=== PATIENT | male | born 1960 ===

== ENCOUNTER 2017-08-25 19:58 | Emergency (ER) | payer BC ==
[~2017-08-25] VITALS: Ht 170.2 cm; Wt 90.7 kg
[~2017-08-25 19:58] MED LIST: AMOX500C2 PO; AZIT-21 PO; CLN150C PO; HYDR118S10 PO; HYDR1TAB86 PO; LACT1CAP39 PO; LISI1TAB10 PO; LISI1TAB6 PO; LORA1TAB PO; METH4TAB PO; OMG1KC PO; ONDA-42 SL; PRD50T PO; SULF-222 PO; SULF1TAB38 PO
--- OUTSIDE RECORDS SUMMARY | 2017-08-25 20:03 | XMS REPORT | Continuity of Care Document ---
Author Author [facility] Organization [facility] Address Unknown Phone Unavailable Allergies Active Description Code Type Severity Reaction Onset Reported/Identified Relationship to Patient Clinical Status Yes No Known Drug Allergies [id number] Drug Allergy Mild N/A 06/28/2009 Medications There is no data. Problems Date Dx Coded Attending Type Code Diagnosis Diagnosed By 05/01/2011 Ot 401.9 HYPERTENSION NOS 05/01/2011 Ot 473.9 CHRONIC SINUSITIS NOS 05/01/2011 Ot 490 BRONCHITIS NOS 05/01/2011 Ot 786.2 COUGH 07/10/2013 BRUCE WIGGINS, LISBETH Jon Ot 038.9 SEPTICEMIA NOS 07/10/2013 BRUCE WIGGINS, LISBETH Jon Ot 401.9 HYPERTENSION NOS 07/10/2013 LISBETH BARRERA MD Ot 682.3 CELLULITIS OF ARM 07/10/2013 LISBETH BARRERA MD Ot 790.6 ABN BLOOD CHEMISTRY NEC 07/10/2013 LISBETH BARRERA MD Ot 881.10 OPEN WOUND FOREARM-COMPL 07/10/2013 LISBETH BARRERA MD Ot 995.91 SEPSIS 07/10/2013 LISBETH BARRERA MD Ot E000.8 OTHER EXTERNAL CAUSE STATUS 07/10/2013 LISBETH BARRERA MD Ot E920.8 ACC-CUTTING INSTRUM NEC 07/10/2013 LISBETH BARRERA MD Ot V06.1 [id number], COMBINED [ 07/10/2013 BRUCE WIGGINS, LISBETH Jon Ot V15.82 HISTORY OF TOBACCO USE 07/18/2013 MATEUS WIGGINS, YOHANA Pearson Ot 682.3 CELLULITIS OF ARM 07/24/2013 LISBETH BARRERA MD Ot 682.3 CELLULITIS OF ARM 07/24/2013 LISBETH BARRERA MD Ot 881.10 OPEN WOUND FOREARM-COMPL 07/24/2013 LISBETH BARRERA MD Ot E000.8 OTHER EXTERNAL CAUSE STATUS 07/24/2013 LISBETH BARRERA MD Ot E920.8 ACC-CUTTING INSTRUM NEC 06/14/2014 [facility] Ot 787.91 DIARRHEA Procedures Code Description Performed By Performed On 86.04 OTHER SKIN SUBQ I D 07/08/2013 Results There is no data. Encounters ACCT No. Visit Date/Time Discharge Status Pt. Type Provider Facility Loc./Unit Complaint [id number] 06/14/2014 11:10:00 06/14/2014 14:00:00 DIS Emergency [facility] ER ABD PAIN/DIARRHEA [id number] 07/17/2013 15:57:00 07/24/2013 08:57:00 DIS Outpatient BRUCE WIGGINS, LISBETH Jon [facility] WOUNDCARE SORE ARM [id number] 07/18/2013 09:06:00 07/18/2013 10:50:00 DIS Emergency MATEUS WIGGINS, YOHANA Pearson [facility] ER RIGHT ARM CELLULITIS [id number] 07/04/2013 11:30:00 07/10/2013 17:06:00 DIS Inpatient LISBETH BARRERA MD [facility] SURGICAL CELLULITIS [id number] 01/31/2013 12:57:00 01/31/2013 23:59:59 CLS Outpatient [id number] 05/01/2011 21:25:00 Document Registration [email or web address] 06/15/2014 01:27:29 ACT Document Registration
[2017-08-25] MEDS ORDERED: KETOROLAC 30 MG/ML VIAL IJ ONE (21:00)
--- NOTE | 2017-08-25 21:00 | ED GU-Male ---
General Chief Complaint: -Male Stated Complaint: PAINFUL URINATING Nursing Triage Note: PT REPORTS PAINFUL URINATION STARTING TODAY. HE ALSO C/O HEMATURIA AND FREQUENCY. Source: patient Exam Limitations: no limitations History of Present Illness Date Seen by Provider: Aug 25, 2017 Time Seen by Provider: 20:52 Initial Comments Patient presents to ER by private conveyance with a chief complaint of today started experiencing some bloody urine, dysuria and pain in his right flank and teste. He says he might of felt a little warm but no chills, sweats, nausea. He is having quite a bit of pain and has not taken anything for it yet. He says he does not have any significant medical history, history of kidney stones, history of urinary tract infections or STI's. He has no abdominal surgeries, history of recent trauma. He is not on blood thinners. Allergies and Home Medications Allergies Coded Allergies: No Known Drug Allergies (Unverified , 10/27/09) Home Medications Hctz/Lisinopril 1 Tab Tablet, 1 TAB PO DAILY Prescribed by: ANTHONY BURCIAGA on 07/04/13 1436 Hydrocodone Bit/Acetaminophen 1 Each Tablet, 1-2 EACH PO Q4H PRN for PAIN Prescribed by: RAFAEL DOBBS on 07/10/13 0855 Hydrocodone/Acetaminophen 1 Each Tablet, 1-2 EACH PO Q6H PRN for PAIN Prescribed by: YOHANA IGNACIO on 07/18/13 1046 Lactobacillus Rhamnosus 1 Cap Capsule, 1 CAP PO BID Prescribed by: RAFAEL DOBBS on 07/10/13 0855 [place] 3 Polyunsat Fatty Acids 1,000 Mg Cap, 2,000 MG PO BID Prescribed by: ANTHONY BURCIAGA on 07/04/13 1436 Ondansetron Hcl 4 Mg Tab, 4 MG SL Q4H PRN for NAUSEA/VOMITING FOR NAUSEA AND VOMITING Prescribed by: SYLVESTER SAHNI on 06/14/14 1259 Trimethoprim/Sulfamethoxazole 1 Ea Tablet, 1 EA PO BID Prescribed by: YOHANA IGNACIO on 07/18/13 1046 Trimethoprim/Sulfamethoxazole 1 Ea Tablet, 1 EA PO BID Prescribed by: SYLVESTER SAHNI on 06/14/14 1307 Patient Home Medication List Home Medication List Reviewed: Yes Constitutional: chills, No dizziness, No fever, malaise EENTM: No ear pain, No nose congestion Respiratory: No cough, No short of breath Cardiovascular: No chest pain, No palpitations Gastrointestinal: see HPI, abdominal pain, constipation, No diarrhea, No nausea , No vomiting Genitourinary: burning, denies discharge, dysuria, denies frequency Musculoskeletal: No back pain, No joint pain Skin: No pruritus, No rash Psychiatric/Neurological: Denies Headache, Denies Numbness Past Mtfduba-Rbcmwo-Pcgpyr Hx Patient Social History Alcohol Use: Denies Use Recreational Drug Use: No (QUIT SMOKING 2 YEARS AGO) Smoking Status: Former Smoker 2nd Hand Smoke Exposure: No Recent Foreign Travel: No Contact w/Someone Who Travel: No Recent Infectious Disease Expo: No Recent Hopitalizations: No Immunizations Up To Date Tetanus Booster (TDap): Less than 5yrs Date of Influenza Vaccine: Feb 24, 2013 Seasonal Allergies Seasonal Allergies: No Surgeries History of Surgeries: Yes (ARM) Respiratory History of Respiratory Disorde: No Cardiovascular History of Cardiac Disorders: No Cardiac Disorders: Hypertension Neurological History of Neurological Disord: No Gastrointestinal History of Gastrointestinal Di: No Musculoskeletal History of Musculoskeletal Dis: No Endocrine History of Endocrine Disorders: No Cancer History of Cancer: No Psychosocial History of Psychiatric Problem: No Integumentary History of Skin or Integumenta: No Blood Transfusions History of Blood Disorders: No Family Medical History Family Medial History: Family history: Hypertension 09 BROTHER 09 SISTER Physical Exam Vital Signs Vital Signs - First Documented 08/25/17 20:34 Temp 99.0 Pulse 70 Resp 16 B/P (MAP) 145/91 (109) Pulse Ox 100 O2 Delivery Room Air Capillary Refill : Less Than 3 Seconds General Appearance: WD/WN, no apparent distress HEENT: PERRL/EOMI, pharynx normal Neck: non-tender, normal inspection Cardiovascular: normal peripheral pulses, regular rate, rhythm Respiratory: no respiratory distress, no accessory muscle use Gastrointestinal: normal bowel sounds, non tender, soft Back: normal inspection, no vertebral tenderness, CVA tenderness (R) Extremities: normal range of motion, non-tender Neurologic/Psychiatric: no motor/sensory deficits, alert, oriented x 3 Skin: normal color, warm/dry Progress/Results/Core Measures Suspected Sepsis Recent Fever Within 48 Hours: No Infection Criteria Present: None New/Unexplained Altered Menta: No Sepsis Screen: No Definite Risk Sepsis Diagnosis: SIRS Temperature:99.0 Pulse: 70 Respiratory Rate: 16 Blood Pressure 145 /91 Mean: 109 Results/Orders Lab Results Laboratory Tests Test 08/25/17 20:45 Range/Units Urine Color RED H Urine Clarity VERY CLOUDY H Urine pH 6.5 5-9 Urine Specific [place] 1.010 L 1.016-1.022 Urine Protein 3+ H NEGATIVE Urine Glucose (UA) NEGATIVE NEGATIVE Urine Ketones NEGATIVE NEGATIVE Urine Nitrite POSITIVE H NEGATIVE Urine Bilirubin NEGATIVE NEGATIVE Urine Urobilinogen NORMAL NORMAL MG/DL Urine Leukocyte Esterase 3+ H NEGATIVE Urine RBC (Auto) 5+ H NEGATIVE Urine RBC TNTC H /HPF Urine WBC 10-25 H /HPF Urine Crystals NONE /LPF Urine Bacteria FEW H /HPF Urine Casts NONE /LPF Urine Mucus NEGATIVE /LPF Urine Culture Indicated YES My Orders Orders - BEN BENNETT Ua Culture If Indicated (08/25/17 20:22) Ct Abd/Pelvis Wo(Kidney Stone) (08/25/17 20:55) Ketorolac Injection (Toradol Injection) (08/25/17 21:00) Urine Culture (08/25/17 20:45) Medications Given in ED Current Medications Medications Dose Ordered Sig/Sue Route Start Time Stop Time Status Last Admin Dose Admin Ketorolac Tromethamine 30 mg ONCE ONCE IJ 08/25/17 21:00 08/25/17 21:01 DC 08/25/17 21:00 30 MG Vital Signs/I&O Vital Sign - Last 12Hours 08/25/17 20:34 Temp 99.0 Pulse 70 Resp 16 B/P (MAP) 145/91 (109) Pulse Ox 100 O2 Delivery Room Air Capillary Refill : Less Than 3 Seconds Blood Pressure Mean: 109 Progress Note : Time: 21:00 Progress Note Urine. Right flank pain extending down in the right testis. Concern for kidney stone versus malignancy etc. We don't find a stone we'll refer him to urology for follow-up and treat any infection appropriately. Ketorolac IM for pain. Diagnostic Imaging Diagonstic Imaging: CT (without contrast) Plain Films/CT/US/NM/MRI: abdomen, pelvis Comments NAME: THEO IRAHETA MED REC#: [id number] PT STATUS: REG ER : 1960 PHYSICIAN: BEN BENNETT MD ADMIT DATE: 04/01/18/ER Draft Date of Exam:08/25/17 CT ABD/PELVIS WO(KIDNEY STONE) PROCEDURE: CT urinary tract, rule out kidney stone. TECHNIQUE: Multiple contiguous axial images were obtained through the abdomen and pelvis without the use of intravenous contrast. INDICATION: Hematuria. Difficulty urinating. COMPARISON: CT abdomen and pelvis with IV contrast 06/14/2014. FINDINGS: Lung bases are clear. Diffuse fatty infiltration of the liver. The gallbladder, pancreas, spleen, adrenals, left kidney and collecting systems are negative on this noncontrast exam. Hypoattenuating exophytic mass measuring up 1.0 cm along the inferior pole of the right kidney likely represents a small hemorrhagic cyst. Enlarged prostate. Moderate bladder wall thickening. Large bilateral fat-containing inguinal hernias. Mild scattered diverticulosis without evidence of active diverticulitis. Negative appendix. No free intraperitoneal air or fluid. No lymphadenopathy. No evidence of bowel obstruction. Moderate spondylotic changes in the lumbar spine. No acute osseous findings. IMPRESSION: 1. Markedly enlarged prostate and bladder wall thickening suspicious for outlet obstruction. No hydronephrosis. No renal stones. 2. Large bilateral fat-containing inguinal hernias. 3. A 1.0 cm hypoattenuating exophytic mass along the inferior margin of the right kidney like represents a hemorrhagic cyst. This could be better evaluated with multiphasic dedicated contrast enhanced CT if clinically warranted. Dictated on workstation # [id number] Dict: 08/25/17 2147 Trans: 08/25/17 2157 [id number] [id number] Interpreted by: MAUREEN ZENG MD Electronically signed by: Reviewed: Reviewed by Me Departure Impression Impression: Primary Impression: Hemorrhage of cyst of [place] kidney Additional Impression: Urinary tract infection Qualified Codes: N30.01 - Acute cystitis with hematuria Disposition: HOME, SELF-CARE Condition: Stable Departure-Patient Inst. Decision time for Depature: 22:03 Referrals: [facility] (PCP/Family) Primary Care Physician Patient Instructions: Blood in the Urine (Hematuria), Adult (DC) Add. Discharge Instructions: Please call Dr. Pearce at [phone] to obtain an appointment this week. If you start to have chest pain, shortness of breath fevers or chills then you should return to care. Otherwise you need to follow-up with Dr. Pearce, urology for your kidney mass. Drink plenty of fluids and if you have a hard time urinating, initiating a stream or emptying your bladder then you should return to the ER. 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 All discharge instructions reviewed with patient and/or family. Voiced understanding. Scripts Sulfamethoxazole/Trimethoprim (Bactrim Ds Tablet) 1 Each Tablet 1 EACH PO BID, #20 TAB 0 Refills Prov: BEN BENNETT 08/25/17 Copy Copies To 1: CATRACHO BLUE DO; ANALI PEARCE MD, TITUS J Aug 25, 2017 21:00
[2017-08-25 21:04] LABS: BILIRUBIN,URINE NEGATIVE (NEGATIVE); CLARITY,URINE VERY CLOUDY; COLOR,URINE RED; GLUCOSE, URINE (UA) NEGATIVE (NEGATIVE); KETONES,URINE NEGATIVE (NEGATIVE); LEUKOCYTE ESTERASE ,URINE 3+ (NEGATIVE); NITRITE,URINE POSITIVE (NEGATIVE); PH,URINE 6.5 (5-9); PROTEIN,URINE 3+ (NEGATIVE); UROBILINOGEN,URINE NORMAL (NORMAL)
[2017-08-25 21:11] LABS: BACTERIA,URINE FEW /HPF; RBC,URINE TNTC /HPF
--- NOTE | 2017-08-25 21:57 | Diagnostic Imaging Report ---
PROCEDURE: CT urinary tract, rule out kidney stone. TECHNIQUE: Multiple contiguous axial images were obtained through the abdomen and pelvis without the use of intravenous contrast. INDICATION: Hematuria. Difficulty urinating. COMPARISON: CT abdomen and pelvis with IV contrast 06/14/2014. FINDINGS: Lung bases are clear. Diffuse fatty infiltration of the liver. The gallbladder, pancreas, spleen, adrenals, left kidney and collecting systems are negative on this noncontrast exam. Hyperattenuating exophytic mass measuring up 1.0 cm along the inferior pole of the right kidney likely represents a small hemorrhagic cyst. Enlarged prostate. Moderate bladder wall thickening. Large bilateral fat-containing inguinal hernias. Mild scattered diverticulosis without evidence of active diverticulitis. Negative appendix. No free intraperitoneal air or fluid. No lymphadenopathy. No evidence of bowel obstruction. Moderate spondylotic changes in the lumbar spine. No acute osseous findings. IMPRESSION: 1. Markedly enlarged prostate and bladder wall thickening suspicious for outlet obstruction. No hydronephrosis. No renal stones. 2. Large bilateral fat-containing inguinal hernias. 3. A 1.0 cm hyperattenuating exophytic mass along the inferior margin of the right kidney like represents a hemorrhagic cyst. This could be better evaluated with multiphasic dedicated contrast enhanced CT if clinically warranted. Dictated by: Dictated on workstation # [id number]
[2017-08-25] MEDS ORDERED: SULF1TAB35 PO (22:07)
[2017-08-25] MEDS ORDERED: cefTRIAXone 1 GM (ROCEPHIN) VIAL IM ONE (22:15)
[2017-08-25] MEDS ORDERED: LIDOCAINE 1% INJ 20 ML 20 ML VIAL INJ ONE (22:15)
[2017-08-25] MEDS ORDERED: LIDOCAINE PF 1% 5 ML (XYLOCAINE) AMP ONE (22:16)
[2017-08-25 22:21] VITALS: BP 145/91
== END 2017-08-25 22:21 | disposition home or self-care (01) ==
LOC: EDUNIT# 19:58 → ER 20:00
DX: N28.89 Other specified disorders of kidney and ureter (principal); N39.0 Urinary tract infection, site not specified; I10 Essential (primary) hypertension; Z87.442 Personal history of urinary calculi; Z87.891 Personal history of nicotine dependence
CPT/HCPCS: 74176; 81000; 87088; 87186; 96372

== ENCOUNTER → 2017-09-06 | Outpatient (CLI) | payer BC, OTHER ==
[~2017-09-06] MED LIST changes: +CATHETER FLUSH 10 ML SYR IV PRN; +IOHEXOL 350 MG/ML 100 ML (OMNIPAQUE 350) VIAL IV ONE; +NS 250 ML (IVPB) BAG IV ONE; +SULF1TAB35 PO
--- NOTE | 2017-09-06 09:14 | Diagnostic Imaging Report ---
PROCEDURE: CT abdomen with contrast only. TECHNIQUE: Multiple contiguous axial images were obtained through the abdomen after the administration of intravenous contrast. INDICATION: Abdominal pain and dysuria. Comparison is made with prior CT abdomen and pelvis without contrast from 08/25/2017. The lung bases are clear apart from elevation of right hemidiaphragm with associated subsegmental atelectasis in the right middle lobe and right lower lobe. The liver is diffusely low density consistent with hepatic steatosis. No discrete liver mass is identified. The gallbladder is unremarkable. The pancreas and spleen are unremarkable. No adrenal mass is identified. Left kidney is unremarkable. The previously noted exophytic lesion are arising from the lower pole of the right kidney is difficult to characterize due to small size as well as lack of precontrast images on today's study. Therefore, accurate assessment for enhancement cannot be performed. This lesion measures approximately 10 mm. This lesion appeared to measure approximately 7-[address] from 06/14/2014. The aorta is non-aneurysmal. No central retroperitoneal lymphadenopathy seen. Small and large bowel loops are normal caliber. There is no ascites. The appendix is unremarkable. Bony structures are nonacute. IMPRESSION: 1. 10 mm right lower pole renal lesion, as described. Assessment for enhancement cannot be performed due to absence of precontrast images. The lesion does have higher density measurements and could potentially represent a hemorrhagic cyst versus solid lesion. Continued close interval followup is recommended to confirm stability. When followup is obtained, pre-and postcontrast CT is recommended. 2. Hepatic steatosis. Dictated by: Dictated on workstation # [id number]
== END ==
LOC: RAD 08:30
PROVIDERS: ATTEND Urology
DX: N28.1 Cyst of kidney, acquired (principal)
CPT/HCPCS: 74160

== ENCOUNTER → 2017-12-20 | Outpatient (CLI) | payer BC ==
[~2017-12-20] MED LIST changes: +RECEIVED CONTRAST (Hold Metformin) IV SCH
[2017-12-20 09:01] LABS: BUN/CREATININE RATIO 15; CREATININE SERUM 0.72 MG/DL (0.60-1.30); GFR ESTIMATED > 60
--- NOTE | 2017-12-20 11:49 | Diagnostic Imaging Report ---
PROCEDURE: CT abdomen with and without contrast. TECHNIQUE: Multiple contiguous axial CT images of the abdomen were obtained prior to and after intravenous administration of iodinated contrast. INDICATION: Right renal cyst, abdominal pain. FINDINGS: Previous CT abdomen of 09/06/2017 did note a 10 MM right lower pole renal lesion. That finding is again evident on this study and does not appear to have changed significantly. This finding does not have the typical appearance of a simple cyst but this may well represent a benign process. The fact that this lesion has not changed significantly in size since the 2015 exam would also weigh against this finding being related to an aggressive neoplastic process. If further evaluation is desired, then ultrasound would be recommended. If the ultrasound exam is not performed, then a short-term (6 month) followup CT exam should be obtained. The overall appearance of the abdomen is otherwise no different. The low density appearance of liver does suggest fatty metamorphosis. The spleen, pancreas, adrenals, gallbladder, aorta and inferior vena cava are unremarkable for an acute abnormality. The stomach is is not well-distended and consequently difficult to assess. The lung bases are clear. The bone windows show no evidence for fracture or for destructive lesion. IMPRESSION: 1. The small 10 MM nodular density along the inferior pole of the right kidney is of uncertain etiology although most likely benign. Recommendations as above. 2. There is no acute abnormality of the abdomen. Dictated by: Dictated on workstation # [id number]
== END ==
LOC: RAD 08:28
PROVIDERS: ATTEND Urology
DX: N28.1 Cyst of kidney, acquired (principal)
CPT/HCPCS: 36415; 74170; 82565; 84520

== ENCOUNTER → 2018-03-28 | Outpatient (CLI) | payer BC ==
[~2018-03-28] MED LIST changes: -CATHETER FLUSH 10 ML SYR IV PRN
--- NOTE | 2018-03-28 09:07 | Diagnostic Imaging Report ---
PROCEDURE: CT abdomen with and without contrast. TECHNIQUE: Multiple contiguous axial CT images of the abdomen were obtained prior to and after intravenous administration of iodinated contrast. INDICATION: Renal cyst, followup. Comparison is made with prior CT from 12/20/2017. The lung bases remain clear apart from minimal scarring or atelectasis in the lingula. Diffuse low-density throughout the liver is again noted consistent with hepatic steatosis. The gallbladder is unremarkable. No biliary ductal dilatation is seen. The pancreas and spleen are unremarkable. No adrenal mass is identified. The left kidney is unremarkable. The small lesion involving the lower pole of the right kidney remains stable at approximately 10 mm. This is hyperdense but there does not appear to be significant contrast enhancement. This may represent a hemorrhagic cyst. The aorta is nonaneurysmal. No central, retroperitoneal or mesenteric lymphadenopathy is detected. Small and large bowel loops are normal caliber. The appendix is unremarkable. There is no ascites. IMPRESSION: 1. Stable 10 mm right lower pole renal lesion when compared with exam from 12/20/2017. This lesion has not shown much change since CT dating back to 06/14/2014 which is reassuring for benign etiology. 2. Hepatic steatosis. Dictated by: Dictated on workstation # [id number]
== END ==
LOC: RAD 08:05
PROVIDERS: ATTEND Urology
DX: N28.1 Cyst of kidney, acquired (principal); K76.0 Fatty (change of) liver, not elsewhere classified
CPT/HCPCS: 74170

== ENCOUNTER → 2018-09-26 | Outpatient (CLI) | payer BC ==
[~2018-09-26] MED LIST changes: -IOHEXOL 350 MG/ML 100 ML (OMNIPAQUE 350) VIAL IV ONE; -NS 250 ML (IVPB) BAG IV ONE; -RECEIVED CONTRAST (Hold Metformin) IV SCH
--- NOTE | 2018-09-26 12:45 | Diagnostic Imaging Report ---
PROCEDURE: CT abdomen without contrast. TECHNIQUE: Multiple contiguous axial images were obtained through the abdomen without the use of intravenous contrast. Auto Exposure Controls were utilized during the CT exam to meet ALARA standards for radiation dose reduction. INDICATION: Cyst, right kidney. FINDINGS: The previous CT abdomen/pelvis exam of 03/28/2018 noted a stable 10 mm right lower pole renal lesion. That finding is again evident on this study and does not appear to have changed significantly. This finding is slightly larger than noted on the prior exam of 06/14/2014 and does not appear to have changed significantly. Consequently, I do suspect that this is a benign process. The right kidney itself seems stable as well. The left kidney is unremarkable. The liver is of lower density than usually seen, and this appearance does suggest fatty metamorphosis. The spleen, pancreas, adrenals, gallbladder, aorta, and inferior vena cava are unremarkable for an acute abnormality. The stomach is not well distended and consequently difficult to assess. The lung bases are clear. There is mild compressive atelectasis in the right mid lung near the elevated right hemidiaphragm. The bone windows show no sign of a fracture or of a destructive lesion. There is trefoil stenosis at L3-4. IMPRESSION: 1. The small nodule along the inferior pole of the right kidney seen previously does not appear to have changed adversely. Most likely, this is a benign process. 2. There is no acute abnormality of the abdomen. 3. There is degenerative disc and bony disease involving the lumbar spine, and there is trefoil stenosis at L3-4. Dictated on workstation # [id number]
== END ==
LOC: RAD 08:32
PROVIDERS: ATTEND Urology
DX: N28.1 Cyst of kidney, acquired (principal); M47.816 Spondylosis without myelopathy or radiculopathy, lumbar region; M89.9 Disorder of bone, unspecified; M48.061 Spinal stenosis, lumbar region without neurogenic claudication
CPT/HCPCS: 74150

== ENCOUNTER 2019-10-30 12:56 | Emergency (ER) | payer BC ==
[~2019-10-30] VITALS: Ht 170 cm; Wt 93.0 kg
--- NOTE | 2019-10-30 14:05 | Diagnostic Imaging Report ---
INDICATION: Pain FINDINGS: There is extensive chondrocalcinosis in the right knee with marked meniscal calcifications laterally bilaterally. There is tricompartmental osteoarthritis. The disease is somewhat greater right than left. No fracture or dislocation. No acute bony abnormality. IMPRESSION: Bilateral osteoarthritis as well as chondrocalcinosis greater right than left. No fracture or acute bony abnormalities. Dictated by: Dictated on workstation # [id number]
--- NOTE | 2019-10-30 14:25 | ED Lower Extremity ---
General Chief Complaint: Lower Extremity Stated Complaint: KNEE PAIN Nursing Triage Note: PT CO OF BILATERAL KNEE PAIN, DENIES INJURY Nursing Sepsis Screen: No Definite Risk Source: patient Exam Limitations: no limitations History of Present Illness Date Seen by Provider: Oct 30, 2019 Time Seen by Provider: 13:10 Initial Comments Bilateral knee pain no injury for a long time but worse for the past week Onset: other Severity: moderate Pain/Injury Location: bilateral knee Method of Injury: unknown Modifying Factors: Worse With Movement Allergies and Home Medications Allergies Coded Allergies: No Known Drug Allergies (Unverified , 10/27/09) Home Medications Hctz/Lisinopril 1 Tab Tablet, 1 TAB PO DAILY Prescribed by: ANTHONY BURCIAGA on 07/04/13 1436 Hydrocodone Bit/Acetaminophen 1 Each Tablet, 1-2 EACH PO Q4H PRN for PAIN Prescribed by: RAFAEL DOBBS on 07/10/13 0855 Hydrocodone/Acetaminophen 1 Each Tablet, 1-2 EACH PO Q6H PRN for PAIN Prescribed by: YOHANA IGNACIO on 07/18/13 1046 Lactobacillus Rhamnosus 1 Cap Capsule, 1 CAP PO BID Prescribed by: RAFAEL DOBBS on 07/10/13 0855 Meloxicam 7.5 Mg Tablet, 7.5 MG PO DAILY Prescribed by: SYLVESTER SAHNI on 10/30/19 1426 [place] 3 Polyunsat Fatty Acids 1,000 Mg Cap, 2,000 MG PO BID Prescribed by: ANTHONY BURCIAGA on 07/04/13 1436 Ondansetron Hcl 4 Mg Tab, 4 MG SL Q4H PRN for NAUSEA/VOMITING FOR NAUSEA AND VOMITING Prescribed by: SYLVESTER SAHNI on 06/14/14 1259 Sulfamethoxazole/Trimethoprim 1 Each Tablet, 1 EACH PO BID Prescribed by: BEN BENNETT on 08/25/17 2207 Trimethoprim/Sulfamethoxazole 1 Ea Tablet, 1 EA PO BID Prescribed by: YOHANA IGNACIO on 07/18/13 1046 Trimethoprim/Sulfamethoxazole 1 Ea Tablet, 1 EA PO BID Prescribed by: SYLVESTER SAHNI on 06/14/14 1307 Patient Home Medication List Home Medication List Reviewed: Yes Review of Systems Constitutional: see HPI; No chills, No fever, No malaise, No weakness EENTM: see HPI Respiratory: no symptoms reported Cardiovascular: no symptoms reported Genitourinary: no symptoms reported Musculoskeletal: see HPI, joint pain; No muscle pain Skin: no symptoms reported Psychiatric/Neurological: No Symptoms Reported Past Ixurzfm-Kfocjo-Hcqxeq Hx Patient Social History Alcohol Use: Denies Use Recreational Drug Use: No Smoking Status: Never a Smoker 2nd Hand Smoke Exposure: No Recent Foreign Travel: No Contact w/Someone Who Travel: No Recent Infectious Disease Expo: No Recent Hopitalizations: No Physical Abuse: No Sexual Abuse: No Immunizations Up To Date Tetanus Booster (TDap): Less than 5yrs Date of Influenza Vaccine: Feb 24, 2013 Seasonal Allergies Seasonal Allergies: No Past Medical History Surgeries: Yes (ARM) Respiratory: No Cardiac: No Hypertension Neurological: No Gastrointestinal: No Musculoskeletal: No Endocrine: No Cancer: No Psychosocial: No Integumentary: No Blood Disorders: No Family Medical History Family history: Hypertension 09 BROTHER 09 SISTER Physical Exam Vital Signs Vital Signs - First Documented 10/30/19 13:13 Temp 36.4 Pulse 87 Resp 18 B/P (MAP) 144/88 (106) Pulse Ox 97 Capillary Refill : Less Than 3 Seconds Height, Weight, BMI Height: 5'7.00" Weight: 200lbs. oz. 90.128821eq; 32.00 BMI Method:Stated General Appearance: WD/WN, no apparent distress HEENT: PERRL/EOMI, normal ENT inspection Respiratory: no respiratory distress, no accessory muscle use Hips: bilateral hip non-tender, bilateral hip normal inspection, bilateral hip normal range of motion Legs: bilateral leg non-tender, bilateral leg normal inspection, bilateral leg normal range of motion Knees: bilateral knee non-tender, bilateral knee normal inspection, bilateral knee normal range of motion Ankles: bilateral ankle non-tender, bilateral ankle normal inspection, bilateral ankle normal range of motion Neurologic/Psychiatric: alert, normal mood/affect, oriented x 3 Skin: normal color, warm/dry Progress/Results/Core Measures Results/Orders My Orders Orders - SYLVESTER SAHNI APRN Knee, 3 Views, Bilateral (10/30/19 13:18) Vital Signs/I&O 10/30/19 13:13 Temp 36.4 Pulse 87 Resp 18 B/P (MAP) 144/88 (106) Pulse Ox 97 Blood Pressure Mean: 106 Departure Impression Primary Impression: Osteoarthritis Qualified Codes: M17.0 - Bilateral primary osteoarthritis of knee Disposition: HOME, SELF-CARE Condition: Stable Departure-Patient Inst. Decision time for Depature: 14:25 Referrals: NO,LOCAL PHYSICIAN (PCP/Family) Primary Care Physician Patient Instructions: Osteoarthritis Add. Discharge Instructions: 1. Return to ER for any concerns 2. Follow-up with your doctor next week 3. All discharge instructions reviewed with patient and/or family. Voiced understanding. 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
[2019-10-30] MEDS ORDERED: MELO7.5T46 PO (14:26)
[2019-10-30 14:31] VITALS: BP 144/88
--- OUTSIDE RECORDS SUMMARY | 2019-10-30 15:17 | XMS REPORT | Continuity of Care Document ---
Author Organization Unknown Address Unknown Phone Unavailable Allergies Active Description Code Type Severity Reaction Onset Reported/Identified Relationship to Patient Clinical Status Yes No Known Drug Allergies [id number] Drug Allergy Mild N/A 06/28/2009 Medications There is no data. Problems Date Dx Coded Attending Type Code Diagnosis Diagnosed By 05/01/2011 Ot 401.9 HYPE RTENSION NOS 05/01/2011 Ot 473.9 COLOR STRAINER MADDIE SINUSITIS NOS 05/01/2011 Ot 490 BRONCH ITIS NOS 05/01/2011 Ot 786.2 COUGH 07/10/2013 LISBETH BARRERA MD Ot 038.9 SEPTICEMIA NOS 07/10/2013 LISBETH BARRERA MD Ot 401.9 HYPERTENSION NOS 07/10/2013 LISBETH BARRERA [...] NEC 07/10/2013 LISBETH BARRERA MD Ot V06.1 [id number], COMBINED [ 07/10/2013 LISBETH BARRERA MD Ot V15.82 HISTORY OF TOBACCO USE 07/18/2013 MATEUS WIGGINS, YOHANA Pearson Ot 682.3 CELLULITIS OF ARM 07/24/2013 LISBETH BARRERA MD Ot 682.3 CELLULITIS OF ARM 07/24/2013 LISBETH BARRERA MD Ot 881.10 OPEN WOUND FOREARM-COMPL 07/24/2013 LISBETH BARRERA MD Ot E000.8 OTHER EXTERNAL CAUSE STATUS 07/24/2013 LISBETH BARRERA MD Ot E920.8 ACC-CUTTING INSTRUM NEC 06/14/2014 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 89 OTHER SPECIFIED DISORDERS OF KIDNEY AND 08/25/2017 BEN BENNETT MD Ot N39. 0 URINARY TRACT INFECTION, SITE NOT SPECIF 08/25/2017 BEN BENNETT MD Ot R30. 0 DYSURIA 08/25/2017 BEN BENNETT MD J Ot Z87.442 PERSONAL HISTORY OF URINARY CALCULI 08/25/2017 BEN BENNETT MD Ot Z87.891 PERSONAL HISTORY OF NICOTINE DEPENDENCE 08/27/2017 BEN BENNETT MD Ot I10 ESSENTIAL (PRIMARY) HYPERTENSION 08/27/2017 BEN BENNETT MD Ot N28. 89 OTHER SPECIFIED DISORDERS OF KIDNEY AND 08/27/2017 BEN BENNETT MD Ot N39. 0 URINARY TRACT INFECTION, SITE NOT SPECIF 08/27/2017 BEN BENNETT MD Ot R30. 0 DYSURIA 08/27/2017 BEN BENNETT MD Ot Z87.442 PERSONAL HISTORY OF URINARY CALCULI 08/27/2017 BEN BENNETT MD Ot Z87.891 PERSONAL HISTORY OF NICOTINE DEPENDENCE 09/09/2017 RAMSES WIGGINS, ANALI A Ot N28.1 CYST OF KIDNEY, ACQUIRED 09/16/2017 RAMSES WIGGINS, ANALI A Ot N28.1 CYST OF KIDNEY, ACQUIRED 09/25/2017 RAMSES WIGGINS, ANALI A Ot N28.1 CYST OF KIDNEY, ACQUIRED 10/18/2017 RAMSES WIGGINS, ANALI A Ot N28.1 CYST OF KIDNEY, ACQUIRED 12/16/2017 RAMSES WIGGINS, ANALI A Ot N28.1 CYST OF KIDNEY, ACQUIRED 12/16/2017 RAMSES WIGGINS, ANALI A Ot N28.1 CYST OF KIDNEY, ACQUIRED 01/13/2018 RAMSES WIGGINS, ANALI A Ot N28.1 CYST OF KIDNEY, ACQUIRED 01/17/2018 RAMSES WIGGINS, ANALI A Ot N28.1 CYST OF KIDNEY, ACQUIRED 01/17/2018 RAMSES WIGGINS, ANALI A Ot N28.1 CYST OF KIDNEY, ACQUIRED 03/18/2018 ANALI PEARCE MD Ot N28.1 CYST OF KIDNEY, ACQUIRED 03/31/2018 ANALI PEARCE MD, Ot K76.0 FATTY (CHANGE OF) LIVER, NOT ELSEWHERE C 03/31/2018 ANALI PEARCE MD, Ot N28.1 CYST OF KIDNEY, ACQUIRED 04/03/2018 ANALI PEARCE MD Ot K76.0 FATTY (CHANGE OF) LIVER, NOT ELSEWHERE C 04/03/2018 ANALI PEARCE MD, Ot N28.1 CYST OF KIDNEY, ACQUIRED 05/23/2018 ANALI PEARCE MD Ot K76.0 FATTY (CHANGE OF) LIVER, NOT ELSEWHERE C 05/23/2018 ANALI PEARCE MD, Ot N28.1 CYST OF KIDNEY, ACQUIRED 06/24/2018 ANALI PEARCE MD, Ot N28.1 CYST OF KIDNEY, ACQUIRED 06/24/2018 ANALI PEARCE MD, Ot N28.1 CYST OF KIDNEY, ACQUIRED 06/24/2018 ANALI PEARCE MD Ot K76.0 FATTY (CHANGE OF) LIVER, NOT ELSEWHERE C 06/24/2018 ANALI PEARCE MD, Ot N28.1 CYST OF KIDNEY, ACQUIRED 06/24/2018 ANALI PEARCE MD Ot K76.0 FATTY (CHANGE OF) LIVER, NOT ELSEWHERE C 06/24/2018 ANALI PEARCE MD, Ot N28.1 CYST OF KIDNEY, ACQUIRED 07/08/2018 ANALI PEARCE MD Ot K76.0 FATTY (CHANGE OF) LIVER, NOT ELSEWHERE C 07/08/2018 ANALI PEARCE MD, Ot N28.1 CYST OF KIDNEY, ACQUIRED 09/28/2018 ANALI PEARCE MD, Ot 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 09/28/2018 ANALI PEARCE MD, Ot M48.0 61 SPINAL STENOSIS, LUMBAR REGION WITHOUT N 09/28/2018 ANALI PEARCE MD, Ot M89.9 DISORDER OF BONE, UNSPECIFIED 09/28/2018 ANALI PEARCE MD Ot N28.1 CYST OF KIDNEY, ACQUIRED 2018 ANALI PEARCE MD, Ot N28.1 CYST OF KIDNEY, ACQUIRED 2018 ANALI PEARCE MD, Ot N28.1 CYST OF KIDNEY, ACQUIRED 2018 ANALI PEARCE MD, Ot K76.0 FATTY (CHANGE OF) LIVER, NOT ELSEWHERE C 2018 ANALI PEARCE MD, Ot N28.1 CYST OF KIDNEY, ACQUIRED 2018 ANALI PEARCE MD, Ot 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 2018 ANALI PEARCE MD Ot M48.0 61 SPINAL STENOSIS, LUMBAR REGION WITHOUT N 2018 ANALI PEARCE MD, Ot M89.9 DISORDER OF BONE, UNSPECIFIED 2018 ANALI PEARCE MD, Ot N28.1 CYST OF KIDNEY, ACQUIRED 11/12/2018 ANALI PEARCE MD, Ot 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 11/12/2018 ANALI PEARCE MD Ot M48.0 61 SPINAL STENOSIS, LUMBAR REGION WITHOUT N 11/12/2018 ANALI EPARCE MD, Ot M89.9 DISORDER OF BONE, UNSPECIFIED 11/12/2018 ANALI PEARCE MD, Ot N28.1 CYST OF KIDNEY, ACQUIRED 11/14/2018 ANALI PEARCE MD, Ot 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 11/14/2018 ANALI PEARCE MD, Ot M48.0 59 SPINAL STENOSIS, LUMBAR REGION WITHOUT N 11/14/2018 ANALI PEARCE MD, Ot M89.9 DISORDER OF BONE, UNSPECIFIED 11/14/2018 ANALI PEARCE MD, Ot N28.1 CYST OF KIDNEY, ACQUIRED 06/06/2019 SUREKHAGERARDO GUILLEN F M53.3 Sacrococcygeal disorders, not elsewhere classified 06/06/2019 SUREKHAGERARDO GUILLEN A F M54.2 Cervicalgia 06/06/2019 GERARDO IRBY F M62.8 38 Other muscle spasm Procedures Code Description Performed By Per formed On 86.04 OTHE R SKIN SUBQ I D 07/08/2013 Results Test Result Range Complete urinalysis with reflex to cultu re - 08/25/17 20:45 Urine color determination RED NRG Urine clarity determination VERY CLOUDY NRG Urine pH measurement by test strip 6.5 5-9 Specific gravity of urine by test strip 1.010 1.016-1.022 Urine protein assay by test strip, semi-quantitative 3+ NEGATIVE Urine glucose detection by automated test strip NE GATIVE NEGATIVE Erythrocytes detection in urine sediment by light micr oscopy 5+ NEGATIVE Urine ketones detection by automated test strip NE GATIVE NEGATIVE Urine nitrite detection by test strip POSITIVE NEGATIVE Urine total bilirubin detection by test strip NEGA TIVE NEGATIVE Urine urobilinogen measurement by automated test strip (mass/volume) NORMAL NORMAL Urine leukocyte esterase detection by dipstick 3+ NEGATIVE Automated urine sediment erythrocyte cou nt by microscopy (number/high power field) TNTC NRG Automated urine sediment leukocyte count by microscopy (number/high power field) [HPF] NRG Bacteria detection in urine sediment by light microsco py FEW NRG Crystals detection in urine sediment by light microsco py NONE NRG Casts detection in urine sediment by light microscopy NONE NRG Mucus detection in urine sediment by light microscopy NEGATIVE NRG Complete urinalysis with reflex to culture YES NRG Bacterial urine culture - 08/25/17 20:45 Bacterial urine culture [id number] [facility] Bacterial susceptibility panel - 8 20:45 Gentamicin susceptibility test by minimum inhibitory c oncentration <= NRG Trimethoprim/sulfamethoxazole susceptibi lity test by minimum inhibitoryconcentration S NRG Ampicillin susceptibility test by minimum inhibitory c oncentration <= NRG Tobramycin susceptibility test by minimum inhibitory c oncentration <= NRG Cefazolin susceptibility test by minimum inhibitory co ncentration <= NRG Ceftriaxone susceptibility test by minimum inhibitory concentration <= NRG Ampicillin/sulbactam susceptibility test by minimum inhibitory concentration <= NRG Piperacillin/tazobactam susceptibility t est by minimum inhibitory concentration S NRG Ciprofloxacin susceptibility test by minimum inhibitor y concentration <= NRG Meropenem susceptibility test by minimum inhibitory co ncentration <= NRG Nitrofurantoin susceptibility test by mi nimum inhibitory concentration <= NRG Aztreonam susceptibility test by minimum inhibitory co ncentration <= NRG Extended spectrum beta lactamase (ESBL) producing bacteria susceptibility test by minimum inhibitory concentration - [facility] [id number] - 12/20/17 08:41 Serum or plasma urea nitrogen measurement (mass/volume ) 11 mg/dL 7-18 Serum or plasma creatinine measurement (mass/volume) 0.72 mg/dL 0.60-1.30 Serum or plasma urea nitrogen/creatinine mass ratio 15 NRG Serum or plasma creatinine measurement w ith calculation of estimated glomerular filtration rate > NRG Encounters ACCT No. Visit Date/Time Discharge Status Pt. Type Provider Facility Loc./Unit Complaint [id number] 06/06/2019 15:04:00 06/06/2019 16: 20:00 DIS Emergency SUREKHA GERARDO A [facility] ED [id number] 09/26/2018 08:32:00 019 23:59:59 CLS Outpatient ANALI PEARCE MD [facility] RAD RT COMPLEX RENAL CYST [id number] 03/28/2018 08:05:00 018 23:59:59 CLS Outpatient ANALI PEARCE MD [facility] RAD RT COMPLEX RENAL CYST [id number] 12/20/2017 08:28:00 018 23:59:59 CLS Outpatient ANALI PEARCE MD [facility] RAD RV COMPLEX URAL CYST [id number] 09/06/2017 08:30:00 018 23:59:59 CLS Outpatient ANALI PEARCE MD [facility] RAD RT RENAL CYST [id number] 08/25/2017 20:00:00 018 22:21:00 DIS Emergency BEN BENNETT MD [facility] ER PAINFUL URINATING [id number] 06/14/2014 11:10:00 015 14:00:00 DIS Emergency SYLVESTER SAHNI APRN [facility] ER ABD PAIN/DIARRHEA [id number] 07/17/2013 15:57:00 014 08:57:00 DIS Outpatient BRUCE WIGGINS, LISBETH Jon [facility] WOUNDCARE SORE ARM [id number] 07/18/2013 09:06:00 014 10:50:00 DIS Emergency YOHANA IGNACIO MD [facility] ER RIGHT ARM CELLU LITIS [id number] 07/04/2013 11:30:00 014 17:06:00 DIS Inpatient BRUCE WIGGINS, LISBETH Jon [facility] SURGICAL CELLULITIS [id number] 01/31/2013 12:57:00 013 23:59:59 CLS Outpatient [id number] 10/30/2019 12:57:[address] Emergency SYLVESTER SAHNI APRN [facility] ER KNEE PAIN [id number] 05/01/2011 21:25:00 Document Registration
== END 2019-10-30 14:31 | disposition home or self-care (01) ==
LOC: EDUNIT# 12:56 → ER 12:57
DX: M17.0 Bilateral primary osteoarthritis of knee (principal); I10 Essential (primary) hypertension; Z82.49 Family history of ischemic heart disease and other diseases of the circulatory system

== ENCOUNTER 2019-12-22 19:13 | Emergency (ER) | payer BC ==
[~2019-12-22] VITALS: Ht 167 cm; Wt 90.7 kg
[~2019-12-22 19:13] MED LIST changes: +MELO7.5T46 PO
[2019-12-22] MEDS ORDERED: NS IV 1000 ML 1,000 ML IV SCH ×2 (19:45→20:30)
[2019-12-22 19:46] LABS: BILIRUBIN,URINE NEGATIVE (NEGATIVE); CLARITY,URINE SL CLOUDY; COLOR,URINE YELLOW; GLUCOSE, URINE (UA) NEGATIVE (NEGATIVE); KETONES,URINE NEGATIVE (NEGATIVE); LEUKOCYTE ESTERASE ,URINE 3+ (NEGATIVE); NITRITE,URINE NEGATIVE (NEGATIVE); PROTEIN,URINE NEGATIVE (NEGATIVE)
--- NOTE | 2019-12-22 19:54 | ED Abdominal Pain ---
General Stated Complaint: PAINFUL UNRINATION Source of Information: Patient Exam Limitations: No Limitations History of Present Illness Date Seen by Provider: Dec 22, 2019 Time Seen by Provider: 19:43 Initial Comments 59-year-old male who presents to the emergency room with complaints of burning and pain with urination. He reports that he's had this in the past and received for antibiotics. Denies any nausea, vomiting, diarrhea. He denies any fevers. Timing/Duration: 1-2 Days Location: [facility] Associated Symptoms: Denies Symptoms Allergies and Home Medications Allergies Coded Allergies: No Known Drug Allergies (Unverified , 10/27/09) Home Medications Ciprofloxacin HCl 500 Mg Tablet, 500 MG PO BID Prescribed by: FABIAN LANDAVERDE on 12/22/19 2145 Hctz/Lisinopril 1 Tab Tablet, 1 TAB PO DAILY Prescribed by: ANTHONY BURCIAGA on 07/04/13 1436 Hydrocodone Bit/Acetaminophen 1 Each Tablet, 1-2 EACH PO Q4H PRN for PAIN Prescribed by: RAFAEL DOBBS on 07/10/13 0855 Hydrocodone/Acetaminophen 1 Each Tablet, 1-2 EACH PO Q6H PRN for PAIN Prescribed by: YOHANA IGNACIO on 07/18/13 1046 Lactobacillus Rhamnosus 1 Cap Capsule, 1 CAP PO BID Prescribed by: RAFAEL DOBBS on 07/10/13 0855 Meloxicam 7.5 Mg Tablet, 7.5 MG PO DAILY Prescribed by: SYLVESTER SAHNI on 10/30/19 1426 [place] 3 Polyunsat Fatty Acids 1,000 Mg Cap, 2,000 MG PO BID Prescribed by: ANTHONY BURCIAGA on 07/04/13 1436 Ondansetron Hcl 4 Mg Tab, 4 MG SL Q4H PRN for NAUSEA/VOMITING FOR NAUSEA AND VOMITING Prescribed by: SYLVESTER SAHNI on 06/14/14 1259 Sulfamethoxazole/Trimethoprim 1 Each Tablet, 1 EACH PO BID Prescribed by: BEN BENNETT on 08/25/17 2207 Trimethoprim/Sulfamethoxazole 1 Ea Tablet, 1 EA PO BID Prescribed by: YOHANA IGNACIO on 07/18/13 1046 Trimethoprim/Sulfamethoxazole 1 Ea Tablet, 1 EA PO BID Prescribed by: SYLVESTER SAHNI on 06/14/14 1307 Patient Home Medication List Home Medication List Reviewed: Yes Review of Systems Review of Systems Constitutional: see HPI; No chills, No fever Genitourinary: See HPI, Burning, Urgency All Other Systems Reviewed Negative Unless Noted: Yes Past Qhjdzkr-Dlnjzq-Ehsrnm Hx Past Med/Social Hx: Reviewed Nursing Past Med/Soc Hx Patient Social History 2nd Hand Smoke Exposure: No Recent Foreign Travel: No Contact w/Someone Who Travel: No Recent Hopitalizations: No Immunizations Up To Date Tetanus Booster (TDap): Less than 5yrs Date of Influenza Vaccine: Feb 24, 2013 Seasonal Allergies Seasonal Allergies: No Past Medical History Surgeries: Yes (ARM) Respiratory: No Cardiac: No Hypertension Neurological: No Gastrointestinal: No Musculoskeletal: No Endocrine: No Cancer: No Psychosocial: No Integumentary: No Blood Disorders: No Family Medical History Reviewed Nursing Family Hx Family history: Hypertension 09 BROTHER 09 SISTER Physical Exam Vital Signs Vital Signs - First Documented 12/22/19 12/22/19 19:35 21:52 Temp 36.9 Pulse 144 Resp 20 B/P (MAP) 165/107 (126) Pulse Ox 96 O2 Delivery Room Air Capillary Refill : Height/Weight/BMI Height: 5'7.00" Weight: 200lbs. oz. 90.014543vq; 32.00 BMI Method:Stated General Appearance: WD/WN, no apparent distress Respiratory: chest non-tender, lungs clear, normal breath sounds, no respiratory distress, no accessory muscle use Cardiovascular: normal peripheral pulses, no edema, no gallop, no JVD, no murmur, tachycardia Gastrointestinal: normal bowel sounds, non tender, soft, no organomegaly, no pulsatile mass Extremities: normal capillary refill Back: no CVA tenderness Neurologic/Psychiatric: alert, normal mood/affect, oriented x 3 Skin: normal color, warm/dry Progress/Results/Core Measures Results/Orders Lab Results Laboratory Tests Test 12/22/19 19:30 12/22/19 20:05 Range/Units Urine Color YELLOW Urine Clarity SL CLOUDY Urine pH 6.0 5-9 Urine Specific [place] 1.020 1.016-1.022 Urine Protein NEGATIVE NEGATIVE Urine Glucose (UA) NEGATIVE NEGATIVE Urine Ketones NEGATIVE NEGATIVE Urine Nitrite NEGATIVE NEGATIVE Urine Bilirubin NEGATIVE NEGATIVE Urine Urobilinogen 0.2 < = 1.0 MG/DL Urine Leukocyte Esterase 3+ H NEGATIVE Urine RBC (Auto) 2+ H NEGATIVE Urine RBC 10-25 H /HPF Urine WBC >100 H /HPF Urine Crystals PRESENT H /LPF Urine Amorphous Sediment FEW DARRIUS URATES H /LPF Urine Bacteria FEW H /HPF Urine Casts NONE /LPF Urine Mucus NEGATIVE /LPF Urine Culture Indicated YES White Blood Count 18.4 H 4.3-11.0 10^3/uL Red Blood Count 5.29 4.35-5.85 10^6/uL Hemoglobin 15.8 13.3-17.7 G/DL Hematocrit 45 40-54 % Mean Corpuscular Volume 85 80-99 FL Mean Corpuscular Hemoglobin 30 25-34 PG Mean Corpuscular Hemoglobin Concent 35 32-36 G/DL Red Cell Distribution Width 13.4 10.0-14.5 % Platelet Count 217 130-400 10^3/uL Mean Platelet Volume 11.7 H 7.4-10.4 FL Neutrophils (%) (Auto) 88 H 42-75 % Lymphocytes (%) (Auto) 5 L 12-44 % Monocytes (%) (Auto) 6 0-12 % Eosinophils (%) (Auto) 0 0-10 % Basophils (%) (Auto) 0 0-10 % Neutrophils # (Auto) 16.3 H 1.8-7.8 X 10^3 Lymphocytes # (Auto) 1.0 1.0-4.0 X 10^3 Monocytes # (Auto) 1.1 H 0.0-1.0 X 10^3 Eosinophils # (Auto) 0.0 0.0-0.3 10^3/uL Basophils # (Auto) 0.0 0.0-0.1 10^3/uL Neutrophils % (Manual) 89 % Lymphocytes % (Manual) 5 % Monocytes % (Manual) 6 % Blood Morphology Comment NORMAL Sodium Level 138 135-145 MMOL/L Potassium Level 3.6 3.6-5.0 MMOL/L Chloride Level 102 98-107 MMOL/L Carbon Dioxide Level 23 21-32 MMOL/L Anion Gap 13 5-14 MMOL/L Blood Urea Nitrogen 15 7-18 MG/DL Creatinine 0.89 0.60-1.30 MG/DL Estimat Glomerular Filtration Rate > 60 BUN/Creatinine Ratio 17 Glucose Level 149 H 70-105 MG/DL Calcium Level 9.5 8.5-10.1 MG/DL Corrected Calcium 9.1 8.5-10.1 MG/DL Total Bilirubin 0.6 0.1-1.0 MG/DL Aspartate Amino Transf (AST/SGOT) 78 H 5-34 U/L Alanine Aminotransferase (ALT/SGPT) 107 H 0-55 U/L Alkaline Phosphatase 92 40-136 U/L Total Protein 7.5 6.4-8.2 GM/DL Albumin 4.5 3.2-4.5 GM/DL Amylase Level 72 25-125 U/L Lipase 36 8-78 U/L My Orders Orders - FABIAN LANDAVERDE Ua Culture If Indicated (12/22/19 19:26) Comprehensive Metabolic Panel (12/22/19 19:42) Lipase (12/22/19 19:42) Amylase (12/22/19 19:42) Ed Iv/Invasive Line Start (12/22/19 19:42) Cbc With Automated Diff (12/22/19 19:42) Ns Iv 1000 Ml (Sodium Chloride 0.9%) (12/22/19 19:45) Fentanyl Injection (Sublimaze Injection (12/22/19 20:00) Urine Culture (12/22/19 19:30) Manual Differential (12/22/19 20:05) Ns Iv 1000 Ml (Sodium Chloride 0.9%) (12/22/19 20:30) Ceftriaxone For Iv Use (Rocephin For I (12/22/19 20:30) Medications Given in ED Current Medications Medications Dose Ordered Sig/Sue Route Start Time Stop Time Status Last Admin Dose Admin Ceftriaxone Sodium 1000 mg/ Sterile Water 10 ml @ 200 mls/hr ONCE ONCE IV 12/22/19 20:30 12/22/19 20:32 DC 12/22/19 20:42 200 MLS/HR Fentanyl Citrate 50 mcg ONCE ONCE IVP 12/22/19 20:00 12/22/19 20:01 DC 12/22/19 20:04 50 MCG Vital Signs/I&O 12/22/19 12/22/19 19:35 21:52 Temp 36.9 36.9 Pulse 144 88 Resp 20 19 B/P (MAP) 165/107 (126) 135/93 (126) Pulse Ox 96 99 O2 Delivery Room Air Progress Progress Note : Time: 21:39 Progress Note I informed the patient of his laboratory studies. I informed him that he needs very close follow-up to ensure that he is improving within the next couple of days. He was discussed with him the option of being admitted and he declines and wants to try outpatient oral antibiotics. He states that if he cannot get an appointment at [facility] he will go to the walk-in clinic in the next couple of days. He agrees with plan of care plans for discharge. Departure Impression Primary Impression: Urinary tract infection Disposition: HOME, SELF-CARE Condition: Stable/Unchanged Departure-Patient Inst. Decision time for Depature: 21:41 Referrals: NO,LOCAL PHYSICIAN (PCP/Family) Primary Care Physician Patient Instructions: Urinary Tract Infection, Adult (DC) Add. Discharge Instructions: Be sure you're drinking plenty of fluids to stay hydrated and help flush out your urinary tract. Take your antibiotics as directed. Return back to the emergency room for worsening symptoms or concerns as needed. Scripts Ciprofloxacin HCl (Cipro) 500 Mg Tablet 500 MG PO BID for 7 Days, #14 TAB Prov: FABIAN LANDAVERDE 12/22/19 FABIAN LANDAVERDE Dec 22, 2019 19:54
[2019-12-22 20:00] LABS: WBC,URINE >100 /HPF
[2019-12-22] MEDS ORDERED: fentaNYL INJECTION 100 MCG/2 ML AMP IVP ONE (20:00)
[2019-12-22 20:01] LABS: AMORPHOUS SEDIMENT,UR FEW AMOR URATES /LPF; BACTERIA,URINE FEW /HPF
[2019-12-22 20:16] LABS: BASOPHILS % (AUTO) 0 % (0-10); EOSINOPHILS % (AUTO) 0 % (0-10); HEMATOCRIT 45 % (40-54); HEMOGLOBIN 15.8 G/DL (13.3-17.7); LYMPHOCYTES % (AUTO) 5 % (12-44); MEAN CORPUSCULAR HEMOGLOBIN 30 PG (25-34); MEAN CORPUSCULAR HGB CONC 35 G/DL (32-36); MEAN CORPUSCULAR VOLUME 85 FL (80-99); MEAN PLATELET VOLUME 11.7 FL (7.4-10.4); MONOCYTES # (AUTO) 1.1 X 10^3 (0.0-1.0); MONOCYTES % (AUTO) 6 % (0-12); NEUTROPHILS # (AUTO) 16.3 X 10^3 (1.8-7.8); NEUTROPHILS % (AUTO) 88 % (42-75); PLATELET COUNT 217 10^3/uL (130-400); RED CELL DISTRIBUTION WIDTH 13.4 % (10.0-14.5); WHITE BLOOD COUNT 18.4 10^3/uL (4.3-11.0)
[2019-12-22] MEDS ORDERED: cefTRIAXone FOR IV USE 1,000 MG in WATER (STERILE) FOR INJECTION 10 ML IV ONE (20:30)
[2019-12-22 20:31] LABS: ALANINE AMINOTRANSFERASE 107 U/L (0-55); ALBUMIN 4.5 GM/DL (3.2-4.5); ALKALINE PHOSPHATASE 92 U/L (40-136); AMYLASE 72 U/L (25-125); BILIRUBIN,TOTAL 0.6 MG/DL (0.1-1.0); BUN/CREATININE RATIO 17; CALCIUM 9.5 MG/DL (8.5-10.1); CARBON DIOXIDE 23 MMOL/L (21-32); CHLORIDE 102 MMOL/L (98-107); CREATININE SERUM 0.89 MG/DL (0.60-1.30); GFR ESTIMATED > 60; GLUCOSE 149 MG/DL (70-105); LIPASE 36 U/L (8-78); POTASSIUM 3.6 MMOL/L (3.6-5.0); SODIUM 138 MMOL/L (135-145); TOTAL PROTEIN 7.5 GM/DL (6.4-8.2)
[2019-12-22 21:04] LABS: LYMPHOCYTES % (MANUAL) 5 %; MONOCYTES % (MANUAL) 6 %; NEUTROPHILS % (MANUAL) 89 %; RBC MORPH NORMAL
[2019-12-22] MEDS ORDERED: CIPR-225 PO (21:45)
[2019-12-22 21:52] VITALS: BP 135/93
--- OUTSIDE RECORDS SUMMARY | 2019-12-22 22:24 | XMS REPORT | Continuity of Care Document ---
Author Organization Unknown Address Unknown Phone Unavailable Allergies Active Description Code Type Severity Reaction Onset Reported/Identified Relationship to Patient Clinical Status Yes No Known Drug Allergies [id number] Drug Allergy Mild N/A 06/28/2009 Medications There is no data. 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 NOS 05/01/2011 Ot 490 BRONCH [...] NEC 07/10/2013 LISBETH BARRERA MD Ot V06.1 [id number], COMBINED [ 07/10/2013 LISBETH BARRERA MD Ot V15.82 HISTORY OF TOBACCO USE 07/18/2013 MATEUS WIGGINS, YOHANA Pearson Ot 682.3 CELLULITIS OF ARM 07/24/2013 LISBETH BARRERA MD Ot 682.3 CELLULITIS OF ARM 07/24/2013 LISBETH BARRERA MD Ot 881.10 OPEN WOUND FOREARM-COMPL 07/24/2013 LISBETH BARRERA MD Ot E000.8 OTHER EXTERNAL CAUSE STATUS 07/24/2013 LISBETH BARRERA MD Ot E920.8 ACC-CUTTING INSTRUM NEC 06/14/2014 SYLVESTER SAHNI 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 Ot 787.91 DIARRHEA 08/25/2017 BEN BENNETT MD [...] CYST OF KIDNEY, ACQUIRED 2018 ANALI PEARCE MD Ot N28.1 CYST OF KIDNEY, ACQUIRED 2018 ANALI PEARCE MD Ot K76.0 FATTY (CHANGE OF) LIVER, NOT ELSEWHERE C 2018 ANALI PEARCE MD, Ot N28.1 CYST OF KIDNEY, ACQUIRED 2018 ANALI PEARCE MD Ot 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 2018 ANALI PEARCE MD Ot M48.0 61 SPINAL STENOSIS, LUMBAR REGION WITHOUT N 2018 ANALI PEARCE MD Ot M89.9 DISORDER OF BONE, UNSPECIFIED 2018 ANALI PEARCE MD, Ot N28.1 CYST OF KIDNEY, ACQUIRED 11/12/2018 ANALI PEARCE MD Ot 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 11/12/2018 ANALI PEARCE MD Ot M48.0 61 SPINAL STENOSIS, LUMBAR REGION WITHOUT N 11/12/2018 ANALI PEARCE MD Ot M89.9 DISORDER OF BONE, UNSPECIFIED 11/12/2018 ANALI PEARCE MD Ot N28.1 CYST OF KIDNEY, ACQUIRED 11/14/2018 ANALI PEARCE MD Ot 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 11/14/2018 ANALI PEARCE MD Ot M48.0 61 SPINAL STENOSIS, LUMBAR REGION WITHOUT N 11/14/2018 ANALI PEARCE MD Ot M89.9 DISORDER OF BONE, UNSPECIFIED 11/14/2018 ANALI PEARCE MD Ot N28.1 CYST OF KIDNEY, ACQUIRED 06/06/2019 SUREKHA, GERARDO A F M53.3 Sacrococcygeal disorders, not elsewhere classified 06/06/2019 SUREKHA, GERARDO A F M54.2 Cervicalgia 06/06/2019 SUREKHA, GERARDO A F M62.8 38 Other muscle spasm 10/30/2019 SYLVESTER SAHNI APRN Ot I10 ESSENTIAL (PRIMARY) HYPERTENSION 10/30/2019 SYLVESTER SAHNI APRN Ot M17 .0 BILATERAL PRIMARY OSTEOARTHRITIS OF KNEE 10/30/2019 SAHNI, PETER J 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 Ot M25.561 PAIN IN RIGHT KNEE 10/30/2019 SYLVESTER SAHNI 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 Ot Z82.49 FAMILY HX OF ISCHEM HEART DIS AND OTH DI 10/30/2019 RAMSES WIGGINS, ANALI Callejas Ot N28.1 CYST OF KIDNEY, ACQUIRED 10/30/2019 RAMSES WIGGINS, ANALI Callejas Ot N28.1 CYST OF KIDNEY, ACQUIRED 10/30/2019 RAMSES WIGGINS, ANALI Callejas Ot K76.0 FATTY (CHANGE OF) LIVER, NOT ELSEWHERE C 10/30/2019 RAMSES WIGGINS, ANALI Callejas Ot N28.1 CYST OF KIDNEY, ACQUIRED 10/30/2019 RAMSES WIGGINS, ANALI Callejas Ot 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 10/30/2019 RAMSES WIGGINS, ANALI Callejas Ot M48.0 61 SPINAL STENOSIS, LUMBAR REGION WITHOUT N 10/30/2019 RAMSES WIGGINS, ANALI Callejas Ot M89.9 DISORDER OF BONE, UNSPECIFIED 10/30/2019 ANALI PEARCE MD Ot N28.1 CYST OF KIDNEY, ACQUIRED 11/02/2019 SYLVESTER SAHNI 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 Ot I10 ESSENTIAL (PRIMARY) HYPERTENSION 11/02/2019 SYLVESTER SAHNI 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 Ot M17 .0 BILATERAL PRIMARY OSTEOARTHRITIS OF KNEE 11/02/2019 SYLVESTER SAHNI APRN Ot M25.561 PAIN IN RIGHT KNEE 11/02/2019 SYLVESTER SAHNI APRN Ot Z82.49 FAMILY HX OF ISCHEM HEART DIS AND OTH DI 11/05/2019 SYLVESTER SAHNI APRN Ot I10 ESSENTIAL (PRIMARY) HYPERTENSION 11/05/2019 SYLVESTER SAHNI 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 Ot M17 .0 BILATERAL PRIMARY OSTEOARTHRITIS OF KNEE 11/05/2019 SYLVESTER SAHNI APRN Ot M25.561 PAIN IN RIGHT KNEE 11/05/2019 SYLVESTER SAHNI 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 Ot Z82.49 FAMILY HX OF ISCHEM HEART DIS AND OTH DI Procedures Code Description Performed By Per formed On 04 OTHE R SKIN SUBQ I D 07/08/2013 [...] culture - 08/25/17 20:45 Bacterial urine culture [id number] [facility] Bacterial susceptibility panel - 8 20:45 Gentamicin [...] susceptibility test by minimum inhibitory concentration - [facility] [id number] - 12/20/17 08:41 Serum or plasma urea nitrogen measurement (mass/volume ) 11 mg/dL 7-18 Serum or plasma creatinine measurement (mass/volume) 0.72 mg/dL 0.60-1.30 Serum or plasma urea nitrogen/creatinine mass ratio 15 NRG Serum or plasma creatinine measurement w ith calculation of estimated glomerular filtration rate > NRG Encounters ACCT No. Visit Date/Time Discharge Status Pt. Type Provider Facility Loc./Unit Complaint [id number] 06/06/2019 15:04:00 06/06/2019 16: 20:00 DIS Emergency GERARDO IRBY Júnior [facility] ED [id number] 10/30/2019 12:57:00 020 14:31:00 DIS Emergency SYLVESTER SAHNI 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 [facility] ER KNEE PAIN [id number] 09/26/2018 08:32:00 019 23:59:59 CLS Outpatient ANALI PEARCE MD [facility] RAD RT COMPLEX RENAL CYST [id number] 03/28/2018 08:05:00 018 23:59:59 CLS Outpatient ANALI PEARCE MD [facility] RAD RT COMPLEX RENAL CYST [id number] 12/20/2017 08:28:00 018 23:59:59 CLS Outpatient ANALI PEARCE MD [facility] RAD RV COMPLEX URAL CYST [id number] 09/06/2017 08:30:00 018 23:59:59 CLS Outpatient ANALI PEARCE MD [facility] RAD RT RENAL CYST [id number] 08/25/2017 20:00:00 018 22:21:00 DIS Emergency BEN BENNETT MD [facility] ER PAINFUL URINATING [id number] 06/14/2014 11:10:00 015 14:00:00 DIS Emergency SYLVESTER SAHNI APRN [facility] ER ABD PAIN/DIARRHEA [id number] 07/17/2013 15:57:00 014 08:57:00 DIS Outpatient BRUCE WIGGINS, LISBETH Jon [facility] WOUNDCARE SORE ARM [id number] 07/18/2013 09:06:00 014 10:50:00 DIS Emergency YOHANA IGNACIO MD [facility] ER RIGHT ARM CELLU LITIS [id number] 07/04/2013 11:30:00 014 17:06:00 DIS Inpatient BRUCE WIGGINS, LISBETH Jon [facility] SURGICAL CELLULITIS [id number] 01/31/2013 12:57:00 013 23:59:59 CLS Outpatient [id number] 05/01/2011 21:25:00 Document Registration
== END 2019-12-22 21:52 | disposition home or self-care (01) ==
LOC: EDUNIT# 19:13 → ER 19:15
DX: N39.0 Urinary tract infection, site not specified (principal); I10 Essential (primary) hypertension; Z82.49 Family history of ischemic heart disease and other diseases of the circulatory system
CPT/HCPCS: 36415; 80053; 81000; 82150; 83690; 85007; 85027; 87077; 87088; 87186

== ENCOUNTER 2021-02-18 18:44 | Emergency (ER) | payer SELFPAY ==
[~2021-02-18 18:44] MED LIST changes: +CIPR-225 PO; -SULF1TAB35 PO
[2021-02-18] MEDS ORDERED: FAMOTIDINE 20 MG (PEPCID) TABLET PO STA (18:53)
[2021-02-18 18:59] LABS: BASOPHILS % (AUTO) 0 % (0-10); EOSINOPHILS # (AUTO) 0.2 10^3/uL (0.0-0.3); EOSINOPHILS % (AUTO) 1 % (0-10); HEMATOCRIT 48 % (40-54); HEMOGLOBIN 16.3 g/dL (13.3-17.7); LYMPHOCYTES # (AUTO) 2.4 10^3/uL (1.0-4.0); LYMPHOCYTES % (AUTO) 16 % (12-44); MEAN CORPUSCULAR HEMOGLOBIN 30 pg (25-34); MEAN CORPUSCULAR HGB CONC 34 g/dL (32-36); MEAN CORPUSCULAR VOLUME 87 fL (80-99); MEAN PLATELET VOLUME 10.8 fL (9.0-12.2); MONOCYTES # (AUTO) 1.5 10^3/uL (0.0-1.0); MONOCYTES % (AUTO) 10 % (0-12); NEUTROPHILS # (AUTO) 10.6 10^3/uL (1.8-7.8); NEUTROPHILS % (AUTO) 71 % (42-75); PLATELET COUNT 315 10^3/uL (130-400); WHITE BLOOD COUNT 14.8 10^3/uL (4.3-11.0)
--- NOTE | 2021-02-18 18:59 | ED Abdominal Pain ---
General Chief Complaint: Abdominal/GI Problems Stated Complaint: ABD PAIN Source of Information: Patient Exam Limitations: No Limitations History of Present Illness Date Seen by Provider: Feb 18, 2021 Time Seen by Provider: 18:49 Initial Comments Patient presents ER by private conveyance from home with chief complaint about a week of waxing and waning epigastric abdominal pain. It is sometimes improved with eating. Not worsened by lying flat. He had a bowel movement about an hour prior to arrival which was normal, formed. No blood in the stool. No nausea or vomiting. Does not change his pain. Last time he ate was at noon. He has not tried any antacids Pepto-Bismol etc. No fevers or chills. No history of heart disease. He does take medications for blood pressure and cholesterol which do not seem to change his symptoms. He is seen at [facility] by Melita Pardo. No history of abdominal surgeries. He does not drink alcohol nor does have a history of pancreatitis. Never had a colonoscopy or EGD. Rates his pain as a 7 out of 10. Allergies and Home Medications Allergies Coded Allergies: No Known Drug Allergies (Unverified , 10/27/09) Patient Home Medication List Home Medication List Reviewed: Yes Ciprofloxacin HCl (Cipro) 500 Mg Tablet, 500 MG PO BID Prescribed by: FABIAN LANDAVERDE on 12/22/19 2145 Hctz/Lisinopril (Lisinopril-Hctz 20-25MG Tab) 1 Tab Tablet, 1 TAB PO DAILY Prescribed by: ANTHONY BURCIAGA on 07/04/13 1436 Hydrocodone Bit/Acetaminophen (Hydrocodone-Apap 10-500 Tablet) 1 Each Tablet, 1- 2 EACH PO Q4H PRN for PAIN Prescribed by: RAFAEL DOBBS on 07/10/13 0855 Hydrocodone/Acetaminophen (Hydrocodon-Acetamin 7.5-325/15) 1 Each Tablet, 1-2 EACH PO Q6H PRN for PAIN Prescribed by: YOHANA IGNACIO on 07/18/13 1046 Lactobacillus Rhamnosus (Culturelle) 1 Cap Capsule, 1 CAP PO BID Prescribed by: RAFAEL DOBBS on 07/10/13 0855 Meloxicam (Meloxicam) 7.5 Mg Tablet, 7.5 MG PO DAILY Prescribed by: SYLVESTER SAHNI on 10/30/19 1426 [place] 3 Polyunsat Fatty Acids (Fish Oil) 1,000 Mg Cap, 2,000 MG PO BID Prescribed by: ANTHONY BURCIAGA on 07/04/13 1436 Ondansetron Hcl (Zofran Oral Dissolve) 4 Mg Tab, 4 MG SL Q4H PRN for NAUSEA/VOMITING Prescribed by: SYLVESTER SAHNI on 06/14/14 1259 Sulfamethoxazole/Trimethoprim (Bactrim Ds Tablet) 1 Each Tablet, 1 EACH PO BID Prescribed by: BEN BENNETT on 08/25/17 2207 Trimethoprim/Sulfamethoxazole (Bactrim Ds) 1 Ea Tablet, 1 EA PO BID Prescribed by: YOHANA IGNACIO on 07/18/13 1046 Trimethoprim/Sulfamethoxazole (Bactrim DS) 1 Ea Tablet, 1 EA PO BID Prescribed by: SYLVESTER SAHNI on 06/14/14 1307 Review of Systems Review of Systems Constitutional: No chills, No fever EENTM: No Blurred Vision, No Double Vision Respiratory: Denies Cough, Denies Shortness of Air Cardiovascular: Denies Chest Pain, Denies Lightheadedness Gastrointestinal: Denies Constipated, Denies Diarrhea, Denies Nausea, Denies Other Genitourinary: Denies Burning, Denies Discharge Musculoskeletal: No back pain, No gout All Other Systems Reviewed Negative Unless Noted: Yes Past Xoyybsc-Ruasvf-Oqfurv Hx Patient Social History Tobacco Use?: No Use of E-Cig and/or Vaping dev: No Substance use?: No Alcohol Use?: No Immunizations Up To Date Tetanus Booster (TDap): Unknown Seasonal Allergies Seasonal Allergies: No Past Medical History Surgeries: Yes (cyst removal right arm) Respiratory: No Cardiac: Yes High Cholesterol, Hypertension Neurological: No Genitourinary: No Gastrointestinal: No Musculoskeletal: No Endocrine: No HEENT: No Cancer: No Psychosocial: No Integumentary: No Blood Disorders: No Family Medical History Family history: Hypertension 09 BROTHER 09 SISTER Physical Exam Vital Signs Vital Signs - First Documented 02/18/21 18:47 Temp 36.4 Pulse 99 Resp 18 B/P (MAP) 155/105 (122) Pulse Ox 96 O2 Delivery Room Air Capillary Refill : Height/Weight/BMI Height: 5'7.00" Weight: 200lbs. oz. 90.592085sh; 32.00 BMI Method:Stated General Appearance: WD/WN, mild distress HEENT: PERRL/EOMI, pharynx normal Neck: full range of motion, normal inspection Respiratory: chest non-tender, no respiratory distress, no accessory muscle use Cardiovascular: normal peripheral pulses, regular rate, rhythm Peripheral Pulses: 2+ Radial Pulses (R), 2+ Radial Pulses (L) Gastrointestinal: normal bowel sounds, soft, tenderness (Mild epigastric tenderness without right upper quadrant tenderness or Cuenca sign, McBurney's point tenderness, rebound tenderness, Rovsing sign or psoas sign.) Extremities: normal range of motion, normal capillary refill Neurologic/Psychiatric: alert, normal mood/affect, oriented x 3 Skin: normal color, warm/dry Progress/Results/Core Measures Results/Orders Lab Results Laboratory Tests Test 02/18/21 18:53 Range/Units White Blood Count 14.8 H 4.3-11.0 10^3/uL Red Blood Count 5.51 4.30-5.52 10^6/uL Hemoglobin 16.3 13.3-17.7 g/dL Hematocrit 48 40-54 % Mean Corpuscular Volume 87 80-99 fL Mean Corpuscular Hemoglobin 30 25-34 pg Mean Corpuscular Hemoglobin Concent 34 32-36 g/dL Red Cell Distribution Width 13.2 10.0-14.5 % Platelet Count 315 130-400 10^3/uL Mean Platelet Volume 10.8 9.0-12.2 fL Immature Granulocyte % (Auto) 1 % Neutrophils (%) (Auto) 71 42-75 % Lymphocytes (%) (Auto) 16 12-44 % Monocytes (%) (Auto) 10 0-12 % Eosinophils (%) (Auto) 1 0-10 % Basophils (%) (Auto) 0 0-10 % Neutrophils # (Auto) 10.6 H 1.8-7.8 10^3/uL Lymphocytes # (Auto) 2.4 1.0-4.0 10^3/uL Monocytes # (Auto) 1.5 H 0.0-1.0 10^3/uL Eosinophils # (Auto) 0.2 0.0-0.3 10^3/uL Basophils # (Auto) 0.0 0.0-0.1 10^3/uL Immature Granulocyte # (Auto) 0.1 0.0-0.1 10^3/uL Neutrophils % (Manual) 65 % Lymphocytes % (Manual) 19 % Monocytes % (Manual) 15 % Eosinophils % (Manual) 1 % Basophils % (Manual) 0 % Band Neutrophils 0 % Blood Morphology Comment NORMAL Sodium Level 140 135-145 MMOL/L Potassium Level 3.7 3.6-5.0 MMOL/L Chloride Level 103 98-107 MMOL/L Carbon Dioxide Level 24 21-32 MMOL/L Anion Gap 13 5-14 MMOL/L Blood Urea Nitrogen 22 H 7-18 MG/DL Creatinine 0.81 0.60-1.30 MG/DL Estimat Glomerular Filtration Rate 97 BUN/Creatinine Ratio 27 Glucose Level 108 H 70-105 MG/DL Calcium Level 9.3 8.5-10.1 MG/DL Corrected Calcium 9.3 8.5-10.1 MG/DL Total Bilirubin 0.5 0.1-1.0 MG/DL Aspartate Amino Transf (AST/SGOT) 106 H 5-34 U/L Alanine Aminotransferase (ALT/SGPT) 72 H 0-55 U/L Alkaline Phosphatase 92 40-136 U/L C-Reactive Protein High Sensitivity 0.60 H 0.00-0.50 MG/DL Total Protein 6.8 6.4-8.2 GM/DL Albumin 4.0 3.2-4.5 GM/DL Lipase 37 8-78 U/L My Orders Orders - BEN BENNETT Cbc With Automated Diff (02/18/21 18:53) Comprehensive Metabolic Panel (02/18/21 18:53) Hs C Reactive Protein (02/18/21 18:53) Lipase (02/18/21 18:53) Lidocaine 2% Viscous 15 Ml (Xylocaine Vi (02/18/21 19:00) Famotidine Tablet (Pepcid Tablet) (02/18/21 18:53) Antacid Suspension (Mylanta Suspension (02/18/21 19:00) Manual Differential (02/18/21 18:53) Medications Given in ED Current Medications Medications Dose Ordered Sig/Sue Route Start Time Stop Time Status Last Admin Dose Admin Al Hydrox/Mg Hydrox/Simethicone 30 ml ONCE ONCE PO 02/18/21 19:00 02/18/21 19:01 DC 02/18/21 18:59 30 ML Lidocaine HCl 15 ml ONCE ONCE PO 02/18/21 19:00 02/18/21 19:01 DC 02/18/21 18:59 15 ML Vital Signs/I&O 02/18/21 02/18/21 18:47 19:24 Temp 36.4 Pulse 99 92 Resp 18 18 B/P (MAP) 155/105 (122) 140/97 Pulse Ox 96 96 O2 Delivery Room Air Room Air Progress Progress Note #1: Time: 18:57 Progress Note Suspect GERD. Given a GI cocktail and some Pepcid. We will check a lipase and basic labs to rule out other diagnoses. Progress Note #2: Time: 19:32 Progress Note His pain significantly improved down to a 3 out of 10. He is not on steroids NSAIDs or alcohol. We will put him on Carafate and omeprazole with follow-up with Dr. Garcia in 2 to 4 weeks. Departure Impression Primary Impression: GERD without esophagitis Disposition: HOME, SELF-CARE Condition: Stable Departure-Patient Inst. Decision time for Depature: 19:30 Referrals: [facility] [place] Primary Care Physician ÁLVARO GARCIA MD Patient Instructions: Acid Reflux and GERD in Adults (DC), Gastritis (DC) Add. Discharge Instructions: If the pain comes back then use an antacid such as Pepto-Bismol, Tums, Rolaids, Maalox, Mylanta etc. Omeprazole 20 mg twice a day for the next 30 days. Carafate half an hour before meals and at bedtime for the next 2 weeks. If your symptoms do not improve in the next [address] Garcia and request follow-up appointment and discuss whether EGD, a scope to look at the inside of your stomach will be indicated. Return to the ER for intractable vomiting or severe pain not improved with the medicines listed above. All discharge instructions reviewed with patient and/or family. Voiced understanding. Scripts Sucralfate (Carafate) 1 Gm Tablet 1 GM PO QIDACHS for 14 Days, #56 TAB 0 Refills Prov: BEN BENNETT 02/18/21 Omeprazole (Omeprazole) 20 Mg Capsule. 20 MG PO BID for 30 Days, #60 CAP 0 Refills Prov: BEN BENNETT 02/18/21 Copy Copies To 1: ÁLVARO GARCIA MD, TITUS J Feb 18, 2021 18:59
[2021-02-18] MEDS ORDERED: LIDOCAINE 2% VISCOUS 15 ML UDC PO ONE (19:00)
[2021-02-18] MEDS ORDERED: ANTACID SUSP 30 ML UDC (MYLANTA) PO ONE (19:00)
[2021-02-18 19:12] LABS: BAND NEUTROPHILS 0 %; BASOPHILS % (MANUAL) 0 %; EOSINOPHILS % (MANUAL) 1 %; LYMPHOCYTES % (MANUAL) 19 %; MONOCYTES % (MANUAL) 15 %; NEUTROPHILS % (MANUAL) 65 %; POTASSIUM 3.7 MMOL/L (3.6-5.0); RBC MORPH NORMAL
[2021-02-18 19:13] LABS: CALCIUM 9.3 MG/DL (8.5-10.1)
[2021-02-18 19:15] LABS: TOTAL PROTEIN 6.8 GM/DL (6.4-8.2)
[2021-02-18 19:16] LABS: BILIRUBIN,TOTAL 0.5 MG/DL (0.1-1.0)
[2021-02-18 19:18] LABS: CREATININE SERUM 0.81 MG/DL (0.60-1.30)
[2021-02-18] MEDS ORDERED: OMEP20CA18 PO (19:34)
[2021-02-18] MEDS ORDERED: SUCR1TAB36 PO (19:34)
[2021-02-18 19:36] VITALS: BP 152/90
== END 2021-02-18 19:40 | disposition home or self-care (01) ==
LOC: EDUNIT# 18:44 → ER 18:46
DX: K21.9 Gastro-esophageal reflux disease without esophagitis (principal); I10 Essential (primary) hypertension; Z79.899 Other long term (current) drug therapy
CPT/HCPCS: 36415; 80053; 83690; 85007; 85027; 86141

== ENCOUNTER 2021-05-12 09:11 | Emergency (ER) | payer SELFPAY ==
[~2021-05-12] VITALS: Ht 165 cm; Wt 90.9 kg
[~2021-05-12 09:11] MED LIST changes: +OMEP20CA18 PO; +SUCR1TAB36 PO
[2021-05-12 10:31] LABS: BASOPHILS % (AUTO) 0 % (0-10); EOSINOPHILS # (AUTO) 0.1 10^3/uL (0.0-0.3); EOSINOPHILS % (AUTO) 1 % (0-10); HEMATOCRIT 43 % (40-54); HEMOGLOBIN 14.7 g/dL (13.3-17.7); LYMPHOCYTES % (AUTO) 21 % (12-44); MEAN CORPUSCULAR HEMOGLOBIN 30 pg (25-34); MEAN CORPUSCULAR HGB CONC 34 g/dL (32-36); MEAN CORPUSCULAR VOLUME 88 fL (80-99); MONOCYTES # (AUTO) 1.1 10^3/uL (0.0-1.0); MONOCYTES % (AUTO) 11 % (0-12); NEUTROPHILS # (AUTO) 6.2 10^3/uL (1.8-7.8); NEUTROPHILS % (AUTO) 66 % (42-75); PLATELET COUNT 238 10^3/uL (130-400); WHITE BLOOD COUNT 9.5 10^3/uL (4.3-11.0)
--- NOTE | 2021-05-12 10:32 | ED Abdominal Pain ---
General Chief Complaint: Abdominal/GI Problems Stated Complaint: ABD/BACK PAIN SEEN [id number] Nursing Triage Note: AMB TO ROOM REPORTS WAS SEEN IN FOR R UPPER QUAD PAIN WAS TOLD TO COME BACK FOR FOLLOW UP IF NOT ANY BETER REPORTS HE IS NOT BETTER. HAS INTERMITTEN R UPPER QUAD PAIN WITHRADIATON TO BACK. Source of Information: Patient, Old Records Exam Limitations: No Limitations (PAOLA WARREN) History of Present Illness Date Seen by Provider: May 12, 2021 Time Seen by Provider: 09:30 Initial Comments 60 yo male with hx HTN and hypercholesterolemia presents with epigastric pain near the gastroesophageal junction that sometimes radiates to his back. He reports this as a continuation of sx from a January visit to [facility], where he was prescribed Carafate and omeprazole for sx relief. Discharge instructions included f/u with Dr. Garcia for an EGD if symptoms did not resolve in two weeks. Pt confirms that carafate and omeprazole helped a little, but did not resolve the issue. Pt did not f/u with Dr. Garcia, and reported to the ER today when the pain did not brown. Pain is currently 6/10, and continues to wax and wane. Pt states the pain began in December. Pt reports no nausea, vomiting, burping, or diarrhea. His bowels move at least once/day. He reports limited alcohol use (maybe every 2-3 months). Pt reports that eating/drinking may sometimes worsen sx, but no specific food or drink that irritates the condition. Pt had a bit of fruit and coffee this morning. Timing/Duration: Intermittent (since December) Severity/Quality: Moderate Location: Epigastric Radiation: Back Modifying Factors: Improves With Antacids; Worsens With Eating, Worsens With Palpation Associated Symptoms: No Chest Pain, No Headache, No Nausea/Vomiting, No Shortness of Air (PAOLA WARREN) Allergies and Home Medications Allergies Coded Allergies: No Known Drug Allergies (Unverified , 10/27/09) Patient Home Medication List Ciprofloxacin HCl (Cipro) 500 Mg Tablet, 500 MG PO BID Prescribed by: FABIAN LANDAVERDE on 12/22/19 8952 Hctz/Lisinopril (Lisinopril-Hctz 20-25MG Tab) 1 Tab Tablet, 1 TAB PO DAILY Prescribed by: ANTHONY BURCIAGA on 07/04/13 1436 Hydrocodone Bit/Acetaminophen (Hydrocodone-Apap 10-500 Tablet) 1 Each Tablet, 1- 2 EACH PO Q4H PRN for PAIN Prescribed by: RAFAEL DOBBS on 07/10/13 0855 Hydrocodone/Acetaminophen (Hydrocodon-Acetamin 7.5-325/15) 1 Each Tablet, 1-2 EACH PO Q6H PRN for PAIN Prescribed by: YOHANA IGNACIO on 07/18/13 1046 Lactobacillus Rhamnosus (Culturelle) 1 Cap Capsule, 1 CAP PO BID Prescribed by: RAFAEL DOBBS on 07/10/13 0855 Meloxicam (Meloxicam) 7.5 Mg Tablet, 7.5 MG PO DAILY Prescribed by: SYLVESTER SAHNI on 10/30/19 1426 [place] 3 Polyunsat Fatty Acids (Fish Oil) 1,000 Mg Cap, 2,000 MG PO BID Prescribed by: ANTHONY BURCIAGA on 07/04/13 1436 Omeprazole (Omeprazole) 20 Mg Capsule.dr, 20 MG PO BID Prescribed by: BEN BENNETT on 02/18/21 193 Omeprazole (Omeprazole) 20 Mg Tablet.dr, 20 MG PO BID Prescribed by: MAYO MONTANA on 05/12/21 1201 Ondansetron Hcl (Zofran Oral Dissolve) 4 Mg Tab, 4 MG SL Q4H PRN for NAUSEA/VOMITING Prescribed by: SYLVESTER SAHNI on 06/14/14 1259 Sucralfate (Carafate) 1 Gm Tablet, 1 GM PO QIDACHS Prescribed by: BEN BENNETT on 02/18/21 193 Sucralfate (Carafate) 1 Gm Tablet, 1 GM PO QID Prescribed by: MAYO MONTANA on 05/12/21 1201 Sulfamethoxazole/Trimethoprim (Bactrim Ds Tablet) 1 Each Tablet, 1 EACH PO BID Prescribed by: BEN BENNETT on 08/25/17 2207 Trimethoprim/Sulfamethoxazole (Bactrim Ds) 1 Ea Tablet, 1 EA PO BID Prescribed by: YOHANA IGNACIO on 07/18/13 1046 Trimethoprim/Sulfamethoxazole (Bactrim DS) 1 Ea Tablet, 1 EA PO BID Prescribed by: SYLVESTER SAHNI on 06/14/14 1307 Review of Systems Review of Systems Constitutional: no symptoms reported Respiratory: Denies Shortness of Air Cardiovascular: Denies Chest Pain Gastrointestinal: Abdominal Pain; Denies Diarrhea, Denies Nausea, Denies Vomiting Musculoskeletal: back pain (referred pain to back) (PAOLA WARREN) Past Ylxwmmi-Hqshjt-Igblto Hx Patient Social History Tobacco Use?: No (quit 18-19 years ago) Substance use?: No Alcohol Use?: Yes Alcohol Frequency: Rarely (every 2-3 months) (PAOLA WARREN) Immunizations Up To Date Tetanus Booster (TDap): Unknown (PAOLA WARREN) Seasonal Allergies Seasonal Allergies: No (PAOLA WARREN) Past Medical History Surgeries: Yes (cyst removal right arm) Respiratory: No Cardiac: Yes High Cholesterol, Hypertension Neurological: No Genitourinary: No Gastrointestinal: No Musculoskeletal: No Endocrine: No HEENT: No Cancer: No Psychosocial: No Integumentary: No Blood Disorders: No (PAOAL WARREN) Family Medical History Family history: Hypertension 09 BROTHER 09 SISTER No Pertinent Family Hx (reports no chronic conditions run in family) (PAOLA WARREN) Physical Exam Vital Signs Vital Signs - First Documented 05/12/21 09:17 Temp 36.1 Pulse 88 Resp 18 B/P (MAP) 172/116 (134) Pulse Ox 97 O2 Delivery Room Air (MAYO BURKETT MD) Vital Signs Capillary Refill : Less Than 3 Seconds (PAOLA WARREN) Height/Weight/BMI Height: 5'7.00" Weight: 200lbs. oz. [id number]; 33.00 BMI Method:Stated General Appearance: WD/WN, moderate distress Respiratory: lungs clear, normal breath sounds, no respiratory distress, no acc essory muscle use Cardiovascular: regular rate, rhythm, no gallop Gastrointestinal: normal bowel sounds, soft, no pulsatile mass, tenderness (epigastric; at GEJ only; neg [place] and neg [place]) Neurologic/Psychiatric: alert, normal mood/affect Skin: normal color (PAOLA WARREN) Procedures/Interventions Ultrasound: normal (upper probable fatty liver reported; improved since last imaging) (PAOLA WARREN) Progress/Results/Core Measures Results/Orders Lab Results Laboratory Tests Test 05/12/21 10:21 Range/Units White Blood Count 9.5 4.3-11.0 10^3/uL Red Blood Count 4.90 4.30-5.52 10^6/uL Hemoglobin 14.7 13.3-17.7 g/dL Hematocrit 43 40-54 % Mean Corpuscular Volume 88 80-99 fL Mean Corpuscular Hemoglobin 30 25-34 pg Mean Corpuscular Hemoglobin Concent 34 32-36 g/dL Red Cell Distribution Width 12.9 10.0-14.5 % Platelet Count 238 130-400 10^3/uL Mean Platelet Volume 12.0 9.0-12.2 fL Immature Granulocyte % (Auto) 1 % Neutrophils (%) (Auto) 66 42-75 % Lymphocytes (%) (Auto) 21 12-44 % Monocytes (%) (Auto) 11 0-12 % Eosinophils (%) (Auto) 1 0-10 % Basophils (%) (Auto) 0 0-10 % Neutrophils # (Auto) 6.2 1.8-7.8 10^3/uL Lymphocytes # (Auto) 2.0 1.0-4.0 10^3/uL Monocytes # (Auto) 1.1 H 0.0-1.0 10^3/uL Eosinophils # (Auto) 0.1 0.0-0.3 10^3/uL Basophils # (Auto) 0.0 0.0-0.1 10^3/uL Immature Granulocyte # (Auto) 0.1 0.0-0.1 10^3/uL Sodium Level 141 135-145 MMOL/L Potassium Level 3.3 L 3.6-5.0 MMOL/L Chloride Level 104 98-107 MMOL/L Carbon Dioxide Level 27 21-32 MMOL/L Anion Gap 10 5-14 MMOL/L Blood Urea Nitrogen 14 7-18 MG/DL Creatinine 0.70 0.60-1.30 MG/DL Estimat Glomerular Filtration Rate 114 BUN/Creatinine Ratio 20 Glucose Level 91 70-105 MG/DL Calcium Level 8.7 8.5-10.1 MG/DL Corrected Calcium 8.9 8.5-10.1 MG/DL Total Bilirubin 0.7 0.1-1.0 MG/DL Aspartate Amino Transf (AST/SGOT) 35 H 5-34 U/L Alanine Aminotransferase (ALT/SGPT) 33 0-55 U/L Alkaline Phosphatase 71 40-136 U/L Total Protein 6.2 L 6.4-8.2 GM/DL Albumin 3.7 3.2-4.5 GM/DL Lipase 25 8-78 U/L (MAYO BURKETT MD) My Orders Orders - MAYO BURKETT MD Cbc With Automated Diff (05/12/21 10:08) Comprehensive Metabolic Panel (05/12/21 10:08) Lipase (05/12/21 10:08) Ed Iv/Invasive Line Start (05/12/21 10:08) Us Gallbladder 48[address] (05/12/21 10:08) Lidocaine 2% Viscous 15 Ml (Xylocaine Vi (05/12/21 11:00) Antacid Suspension (Mylanta Suspension (05/12/21 11:00) Famotidine Injection (Pepcid Injection) (05/12/21 10:53) Ondansetron Injection (Zofran Injectio (05/12/21 11:00) (MAYO BURKETT MD) Medications Given in ED Current Medications Medications Dose Ordered Sig/Sue Route Start Time Stop Time Status Last Admin Dose Admin Al Hydrox/Mg Hydrox/Simethicone 30 ml ONCE ONCE PO 05/12/21 11:00 05/12/21 11:01 DC 05/12/21 11:07 30 ML Lidocaine HCl 15 ml ONCE ONCE PO 05/12/21 11:00 05/12/21 11:01 DC 05/12/21 11:08 15 ML Ondansetron HCl 4 mg ONCE ONCE IVP 05/12/21 11:00 05/12/21 11:01 DC 05/12/21 11:05 4 MG (MAYO BURKETT MD) Vital Signs/I&O 05/12/21 09:17 Temp 36.1 Pulse 88 Resp 18 B/P (MAP) 172/116 (134) Pulse Ox 97 O2 Delivery Room Air (MAYO BURKETT MD) Blood Pressure Mean: 134 Departure Impression Primary Impression: Epigastric pain Disposition: 01 HOME, SELF-CARE Condition: Improved Departure-Patient Inst. Decision time for Depature: 11:52 (MAYO BURKETT MD) Referrals: ALBERTO CEDEÑO BRETT D DO GELLENDER, RICHARD A DO (PCP/Family) Primary Care Physician ÁLVARO GARCIA MD Patient Instructions: Acid Reflux and Gastroesophageal Reflux Disease in Adults, Gastritis, Severe Abdominal Pain, Adult (DC) Add. Discharge Instructions: Restart the medications as prescribed. Continue these medications until you are seen by a surgeon. Contact a surgeon as soon as possible to arrange endoscopy (scoping of the stomach and esophagus with a camera). This could also be arranged by Dr. Buck's office. Dr. Cedeño and Dr. Masterson are both surgeons with [facility] and your financial assistance may be helpful if you choose to see one of them. See contact information below. Complete the financial market dealer paperwork to soon as possible. Avoid the following: Eating large meals, eating close to bedtime, caffeine, carbonation, chocolate, citrus fruits and juices, tomato products, mints, fatty or greasy foods, spicy foods, NSAID medications such as ibuprofen or naproxen, tobacco, alcohol, or anything else you know irritates your stomach. Elevating the head of your bed when you sleep may also be helpful. This can be accomplished by using several pillows or placing blocks under the feet at the head of your bed. Call with questions or concerns. Return to the ER if you have worsening symptoms despite these treatments. All discharge instructions reviewed with patient and/or family. Voiced understanding. Scripts Sucralfate (Carafate) 1 Gm Tablet 1 GM PO QID, #120 TAB 2 Refills Works best if crushed and mixed or dissolved into 5-10 mL water to make slurry. Take 30 minutes before meals and bedtime. Prov: MAYO BURKETT MD 05/12/21 Omeprazole (Omeprazole) 20 Mg Tablet. 20 MG PO BID, #60 TAB 2 Refills Prov: MAYO BURKETT MD 05/12/21 Copy Copies To 1: CORRINA BUCK ANNE May 12, 2021 10:32 MAYO BURKETT MD May 12, 2021 11:56
[2021-05-12 10:39] LABS: ALBUMIN 3.7 GM/DL (3.2-4.5); POTASSIUM 3.3 MMOL/L (3.6-5.0)
[2021-05-12 10:41] LABS: CALCIUM 8.7 MG/DL (8.5-10.1)
[2021-05-12 10:42] LABS: TOTAL PROTEIN 6.2 GM/DL (6.4-8.2)
[2021-05-12 10:44] LABS: BILIRUBIN,TOTAL 0.7 MG/DL (0.1-1.0)
[2021-05-12 10:45] LABS: CREATININE SERUM 0.7 MG/DL (0.60-1.30)
[2021-05-12] MEDS ORDERED: FAMOTIDINE 20MG/2ML IV (PEPCID) IV STA (10:53)
[2021-05-12] MEDS ORDERED: ANTACID SUSP 30 ML UDC (MYLANTA) PO ONE (11:00)
[2021-05-12] MEDS ORDERED: LIDOCAINE 2% VISCOUS 15 ML UDC PO ONE (11:00)
[2021-05-12] MEDS ORDERED: ONDANSETRON 4 MG/2 ML (SDV) Z0FRAN IVP ONE (11:00)
--- NOTE | 2021-05-12 11:10 | Diagnostic Imaging Report ---
PROCEDURE: US Gallbladder. TECHNIQUE: Multiple real-time grayscale images were obtained over the right upper quadrant in various projections. INDICATION: Epigastric pain Study correlated with the CT abdomen and pelvis 09/26/2018. FINDINGS: Liver is echodense consistent with its fatty infiltration however when correlated with previous CT the degree of fatty infiltration is likely improved. The gallbladder appeared normal. No stone or sludge. The portal vein patent and showed a normal hepatopetal directional flow. The pancreas could not be visualized much of the aorta and IVC obscured where visualized. Nonaneurysmal. The unobstructed right kidney measured 11.5 cm. No hydronephrosis or renal mass. IMPRESSION: Upper probable fatty liver but improved from prior CT. No biliary abnormality or ascites, unobstructed right kidney. Dictated by: Dictated on workstation # [id number]
[2021-05-12] MEDS ORDERED: SUCR1TAB36 PO (12:01)
[2021-05-12] MEDS ORDERED: OMEP20TA7 PO (12:01)
[2021-05-12 12:16] VITALS: BP 157/104
== END 2021-05-12 12:16 | disposition home or self-care (01) ==
LOC: EDUNIT# 09:11 → ER 09:13
DX: R10.13 Epigastric pain (principal); I10 Essential (primary) hypertension
CPT/HCPCS: 36415; 76705; 80053; 83690; 85025

== ENCOUNTER 2021-06-16 15:06 | Emergency (ER) | payer SELFPAY ==
[~2021-06-16] VITALS: Ht 167.7 cm; Wt 88.5 kg
[~2021-06-16 15:06] MED LIST changes: +OMEP20TA7 PO
[2021-06-16] MEDS ORDERED: KETOROLAC 30 MG/ML VIAL IVP ONE (16:15)
[2021-06-16] MEDS ORDERED: NS IV 1000 ML 1,000 ML IV SCH (16:15)
--- NOTE | 2021-06-16 16:19 | ED Cough/URI ---
General Chief Complaint: COVID19 Suspect/Confirmed Stated Complaint: COVID POSITIVE Nursing Triage Note: PT AMB TO RM 9 WITH DAUGHTER WITH COMPLAINT OF NOT EATING, DRINKING, COUGH, AND CONGESTION. TESTED POSITIVE ON SATURDAY FOR COVID. WITH SYMPTOMS STARTING APPROX 2 WEEKS AGO. Source: patient, family Exam Limitations: language barrier (Ghanaian second language) (BEN BENNETT) History of Present Illness Date Seen by Provider: Jun 16, 2021 Time Seen by Provider: 15:42 Initial Comments Patient to the ER by private conveyance chief complaint that he is having about 2 weeks of COVID-like symptoms cough nausea body aches poor appetite. On Saturday he was diagnosed with COVID at [facility]. He gave him some Zofran which he did not feel helped much. He is not been using any Tylenol, ibuprofen or other medications. No diarrhea or constipation. Patient does not have any lung disease he is not having any chest pain or shortness of air. No hemoptysis. Does get occasional little small episodes of epistaxis. Usually self-limited to a minute or less. Not on blood thinners. He noted some red- tinged urine over the past couple days. He quit smoking many years ago. (BEN BENNETT) Allergies and Home Medications Allergies Coded Allergies: No Known Drug Allergies (Unverified , 10/27/09) Patient Home Medication List Home Medication List Reviewed: Yes (BEN BENNETT) Ciprofloxacin HCl (Cipro) 500 Mg Tablet, 500 MG PO BID Prescribed by: FABIAN LANDAVERDE on 12/22/19 2145 Hctz/Lisinopril (Lisinopril-Hctz 20-25MG Tab) 1 Tab Tablet, 1 TAB PO DAILY Prescribed by: ANTHONY BURCIAGA on 07/04/13 1436 Hydrocodone Bit/Acetaminophen (Hydrocodone-Apap 10-500 Tablet) 1 Each Tablet, 1- 2 EACH PO Q4H PRN for PAIN Prescribed by: RAFAEL DOBBS on 07/10/13 0855 Hydrocodone/Acetaminophen (Hydrocodon-Acetamin 7.5-325/15) 1 Each Tablet, 1-2 EACH PO Q6H PRN for PAIN Prescribed by: YOHANA IGNACIO on 07/18/13 1046 Lactobacillus Rhamnosus (Culturelle) 1 Cap Capsule, 1 CAP PO BID Prescribed by: RAFAEL DOBBS on 07/10/13 0855 Meloxicam (Meloxicam) 7.5 Mg Tablet, 7.5 MG PO DAILY Prescribed by: SYLVESTER SAHNI on 10/30/19 1426 [place] 3 Polyunsat Fatty Acids (Fish Oil) 1,000 Mg Cap, 2,000 MG PO BID Prescribed by: ANTHONY BURCIAGA on 07/04/13 1436 Omeprazole (Omeprazole) 20 Mg Capsule.dr, 20 MG PO BID Prescribed by: BEN BENNETT on 02/18/21 1934 Omeprazole (Omeprazole) 20 Mg Tablet.dr, 20 MG PO BID Prescribed by: MAYO MONTANA on 05/12/21 1201 Ondansetron Hcl (Zofran Oral Dissolve) 4 Mg Tab, 4 MG SL Q4H PRN for NAUSEA/VOMITING Prescribed by: SYLVESTER SAHNI on 06/14/14 1259 Sucralfate (Carafate) 1 Gm Tablet, 1 GM PO QIDACHS Prescribed by: BEN BENNETT on 02/18/21 193 Sucralfate (Carafate) 1 Gm Tablet, 1 GM PO QID Prescribed by: MAYO MONTANA on 05/12/21 1201 Sulfamethoxazole/Trimethoprim (Bactrim Ds Tablet) 1 Each Tablet, 1 EACH PO BID Prescribed by: BEN BENNETT on 08/25/17 2207 Trimethoprim/Sulfamethoxazole (Bactrim Ds) 1 Ea Tablet, 1 EA PO BID Prescribed by: YOHANA IGNACIO on 07/18/13 1046 Trimethoprim/Sulfamethoxazole (Bactrim DS) 1 Ea Tablet, 1 EA PO BID Prescribed by: SYLVESTER SAHNI on 06/14/14 1307 Review of Systems Review of Systems Constitutional: chills, fever, malaise EENTM: ear discharge, hearing loss Respiratory: cough; No phlegm; short of breath; No wheezing Cardiovascular: No chest pain, No edema, No Hx of Intervention, No palpitations Gastrointestinal: No abdominal pain, No constipation, No diarrhea; loss of appetite, nausea, vomiting Genitourinary: No discharge, No dysuria Musculoskeletal: No back pain, No joint pain (BEN BENNETT) All Other Systems Reviewed Negative Unless Noted: Yes (BEN BENNETT) Past Cmthmin-Ipvqtq-Lgttfg Hx Patient Social History Tobacco Use?: No Use of E-Cig and/or Vaping dev: No Substance use?: No Alcohol Use?: No Pt feels they are or have been: No (BEN BENNETT) Immunizations Up To Date Tetanus Booster (TDap): Unknown Influenza Vaccine Up-to-Date: No; Not Current First/Initial COVID19 Vaccinat: NO Second COVID19 Vaccination Rob: NO (BEN BENNETT) Seasonal Allergies Seasonal Allergies: No (BEN BENNETT) Past Medical History Surgeries: Yes (cyst removal right arm) Respiratory: No Cardiac: Yes High Cholesterol, Hypertension Neurological: No Genitourinary: No Gastrointestinal: No Musculoskeletal: No Endocrine: No HEENT: No Cancer: No Psychosocial: No Integumentary: No Blood Disorders: No (BEN BENNETT) Family Medical History Family history: Hypertension 09 BROTHER 09 SISTER No Pertinent Family Hx (BEN BENNETT) Physical Exam Vital Signs - First Documented 06/16/21 15:28 Temp 35.9 Pulse 111 Resp 26 B/P (MAP) 136/91 (106) Pulse Ox 94 O2 Delivery Room Air (SEVERIANO,SARAY K DO) Capillary Refill : Less Than 3 Seconds (BEN BENNETT) Height: 5'7.00" Weight: 200lbs. oz. 90.112173ko; 31.00 BMI Method:Stated General Appearance: WD/WN, mild distress Eyes: Bilateral Eye Normal Inspection, Bilateral Eye PERRL, Bilateral Eye EOMI HEENT: PERRL/EOMI, normal ENT inspection, pharynx normal Neck: full range of motion, supple, normal inspection Respiratory: chest non-tender, no respiratory distress, no accessory muscle use, crackles (Right base); No rhonchi, No wheezing Cardiovascular: normal peripheral pulses, regular rate, rhythm Gastrointestinal: non tender, soft, no organomegaly Neurologic/Psychiatric: alert, normal mood/affect, oriented x 3 Skin: normal color, warm/dry (BEN BENNETT) Progress/Results/Core Measures Suspected Sepsis SIRS Temperature: Pulse: 111 Respiratory Rate: 26 Laboratory Tests 06/16/21 15:39: Blood Pressure 136 /91 Mean: 106 Laboratory Tests 06/16/21 15:39: (BEN BENNETT) Results/Orders Lab Results Laboratory Tests Test 06/16/21 15:39 06/16/21 18:28 Range/Units White Blood Count 5.5 4.3-11.0 10^3/uL Red Blood Count 5.51 4.30-5.52 10^6/uL Hemoglobin 15.9 13.3-17.7 g/dL Hematocrit 46 40-54 % Mean Corpuscular Volume 84 80-99 fL Mean Corpuscular Hemoglobin 29 25-34 pg Mean Corpuscular Hemoglobin Concent 34 32-36 g/dL Red Cell Distribution Width 12.9 10.0-14.5 % Platelet Count 293 130-400 10^3/uL Mean Platelet Volume 10.9 9.0-12.2 fL Immature Granulocyte % (Auto) 1 % Neutrophils (%) (Auto) 58 42-75 % Lymphocytes (%) (Auto) 25 12-44 % Monocytes (%) (Auto) 16 H 0-12 % Eosinophils (%) (Auto) 0 0-10 % Basophils (%) (Auto) 0 0-10 % Neutrophils # (Auto) 3.2 1.8-7.8 X 10^3 Lymphocytes # (Auto) 1.4 1.0-4.0 X 10^3 Monocytes # (Auto) 0.9 0.0-1.0 X 10^3 Eosinophils # (Auto) 0.0 0.0-0.3 10^3/uL Basophils # (Auto) 0.0 0.0-0.1 10^3/uL Immature Granulocyte # (Auto) 0.1 0.0-0.1 10^3/uL Prothrombin Time 14.1 12.2-14.7 SEC INR Comment 1.1 0.8-1.4 Activated Partial Thromboplast Time 33 24-35 SEC D-Dimer 1.89 H 0.00-0.49 UG/ML Sodium Level 131 L 135-145 MMOL/L Potassium Level 3.6 3.6-5.0 MMOL/L Chloride Level 94 L 98-107 MMOL/L Carbon Dioxide Level 26 21-32 MMOL/L Anion Gap 11 5-14 MMOL/L Blood Urea Nitrogen 12 7-18 MG/DL Creatinine 0.76 0.60-1.30 MG/DL Estimat Glomerular Filtration Rate 102 BUN/Creatinine Ratio 16 Glucose Level 107 H 70-105 MG/DL Calcium Level 9.3 8.5-10.1 MG/DL Corrected Calcium 9.5 8.5-10.1 MG/DL Total Bilirubin 0.8 0.1-1.0 MG/DL Aspartate Amino Transf (AST/SGOT) 119 H 5-34 U/L Alanine Aminotransferase (ALT/SGPT) 139 H 0-55 U/L Alkaline Phosphatase 103 40-136 U/L C-Reactive Protein High Sensitivity 1.82 H 0.00-0.50 MG/DL Total Protein 7.1 6.4-8.2 GM/DL Albumin 3.8 3.2-4.5 GM/DL Procalcitonin 0.05 <0.10 NG/ML Urine Color YELLOW Urine Clarity CLEAR Urine pH 7.0 5-9 Urine Specific [place] 1.020 1.016-1.022 Urine Protein TRACE H NEGATIVE Urine Glucose (UA) NEGATIVE NEGATIVE Urine Ketones 1+ H NEGATIVE Urine Nitrite NEGATIVE NEGATIVE Urine Bilirubin 1+ H NEGATIVE Urine Urobilinogen 1.0 < = 1.0 MG/DL Urine Leukocyte Esterase NEGATIVE NEGATIVE Urine RBC (Auto) NEGATIVE NEGATIVE Urine RBC NONE /HPF Urine WBC 0-2 /HPF Urine Squamous Epithelial Cells 0-2 /HPF Urine Crystals NONE /LPF Urine Bacteria TRACE /HPF Urine Casts NONE /LPF Urine Mucus NEGATIVE /LPF Urine Culture Indicated NO (SEVERIANO,SARAY K DO) Medications Given in ED Current Medications Medications Dose Ordered Sig/Sue Route Start Time Stop Time Status Last Admin Dose Admin Ketorolac Tromethamine 30 mg ONCE ONCE IVP 06/16/21 16:15 06/16/21 16:16 DC 06/16/21 16:33 30 MG Ondansetron HCl 8 mg ONCE ONCE IVP 06/16/21 16:30 06/16/21 16:31 DC 06/16/21 16:33 8 MG (SEVERIANO,SARAY K DO) Vital Signs/I&O 06/16/21 15:28 Temp 35.9 Pulse 111 Resp 26 B/P (MAP) 136/91 (106) Pulse Ox 94 O2 Delivery Room Air (SEVERIANO,SARAY K DO) Vital Signs/I&O Capillary Refill : Less Than 3 Seconds (BEN BENNETT) Blood Pressure Mean: 106 Progress Note : Time: 16:21 Progress Note A liter of fluids Toradol Zofran check some labs including a urinalysis. Because of the red tinge urine and epistaxis we will check a PT/INR PTT. Chest x-ray for his right lower lobe crackles. CRP, procalcitonin and D-dimer for radiation of COVID disease. He has little tachycardia but clinically appears to be doing okay with COVID-19. (BEN BENNETT) Progress Note : Progress Note ASSUMED CARE OF PT AT SHIFT CHANGE, UA PENDING VITALS STABLE AND PT HAS NO COMPLAINTS AT THIS TIME (SARAY العلي DO) Departure Impression Primary Impression: COVID-19 Additional Impressions: Dehydration Elevated liver enzymes Disposition: HOME, SELF-CARE Condition: Stable Departure-Patient Inst. Decision time for Depature: 19:00 (SARAY العلي DO) Referrals: CORRINA BUCK DO (PCP/Family) Primary Care Physician Patient Instructions: COVID-19 (DC), Liver Function Test Add. Discharge Instructions: LOTS OF CLEAR LIQUIDS--WATER, BROTH, JELLO, GATORADE AVOID TYLENOL/ACETAMINOPHEN NO ALCOHOL MAY TAKE IBUPROFEN NEEDED FOR PAIN MUCINEX DM FOR COUGH FOLLOW UP WITH YOUR DR NEXT WEEK FOR FURTHER CARE All discharge instructions reviewed with patient and/or family. Voiced understanding. BEN BENNETT Jun 16, 2021 16:19 SARAY العلي DO Jun 16, 2021 19:00
[2021-06-16 16:21] LABS: BASOPHILS % (AUTO) 0 % (0-10); EOSINOPHILS % (AUTO) 0 % (0-10); HEMATOCRIT 46 % (40-54); HEMOGLOBIN 15.9 g/dL (13.3-17.7); LYMPHOCYTES # (AUTO) 1.4 X 10^3 (1.0-4.0); LYMPHOCYTES % (AUTO) 25 % (12-44); MEAN CORPUSCULAR HEMOGLOBIN 29 pg (25-34); MEAN CORPUSCULAR HGB CONC 34 g/dL (32-36); MEAN CORPUSCULAR VOLUME 84 fL (80-99); MEAN PLATELET VOLUME 10.9 fL (9.0-12.2); MONOCYTES # (AUTO) 0.9 X 10^3 (0.0-1.0); MONOCYTES % (AUTO) 16 % (0-12); NEUTROPHILS # (AUTO) 3.2 X 10^3 (1.8-7.8); NEUTROPHILS % (AUTO) 58 % (42-75); PLATELET COUNT 293 10^3/uL (130-400); WHITE BLOOD COUNT 5.5 10^3/uL (4.3-11.0)
[2021-06-16 16:24] LABS: ALBUMIN 3.8 GM/DL (3.2-4.5); POTASSIUM 3.6 MMOL/L (3.6-5.0)
[2021-06-16 16:25] LABS: CALCIUM 9.3 MG/DL (8.5-10.1)
[2021-06-16 16:26] LABS: TOTAL PROTEIN 7.1 GM/DL (6.4-8.2)
[2021-06-16 16:28] LABS: BILIRUBIN,TOTAL 0.8 MG/DL (0.1-1.0)
[2021-06-16 16:30] LABS: CREATININE SERUM 0.76 MG/DL (0.60-1.30)
[2021-06-16] MEDS ORDERED: ONDANSETRON 4 MG/2 ML (SDV) Z0FRAN IVP ONE (16:30)
--- NOTE | 2021-06-16 16:41 | Diagnostic Imaging Report ---
INDICATION: Covid positive since Saturday. Cough and shortness of breath. EXAMINATION: Chest 06/16/2021. FINDINGS: There is linear atelectasis at the right lung base with elevation of the right hemidiaphragm. There are no focal infiltrates or effusions. There is no pneumothorax. The heart is unremarkable. Pulmonary vasculature is normal. No acute osseous abnormality. IMPRESSION: Elevation of the right hemidiaphragm with adjacent atelectasis. Otherwise negative chest. Dictated by: Dictated on workstation # [id number]
[2021-06-16 16:42] LABS: PROTHROMBIN TIME PATIENT 14.1 SEC (12.2-14.7)
[2021-06-16 16:43] LABS: INR 1.1 (0.8-1.4)
[2021-06-16 18:34] LABS: CLARITY,URINE CLEAR; COLOR,URINE YELLOW; GLUCOSE, URINE (UA) NEGATIVE (NEGATIVE); KETONES,URINE 1+ (NEGATIVE); LEUKOCYTE ESTERASE ,URINE NEGATIVE (NEGATIVE); NITRITE,URINE NEGATIVE (NEGATIVE); PROTEIN,URINE TRACE (NEGATIVE)
[2021-06-16 18:54] LABS: BILIRUBIN,URINE 1+ (NEGATIVE)
[2021-06-16 18:55] LABS: BACTERIA,URINE TRACE /HPF; SQUAMOUS EPITHELIAL CELL,UR 0-2 /HPF; WBC,URINE 0-2 /HPF
[2021-06-16 19:03] VITALS: BP 124/82
== END 2021-06-16 19:14 | disposition home or self-care (01) ==
LOC: EDUNIT# 15:06 → ER 15:10
DX: U07.1 COVID-19 (principal); E86.0 Dehydration; R94.5 Abnormal results of liver function studies; I10 Essential (primary) hypertension; Z79.899 Other long term (current) drug therapy
CPT/HCPCS: 36415; 71045; 80053; 81000; 84145; 85025; 85379; 85610; 85730; 86141

== ENCOUNTER → 2021-07-19 | Outpatient (CLI) | payer OTHER ==
[2021-07-19 11:01] LABS: BASOPHILS % (AUTO) 0 % (0-10); EOSINOPHILS # (AUTO) 0.1 10^3/uL (0.0-0.3); EOSINOPHILS % (AUTO) 2 % (0-10); HEMATOCRIT 49 % (40-54); HEMOGLOBIN 16.3 g/dL (13.3-17.7); LYMPHOCYTES # (AUTO) 1.3 10^3/uL (1.0-4.0); LYMPHOCYTES % (AUTO) 20 % (12-44); MEAN CORPUSCULAR HEMOGLOBIN 29 pg (25-34); MEAN CORPUSCULAR HGB CONC 33 g/dL (32-36); MEAN CORPUSCULAR VOLUME 88 fL (80-99); MEAN PLATELET VOLUME 11.9 fL (9.0-12.2); MONOCYTES # (AUTO) 0.8 10^3/uL (0.0-1.0); MONOCYTES % (AUTO) 13 % (0-12); NEUTROPHILS % (AUTO) 64 % (42-75); PLATELET COUNT 241 10^3/uL (130-400); WHITE BLOOD COUNT 6.2 10^3/uL (4.3-11.0)
[2021-07-19 11:19] LABS: ERYTHROCYTE SEDIMENTATION RATE 5 MM/HR (0-30)
[2021-07-19 11:27] LABS: ALBUMIN 4.4 GM/DL (3.2-4.5); BILIRUBIN,TOTAL 0.8 MG/DL (0.1-1.0); CREATININE SERUM 0.74 MG/DL (0.60-1.30); POTASSIUM 4.2 MMOL/L (3.6-5.0); TOTAL PROTEIN 7.5 GM/DL (6.4-8.2)
== END ==
LOC: LAB 10:32
PROVIDERS: ATTEND Family Medicine
DX: L02.611 Cutaneous abscess of right foot (principal); L97.515 Non-pressure chronic ulcer of other part of right foot with muscle involvement without evidence of necrosis; R94.5 Abnormal results of liver function studies; L03.115 Cellulitis of right lower limb; S91.311A Laceration without foreign body, right foot, initial encounter
CPT/HCPCS: 36415; 80053; 85025; 85652; 86141

== ENCOUNTER → 2021-07-19 | Outpatient (CLI) | payer OTHER | LOC: WOUNDCARE 08:48 | PROVIDERS: ATTEND Family Medicine | DX: I96 Gangrene, not elsewhere classified (principal); L02.611 Cutaneous abscess of right foot; S91.311A Laceration without foreign body, right foot, initial encounter; L97.515 Non-pressure chronic ulcer of other part of right foot with muscle involvement without evidence of necrosis; R94.5 Abnormal results of liver function studies; L03.115 Cellulitis of right lower limb | CPT/HCPCS: 11042; 87070; 87205; A6260; G0463 ==

== ENCOUNTER → 2021-07-26 | Outpatient (CLI) | payer OTHER ==
[~2021-07-26] MED LIST changes: +GADOTERATE 0.5 MMOL/ML (CLARISCAN) 20 ML VIAL IV ONE
--- NOTE | 2021-07-26 17:33 | Diagnostic Imaging Report ---
PROCEDURE: MR imaging right lower extremity with and without contrast. TECHNIQUE: Multiplanar, multisequence pre and post contrast-enhanced MR imaging of the right lower extremity was accomplished. INDICATION: Right foot abscess COMPARISON: None FINDINGS: There is marked edema in the right great toe proximal and distal phalanges with T1-weighted hypointensity. There appears to be a mildly superiorly and medially displaced fracture of the proximal phalangeal shaft. There is associated enhancement. There is bone marrow edema and T1-weighted marrow replacement in the distal shaft and head of the 2nd toe proximal phalanx. There is a superiorly displaced fracture of the phalangeal neck. No joint effusions are seen. No other fractures are identified. Alignment otherwise appears normal. There is a soft tissue ulceration at the dorsal aspect of the forefoot, with underlying necrotic tissue which measures about 2.0 x 0.8 x 1.7 cm in size. This appears open to the wound. There is surrounding enhancing edema. No deep walled off rim-enhancing fluid collections are seen. There is mild generalized muscular atrophy which is likely neurogenic. IMPRESSION: 1. Findings consistent with osteomyelitis of the great toe proximal and distal phalanges and the 2nd toe proximal phalanx, with mildly displaced fractures of the 1st and 2nd proximal phalanges. 2. Soft tissue ulceration at the dorsal right forefoot with underlying necrotic tissue and surrounding cellulitis. No deep drainable fluid collection is seen. Dictated by: Dictated on workstation # [id number]
== END ==
LOC: RAD 14:45
PROVIDERS: ATTEND Family Medicine
DX: L02.611 Cutaneous abscess of right foot (principal)
CPT/HCPCS: 73720

== ENCOUNTER → 2021-07-27 | Outpatient (CLI) | payer OTHER ==
[~2021-07-27] MED LIST changes: -GADOTERATE 0.5 MMOL/ML (CLARISCAN) 20 ML VIAL IV ONE
== END ==
LOC: WOUNDCARE 15:28
PROVIDERS: ATTEND Family Medicine
DX: S91.311A Laceration without foreign body, right foot, initial encounter (principal); L97.515 Non-pressure chronic ulcer of other part of right foot with muscle involvement without evidence of necrosis; R94.5 Abnormal results of liver function studies; L03.115 Cellulitis of right lower limb; M86.171 Other acute osteomyelitis, right ankle and foot; B95.2 Enterococcus as the cause of diseases classified elsewhere; I96 Gangrene, not elsewhere classified
CPT/HCPCS: 11042; G0463

== ENCOUNTER 2021-07-28 16:12 | Outpatient (RCR) | payer OTHER ==
[~2021-07-28] VITALS: Ht 167.6 cm; Wt 80.1 kg
[2021-07-28 16:50] VITALS: BP 134/96
[2021-07-28] MEDS ORDERED: VANCOMYCIN 1500 MG/NS 500 ML IVPB IV SCH ×2 (17:15)
[2021-08-04] MEDS ORDERED: GEMF600T88 PO (08:56)
[2021-08-04] MEDS ORDERED: LEVO750T39 PO (08:56)
[2021-08-04] MEDS ORDERED: HYDR-700 PO (08:56)
[2021-08-04] MEDS ORDERED: LISI10TA25 PO (08:56)
[2021-08-04] MEDS ORDERED: VANC1PIG IV (08:57)
[2021-08-07] MEDS ORDERED: ACHD5005 PO (11:25)
== END 2021-08-24 | disposition home or self-care (01) ==
LOC: SDC 16:12
PROVIDERS: ATTEND Family Medicine
DX: L02.611 Cutaneous abscess of right foot (principal); S91.311A Laceration without foreign body, right foot, initial encounter; L97.515 Non-pressure chronic ulcer of other part of right foot with muscle involvement without evidence of necrosis; L03.115 Cellulitis of right lower limb; M86.171 Other acute osteomyelitis, right ankle and foot; B95.2 Enterococcus as the cause of diseases classified elsewhere; R94.5 Abnormal results of liver function studies
CPT/HCPCS: 36569; 76937; C1751

== ENCOUNTER → 2021-07-31 | Outpatient (CLI) | payer OTHER ==
[2021-07-31 08:48] LABS: BASOPHILS % (AUTO) 0 % (0-10); EOSINOPHILS # (AUTO) 0.1 10^3/uL (0.0-0.3); EOSINOPHILS % (AUTO) 1 % (0-10); HEMATOCRIT 41 % (40-54); HEMOGLOBIN 14.1 g/dL (13.3-17.7); LYMPHOCYTES % (AUTO) 24 % (12-44); MEAN CORPUSCULAR HEMOGLOBIN 29 pg (25-34); MEAN CORPUSCULAR HGB CONC 34 g/dL (32-36); MEAN CORPUSCULAR VOLUME 85 fL (80-99); MEAN PLATELET VOLUME 12.1 fL (9.0-12.2); MONOCYTES # (AUTO) 0.8 10^3/uL (0.0-1.0); MONOCYTES % (AUTO) 9 % (0-12); NEUTROPHILS # (AUTO) 5.5 10^3/uL (1.8-7.8); NEUTROPHILS % (AUTO) 65 % (42-75); PLATELET COUNT 251 10^3/uL (130-400); WHITE BLOOD COUNT 8.5 10^3/uL (4.3-11.0)
[2021-07-31 09:05] LABS: VANCOMYCIN,TROUGH 10.6 UG/ML (10.0-20.0)
[2021-07-31 09:07] LABS: ERYTHROCYTE SEDIMENTATION RATE 9 MM/HR (0-30)
[2021-07-31 09:26] LABS: CALCIUM 8.4 MG/DL (8.5-10.1); CREATININE SERUM 0.62 MG/DL (0.60-1.30); POTASSIUM 3.6 MMOL/L (3.6-5.0)
== END ==
LOC: LABNPT 08:31
PROVIDERS: ATTEND Family Medicine
DX: L03.115 Cellulitis of right lower limb (principal); M86.171 Other acute osteomyelitis, right ankle and foot; B95.2 Enterococcus as the cause of diseases classified elsewhere; R94.5 Abnormal results of liver function studies; Z79.2 Long term (current) use of antibiotics
CPT/HCPCS: 80048; 80202; 85025; 85652; 86141

== ENCOUNTER → 2021-08-03 | Outpatient (CLI) | payer OTHER ==
[~2021-08-03] MED LIST changes: +ACHD5005 PO; +GEMF600T88 PO; +HYDR-700 PO; +LEVO750T39 PO; +LISI10TA25 PO; +VANC1PIG IV
== END ==
LOC: WOUNDCARE 15:31
PROVIDERS: ATTEND Family Medicine
DX: L02.611 Cutaneous abscess of right foot (principal); S91.311A Laceration without foreign body, right foot, initial encounter; L97.515 Non-pressure chronic ulcer of other part of right foot with muscle involvement without evidence of necrosis; L03.115 Cellulitis of right lower limb; M86.171 Other acute osteomyelitis, right ankle and foot; B95.2 Enterococcus as the cause of diseases classified elsewhere; I96 Gangrene, not elsewhere classified
CPT/HCPCS: 99212

== ENCOUNTER → 2021-08-03 | Outpatient (CLI) | payer OTHER ==
[2021-08-03 16:03] LABS: ALBUMIN 3.6 GM/DL (3.2-4.5); POTASSIUM 3.9 MMOL/L (3.6-5.0)
[2021-08-03 16:06] LABS: TOTAL PROTEIN 5.7 GM/DL (6.4-8.2)
[2021-08-03 16:08] LABS: BILIRUBIN,TOTAL 0.4 MG/DL (0.1-1.0)
[2021-08-03 16:09] LABS: CREATININE SERUM 0.65 MG/DL (0.60-1.30)
[2021-08-03 16:19] LABS: VANCOMYCIN,TROUGH 15.6 UG/ML (10.0-20.0)
== END ==
LOC: HH 07:00
PROVIDERS: ATTEND Family Medicine
DX: L03.115 Cellulitis of right lower limb (principal); M86.171 Other acute osteomyelitis, right ankle and foot; B95.2 Enterococcus as the cause of diseases classified elsewhere; R94.5 Abnormal results of liver function studies; Z79.2 Long term (current) use of antibiotics
CPT/HCPCS: 80053; 80202

== ENCOUNTER 2021-08-04 05:28 | Outpatient (CLI) | payer BC, OTHER ==
[~2021-08-04] VITALS: Ht 167.7 cm; Wt 88.2 kg
[~2021-08-04 05:28] MED LIST changes: -ACHD5005 PO; -GEMF600T88 PO; -HYDR-700 PO; -LEVO750T39 PO; -LISI10TA25 PO; -VANC1PIG IV
[2021-08-04] MEDS ORDERED: LISI10TA25 PO (08:56)
[2021-08-04] MEDS ORDERED: GEMF600T88 PO (08:56)
[2021-08-04] MEDS ORDERED: HYDR-700 PO (08:56)
[2021-08-04] MEDS ORDERED: LEVO750T39 PO (08:56)
[2021-08-04] MEDS ORDERED: VANC1PIG IV (08:57)
[2021-08-07] MEDS ORDERED: ACHD5005 PO (11:25)
== END 2021-08-08 08:40 ==
LOC: PREOP 05:28
PROVIDERS: ATTEND Podiatrist Foot & Ankle Surgery
DX: Z01.812 Encounter for preprocedural laboratory examination (principal); Z20.822 Contact with and (suspected) exposure to COVID-19
CPT/HCPCS: 87635

== ENCOUNTER 2021-08-07 07:26 | Day surgery (SDC) | payer BC, OTHER ==
[~2021-08-07] VITALS: Ht 167.7 cm; Wt 88.2 kg
[2021-08-07] VITALS (10 sets, daily range): BP systolic 108–161; BP diastolic 70–103
[~2021-08-07 07:26] MED LIST changes: +GEMF600T88 PO; +HYDR-700 PO; +LEVO750T39 PO; +LISI10TA25 PO; +VANC1PIG IV
[2021-08-07] MEDS ORDERED: LIDOCAINE 1% INJ 50 ML (XYLOCAINE) VIAL ONE (07:35)
[2021-08-07] MEDS ORDERED: BUPIVACAINE 0.5% 30 ML (SENSORCAINE) VIAL ONE (07:35)
[2021-08-07] MEDS ORDERED: LACTATED RINGERS 1,000 ML IV PRN (07:45)
[2021-08-07] MEDS ORDERED: fentaNYL INJ 100 MCG/2 ML AMP ONE (10:21)
[2021-08-07] MEDS ORDERED: LIDOCAINE PF 2% 5 ML (XYLOCAINE) VIAL ONE (10:21)
[2021-08-07] MEDS ORDERED: MIDAZOLAM 2 MG/2 ML (VERSED) VIAL ONE (10:21)
[2021-08-07] MEDS ORDERED: proPOfol 200 MG/20 ML (DIPRIVAN) VIAL IV ONE (10:21)
[2021-08-07] MEDS ORDERED: ONDANSETRON 4 MG/2 ML (SDV) Z0FRAN ONE (10:21)
[2021-08-07] MEDS ORDERED: ONDANSETRON 4 MG/2 ML (SDV) Z0FRAN IVP PRN (10:30)
[2021-08-07] MEDS ORDERED: morphine INJ 10 MG/ML 1ML (SYR OR VIAL) IVP ONE (10:30)
--- NOTE | 2021-08-07 10:35 | Progress Note-Pre Operative ---
Pre-Operative Progress Note H&P Reviewed The H&P was reviewed, patient examined and no changes noted. Date Seen by Provider: Aug 07, 2021 Time Seen by Provider: 10:35 Date H&P Reviewed: Aug 07, 2021 Time H&P Reviewed: 10:35 Pre-Operative Diagnosis: Osteomyelitis, right 1st and 2nd toes ANTOINETTE FORREST DPM Aug 07, 2021 10:35
[2021-08-07] MEDS ORDERED: SILVER SULFADIAZINE 50 GM CREAM ONE (11:10)
--- NOTE | 2021-08-07 11:22 | Progress Note-Post Operative ---
Post-Operative Progess Note Surgeon (s)/[employer] Tractor Operator (s) Surgeon ANTOINETTE FORREST DPM [employer] Tractor Operator: None Pre-Operative Diagnosis Osteomyelitis, right 1st and 2nd toes Post-Operative Diagnosis Same Procedure & Operative Findings Date of Procedure 08/07/21 Procedure Performed/Findings Bone Biopsy / Cultures, right 1st and 2nd toes Anesthesia Type general Estimated Blood Loss Estimated blood loss (mL): minimal Specimens/Packing Specimens Removed Bone from proximal phalanx of right 1st and 2nd toes ANTOINETTE FORREST DPM Aug 07, 2021 11:22
[2021-08-07] MEDS ORDERED: ACHD5005 PO ×2 (11:25)
[2021-08-07] MEDS ORDERED: SEVOFLURANE (ULTANE) 15 ML INHAL SOLN ONE ×2 (11:27→11:28)
[2021-08-07] MEDS ORDERED: LACTATED RINGERS 1,000 ML IV SCH (11:30)
[2021-08-07] MEDS ORDERED: HYDROcodone/APAP 5 MG/325 MG (LORTAB) TAB PO PRN (11:30)
--- NOTE | 2021-08-07 12:31 | Anesthesia-General Post-Op ---
General Patient Condition Mental Status/LOC: Same as Preop Cardiovascular: Satisfactory Nausea/Vomiting: Absent Respiratory: Satisfactory Pain: Controlled Complications: Absent Post Op Complications Complications None Follow Up Care/Instructions Patient Instructions None needed. Anesthesia/Patient Condition Patient Condition Patient is doing well, no complaints, stable vital signs, no apparent adverse anesthesia problems. ANJELICA THORNTON DO Aug 07, 2021 12:30
--- NOTE | 2021-08-07 13:28 | Physical Therapy Ortho Eval ---
PT Orthopedic Evaluation Type of Surgery osteomyelitis right hallux Prior Level of Function Current Living Status: Spouse Locomotion (Upon Admit): Independent Subjective Subjective Patient in bed pre tx, agrees to PT, states he only has a little pain in his right foot. Entry Into Home: Stairs With Railing Steps Into Home: 3 Motor Control Motor Control: Motor Control WNL ROM ROM: WFL Transfer SCALE: Activities may be completed with or without assistive devices. 3-Gbgavdomkk-coscbaa completes the activity by him/herself with no assistance from a helper. 5-Set-up or Clean-up Assistance-helper sets up or cleans up; patient completes activity. [place] assists only prior to or following the activity. 4-Supervision or Touching Assistance-helper provides verbal cues and/or touching/steadying and/or contact guard assistance as patient completes activity. Assistance may be provided throughout the activity or intermittently. 3-Partial/Moderate Assistance-helper does LESS THAN HALF the effort. [place] lifts, holds or supports trunk or limbs, but provides less than half the effort. 2-Substantial/Maximal Assistance-helper does MORE THAN HALF the effort. [place] lifts or holds trunk or limbs and provides more than half the effort. 1-Dvjkxgqml-ueucsm does ALL the effort. Patient does none of the effort to complete the activity. Or, the assistance of 2 or more helpers is required for the patient to complete the activity. If activity was not attempted, code reason: 7-Patient Refused. 9-Not Applicable-not attempted and the patient did not perform the activity before the current illness, exacerbation or injury. 10-Not Attempted due to Environmental Limitations-(lack of equipment, weather restraints, etc.). 88-Not Attempted due to Medical Conditions or Safety Concerns. Transfers (B, C, W/C) (QC): 4 Gait Gait Assistive Device: Crutches Right Lower Extremity: Right Weight Bearing Status RLE: Partial Weight Bearing Left Lower Extremity: Left Weight Bearing Status LLE: Full Weight Bearing Gait (QC): 4 Distance: 50'x2 Summary/Comments Patient ambulated 50'x2 with axillary crutches with CGA, cues for step placement, patient also went up and down 1 step using crutches with CGA and cues for foot placement. Patient is a little awkward using the crutches but didn't have a LOB. Treatment Rendered Treatment: Therapeutic Exercises, Gait Train, Step Train Exercise Instruction: Heel Slides, Ankle Pumps Assessment/Goals Goal Time Frame: 1 Visit Understands HEP: Yes Safe Ambulation: Yes Plan Treatment Plan: Discharge PT/Family Agrees to Plan: Yes Time Time In: 1300 Time Out: 1316 Total Billed Treatment Time: 16 Billed Treatment Time 1 visit EVL 16' MAHAD DEMPSEY PT Aug 07, 2021 13:28
--- NOTE | 2021-08-07 16:29 | OPERATIVE REPORT ---
DATE OF SERVICE: 08/07/2021 SURGEON: Kim Espinal DPM PREOPERATIVE DIAGNOSIS: Osteomyelitis right 1st and 2nd toes POSTOPERATIVE DIAGNOSIS: Same ANESTHESIA: General HEMOSTASIS: Thigh Tourniquet at 250 mmHg WOUND CLASS: Contaminated REASON FOR SURGERY: This 60-year-old male had an accident at work where the right forefoot had a crush injury. There is a fracture noted to the hallux that was being treated as well as the second toe. The patient apparently developed a fracture blister per report. He was then treated by wound care at [facility] and was referred to my clinic after a diagnosis of osteomyelitis to the hallux and second digit right foot. The patient has been treated with IV antibiotics; however, to further guide IV therapy for the six to eight weeks, a bone biopsy is to be done today. DESCRIPTION OF PROCEDURE: The patient was brought back to the operating table, placed in secure supine position. The right first and second digits were anesthetized utilizing a total of 10 mL of 1:1 mixture of 1% Xylocaine, 0.5% Marcaine injected in a digital block. A pneumatic thigh tourniquet was placed on the right lower extremity over several layers of padding. A general anesthetic was induced. The right foot was then prepped and draped in normal sterile manner. The right foot was then elevated, allowed to exsanguinate after which the tourniquet was inflated to 250 mmHg. Attention was then directed to the dorsal aspect of the proximal phalanx distal aspect of the right second toe where a 1 cm longitudinal linear incision was created. The incision was deepened down utilizing a combination of blunt and sharp dissection down to bone where utilizing a 3 mm trephine. A bone sample was taken and culture and sensitivities were to be taken from that bone biopsy. There appeared to be some softening of the bone in this particular area at the surgical neck right second toe. The wound was flushed with copious amounts of normal saline and closure was then performed in layers. Deep closure was performed with 4-0 Vicryl and skin closure with 4-0 Prolene in a horizontal mattress type stitch. It should be noted that no purulence or active exudate was noted at this time to the right second toe. Attention was then directed to the dorsal aspect of the proximal phalanx of the right hallux where a 1.5 cm longitudinal linear incision was created. The incision was deepened with sharp and bluntly down to bone, after which a 4 mm trephine was utilized to take a bone sample. The integrity of the bone was actually fairly good at this point. Bone biopsy sample was sent for culture and sensitivities. The wound was flushed with copious amounts of normal saline. No purulence was identified at this time. The bone did appear to feel somewhat softer than it should, but not extraordinarily soft in this particular area. It should be noted that there was no motion appreciated at the interphalangeal joint of the right hallux. The wound was flushed with copious amounts of normal saline. Closure was performed in layers. Deep closure was performed to the right hallux with 4-0 Vicryl and skin closure with 4-0 Prolene in a horizontal mattress type stitch. Postoperative dressing consisted of Silvadene to the full-thickness ulceration dorsal aspect of the right forefoot overlying the second, third and fourth metatarsals. Sterile 4 x 4s, Betadine-soaked Adaptic to the surgical sites, sterile Kerlix all secured with a Coban wrap. The patient tolerated the anesthesia and procedure well, was transported from the operating room to the recovery room with vital signs stable and vascular status intact to all digits of the right foot. He is to remain in surgical splint shoe and nonweightbearing as much as possible with crutches. We will see the patient back in the office in 10 days' period of time or sooner if necessary. Job ID: [id number] DocumentID: [id number] Dictated Date: 08/07/2021 11:34:28 Thermoforming Machine Operator Date: 08/07/2021 16:28:40 Dictated By: MICHELLE MELTON
--- NOTE | 2021-08-07 16:43 | Diagnostic Imaging Report ---
EXAMINATION: Right foot radiographs, 2 views. COMPARISON: None. HISTORY: 60-year-old male, right foot pain. Postop. FINDINGS: There is a severely comminuted displaced fracture of the first proximal phalanx without identified intra-articular fracture extension. The primary distal fracture fragment is medially displaced by 3.5 mm. There appears to be cortical offset of the diaphysis of the second proximal phalanx also suspicious for fracture. There are limitations on this study given the 2 view technique. There is mild degenerative type calcaneal enthesopathy. There is limited evaluation on the lateral view given overlap of multiple bones at the level of the phalanges. IMPRESSION: 1. Severely comminuted displaced fracture of the first proximal phalanx without intra-articular fracture extension. 2. Probable mildly displaced fracture of the second proximal phalanx. 3. Limited assessment on the exam given the 2 view technique as well as overlap of multiple phalanges on the lateral view. Dictated by: Dictated on workstation # [id number]
== END 2021-08-07 13:48 | disposition home or self-care (01) ==
LOC: SDC 07:26
PROVIDERS: ATTEND Podiatrist Foot & Ankle Surgery
DX: M86.8X7 Other osteomyelitis, ankle and foot (principal); L02.611 Cutaneous abscess of right foot; S91.311A Laceration without foreign body, right foot, initial encounter; L97.515 Non-pressure chronic ulcer of other part of right foot with muscle involvement without evidence of necrosis; R79.89 Other specified abnormal findings of blood chemistry; L03.115 Cellulitis of right lower limb; B95.2 Enterococcus as the cause of diseases classified elsewhere
CPT/HCPCS: 73620; 87070; 87075; 87077; 87081; 87101; 87186; 87205

== ENCOUNTER → 2021-08-08 | Outpatient (CLI) | payer OTHER ==
[~2021-08-08] MED LIST changes: +ACHD5005 PO
[2021-08-08 08:25] LABS: BASOPHILS % (AUTO) 0 % (0-10); EOSINOPHILS % (AUTO) 0 % (0-10); HEMATOCRIT 43 % (40-54); HEMOGLOBIN 14.7 g/dL (13.3-17.7); LYMPHOCYTES # (AUTO) 1.5 10^3/uL (1.0-4.0); LYMPHOCYTES % (AUTO) 12 % (12-44); MEAN CORPUSCULAR HEMOGLOBIN 29 pg (25-34); MEAN CORPUSCULAR HGB CONC 34 g/dL (32-36); MEAN CORPUSCULAR VOLUME 85 fL (80-99); MEAN PLATELET VOLUME 12.2 fL (9.0-12.2); MONOCYTES # (AUTO) 1.1 10^3/uL (0.0-1.0); MONOCYTES % (AUTO) 8 % (0-12); NEUTROPHILS # (AUTO) 10.6 10^3/uL (1.8-7.8); NEUTROPHILS % (AUTO) 79 % (42-75); PLATELET COUNT 271 10^3/uL (130-400); WHITE BLOOD COUNT 13.4 10^3/uL (4.3-11.0)
[2021-08-08 08:45] LABS: CALCIUM 8.8 MG/DL (8.5-10.1); CREATININE SERUM 0.69 MG/DL (0.60-1.30); POTASSIUM 4.2 MMOL/L (3.6-5.0)
[2021-08-08 08:49] LABS: ERYTHROCYTE SEDIMENTATION RATE 6 MM/HR (0-30); LYMPHOCYTES % (MANUAL) 9 %; MONOCYTES % (MANUAL) 8 %; NEUTROPHILS % (MANUAL) 83 %; RBC MORPH NORMAL
[2021-08-08 08:52] LABS: VANCOMYCIN,TROUGH 11.8 UG/ML (10.0-20.0)
== END ==
LOC: LABNPT 08:18
PROVIDERS: ATTEND Family Medicine
DX: L03.115 Cellulitis of right lower limb (principal); M86.171 Other acute osteomyelitis, right ankle and foot; B95.2 Enterococcus as the cause of diseases classified elsewhere; R94.5 Abnormal results of liver function studies; Z79.2 Long term (current) use of antibiotics
CPT/HCPCS: 80048; 80202; 85007; 85027; 85652; 86141

== ENCOUNTER → 2021-08-14 | Outpatient (CLI) | payer OTHER ==
[2021-08-14 09:00] LABS: CREATININE SERUM 0.66 MG/DL (0.60-1.30); POTASSIUM 3.9 MMOL/L (3.6-5.0)
[2021-08-14 09:07] LABS: VANCOMYCIN,TROUGH 12.7 UG/ML (10.0-20.0)
== END ==
LOC: LABNPT 08:39
PROVIDERS: ATTEND Family Medicine
DX: Z01.89 Encounter for other specified special examinations (principal)
CPT/HCPCS: 80048; 80202

== ENCOUNTER → 2021-08-21 | Outpatient (CLI) | payer OTHER | LOC: WOUNDCARE 15:31 | PROVIDERS: ATTEND Family Medicine | DX: L02.612 Cutaneous abscess of left foot (principal); S91.311A Laceration without foreign body, right foot, initial encounter; I96 Gangrene, not elsewhere classified; L97.515 Non-pressure chronic ulcer of other part of right foot with muscle involvement without evidence of necrosis; L03.115 Cellulitis of right lower limb; M86.171 Other acute osteomyelitis, right ankle and foot; B95.2 Enterococcus as the cause of diseases classified elsewhere; R79.89 Other specified abnormal findings of blood chemistry | CPT/HCPCS: 11042; A6197; G0463 ==

== ENCOUNTER → 2021-08-21 | Outpatient (CLI) | payer OTHER ==
[2021-08-21 08:43] LABS: BASOPHILS % (AUTO) 0 % (0-10); EOSINOPHILS # (AUTO) 0.1 10^3/uL (0.0-0.3); EOSINOPHILS % (AUTO) 1 % (0-10); HEMATOCRIT 46 % (40-54); HEMOGLOBIN 15.3 g/dL (13.3-17.7); LYMPHOCYTES # (AUTO) 1.3 10^3/uL (1.0-4.0); LYMPHOCYTES % (AUTO) 16 % (12-44); MEAN CORPUSCULAR HEMOGLOBIN 29 pg (25-34); MEAN CORPUSCULAR HGB CONC 34 g/dL (32-36); MEAN CORPUSCULAR VOLUME 86 fL (80-99); MEAN PLATELET VOLUME 11.2 fL (9.0-12.2); MONOCYTES # (AUTO) 0.6 10^3/uL (0.0-1.0); MONOCYTES % (AUTO) 8 % (0-12); NEUTROPHILS % (AUTO) 74 % (42-75); PLATELET COUNT 232 10^3/uL (130-400); WHITE BLOOD COUNT 8.1 10^3/uL (4.3-11.0)
[2021-08-21 08:58] LABS: CREATININE SERUM 0.64 MG/DL (0.60-1.30); POTASSIUM 4.2 MMOL/L (3.6-5.0)
[2021-08-21 09:05] LABS: VANCOMYCIN,TROUGH 13.4 UG/ML (10.0-20.0)
[2021-08-21 09:15] LABS: LYMPHOCYTES % (MANUAL) 20 %; MONOCYTES % (MANUAL) 7 %; NEUTROPHILS % (MANUAL) 73 %; RBC MORPH NORMAL
== END ==
LOC: LABNPT 07:35
PROVIDERS: ATTEND Family Medicine
DX: L02.611 Cutaneous abscess of right foot (principal); L03.115 Cellulitis of right lower limb; B95.2 Enterococcus as the cause of diseases classified elsewhere; M86.171 Other acute osteomyelitis, right ankle and foot
CPT/HCPCS: 80048; 80202; 85007; 85027

== ENCOUNTER → 2021-08-28 | Outpatient (CLI) | payer OTHER ==
[2021-08-28 09:01] LABS: BASOPHILS % (AUTO) 0 % (0-10); EOSINOPHILS # (AUTO) 0.1 10^3/uL (0.0-0.3); EOSINOPHILS % (AUTO) 1 % (0-10); HEMATOCRIT 46 % (40-54); HEMOGLOBIN 15.3 g/dL (13.3-17.7); LYMPHOCYTES # (AUTO) 1.9 10^3/uL (1.0-4.0); LYMPHOCYTES % (AUTO) 21 % (12-44); MEAN CORPUSCULAR HEMOGLOBIN 29 pg (25-34); MEAN CORPUSCULAR HGB CONC 33 g/dL (32-36); MEAN CORPUSCULAR VOLUME 86 fL (80-99); MEAN PLATELET VOLUME 11.2 fL (9.0-12.2); MONOCYTES # (AUTO) 0.9 10^3/uL (0.0-1.0); MONOCYTES % (AUTO) 10 % (0-12); NEUTROPHILS # (AUTO) 5.7 10^3/uL (1.8-7.8); NEUTROPHILS % (AUTO) 65 % (42-75); PLATELET COUNT 246 10^3/uL (130-400); WHITE BLOOD COUNT 8.8 10^3/uL (4.3-11.0)
[2021-08-28 09:27] LABS: CALCIUM 8.8 MG/DL (8.5-10.1); CREATININE SERUM 0.67 MG/DL (0.60-1.30)
[2021-08-28 09:36] LABS: VANCOMYCIN,TROUGH 15.4 UG/ML (10.0-20.0)
== END ==
LOC: LABNPT 08:55
PROVIDERS: ATTEND Family Medicine
DX: L02.611 Cutaneous abscess of right foot (principal); L03.115 Cellulitis of right lower limb; S81.801D Unspecified open wound, right lower leg, subsequent encounter; B95.2 Enterococcus as the cause of diseases classified elsewhere; M86.171 Other acute osteomyelitis, right ankle and foot
CPT/HCPCS: 80048; 80202; 85025

== ENCOUNTER → 2021-08-28 | Outpatient (CLI) | payer OTHER ==
[~2021-08-28] MED LIST changes: +OMEP20TA56 PO; -OMEP20TA7 PO
== END ==
LOC: WOUNDCARE 08:53
PROVIDERS: ATTEND Family Medicine
DX: Z53.9 Procedure and treatment not carried out, unspecified reason (principal)

== ENCOUNTER → 2021-08-29 | Outpatient (CLI) | payer OTHER ==
[~2021-08-29] MED LIST changes: -OMEP20TA56 PO; +OMEP20TA7 PO
== END ==
LOC: WOUNDCARE 15:17
PROVIDERS: ATTEND Family Medicine
DX: S91.311A Laceration without foreign body, right foot, initial encounter (principal); L02.611 Cutaneous abscess of right foot; L97.515 Non-pressure chronic ulcer of other part of right foot with muscle involvement without evidence of necrosis; L03.115 Cellulitis of right lower limb; M86.171 Other acute osteomyelitis, right ankle and foot; B95.2 Enterococcus as the cause of diseases classified elsewhere; R94.5 Abnormal results of liver function studies
CPT/HCPCS: 11042; G0463

== ENCOUNTER → 2021-09-04 | Outpatient (CLI) | payer OTHER | LOC: WOUNDCARE 15:19 | PROVIDERS: ATTEND Family Medicine | DX: L02.611 Cutaneous abscess of right foot (principal); S91.311A Laceration without foreign body, right foot, initial encounter; L97.515 Non-pressure chronic ulcer of other part of right foot with muscle involvement without evidence of necrosis; L03.115 Cellulitis of right lower limb; M86.171 Other acute osteomyelitis, right ankle and foot; B95.2 Enterococcus as the cause of diseases classified elsewhere; I96 Gangrene, not elsewhere classified; R94.5 Abnormal results of liver function studies | CPT/HCPCS: 11042; G0463 ==

== ENCOUNTER → 2021-09-04 | Outpatient (CLI) | payer OTHER ==
[2021-09-04 08:35] LABS: BASOPHILS % (AUTO) 0 % (0-10); EOSINOPHILS # (AUTO) 0.1 10^3/uL (0.0-0.3); EOSINOPHILS % (AUTO) 1 % (0-10); HEMATOCRIT 46 % (40-54); HEMOGLOBIN 15.4 g/dL (13.3-17.7); LYMPHOCYTES # (AUTO) 1.9 10^3/uL (1.0-4.0); LYMPHOCYTES % (AUTO) 17 % (12-44); MEAN CORPUSCULAR HEMOGLOBIN 29 pg (25-34); MEAN CORPUSCULAR HGB CONC 34 g/dL (32-36); MEAN CORPUSCULAR VOLUME 85 fL (80-99); MEAN PLATELET VOLUME 10.9 fL (9.0-12.2); MONOCYTES # (AUTO) 0.9 10^3/uL (0.0-1.0); MONOCYTES % (AUTO) 8 % (0-12); NEUTROPHILS # (AUTO) 8.4 10^3/uL (1.8-7.8); NEUTROPHILS % (AUTO) 73 % (42-75); PLATELET COUNT 257 10^3/uL (130-400); WHITE BLOOD COUNT 11.5 10^3/uL (4.3-11.0)
[2021-09-04 08:56] LABS: CALCIUM 8.9 MG/DL (8.5-10.1); CREATININE SERUM 0.65 MG/DL (0.60-1.30); POTASSIUM 4.1 MMOL/L (3.6-5.0)
[2021-09-04 09:03] LABS: VANCOMYCIN,TROUGH 13.3 UG/ML (10.0-20.0)
[2021-09-04 09:09] LABS: ANISOCYTOSIS SLIGHT; EOSINOPHILS % (MANUAL) 2 %; LYMPHOCYTES % (MANUAL) 12 %; MICROCYTOSIS SLIGHT; MONOCYTES % (MANUAL) 10 %; NEUTROPHILS % (MANUAL) 76 %
== END ==
LOC: LABNPT 08:28
PROVIDERS: ATTEND Family Medicine
DX: L02.611 Cutaneous abscess of right foot (principal); L03.115 Cellulitis of right lower limb; S81.801D Unspecified open wound, right lower leg, subsequent encounter; B95.2 Enterococcus as the cause of diseases classified elsewhere; M86.171 Other acute osteomyelitis, right ankle and foot
CPT/HCPCS: 80048; 80202; 85007; 85027

== ENCOUNTER → 2021-09-11 | Outpatient (CLI) | payer OTHER | LOC: WOUNDCARE 15:27 | PROVIDERS: ATTEND Family Medicine | DX: L02.611 Cutaneous abscess of right foot (principal); S91.321A Laceration with foreign body, right foot, initial encounter; L97.515 Non-pressure chronic ulcer of other part of right foot with muscle involvement without evidence of necrosis; R94.5 Abnormal results of liver function studies; L03.115 Cellulitis of right lower limb; M86.171 Other acute osteomyelitis, right ankle and foot; B95.2 Enterococcus as the cause of diseases classified elsewhere; I96 Gangrene, not elsewhere classified | CPT/HCPCS: 11042; A6021; G0463 ==

== ENCOUNTER → 2021-09-18 | Outpatient (CLI) | payer OTHER ==
[~2021-09-18] MED LIST changes: +OMEP20TA56 PO; -OMEP20TA7 PO
== END ==
LOC: WOUNDCARE 15:20
PROVIDERS: ATTEND Family Medicine
DX: S91.311A Laceration without foreign body, right foot, initial encounter (principal); L97.515 Non-pressure chronic ulcer of other part of right foot with muscle involvement without evidence of necrosis; M86.171 Other acute osteomyelitis, right ankle and foot; I96 Gangrene, not elsewhere classified; R94.5 Abnormal results of liver function studies
CPT/HCPCS: 11042; A6197; G0463

== ENCOUNTER → 2021-09-25 | Outpatient (CLI) | payer OTHER | LOC: WOUNDCARE 15:16 | PROVIDERS: ATTEND Family Medicine | DX: S91.311A Laceration without foreign body, right foot, initial encounter (principal); L97.515 Non-pressure chronic ulcer of other part of right foot with muscle involvement without evidence of necrosis; M86.171 Other acute osteomyelitis, right ankle and foot; R94.5 Abnormal results of liver function studies | CPT/HCPCS: 99212 ==

== ENCOUNTER → 2021-09-26 | Outpatient (CLI) | payer OTHER ==
[~2021-09-26] MED LIST changes: +GADOTERATE 0.5 MMOL/ML (CLARISCAN) 20 ML VIAL IV ONE
--- NOTE | 2021-09-26 18:18 | Diagnostic Imaging Report ---
PROCEDURE: MR imaging right lower extremity with and without contrast. TECHNIQUE: Multiplanar, multisequence pre and post contrast-enhanced MR imaging of the right lower extremity was accomplished. INDICATION: Laceration of the right foot. Attention right great toe and second toe. COMPARISON: 07/26/2021. FINDINGS: Redemonstrated is the old fracture of the right great toe proximal phalanx with a large defect in the shaft of the phalanx. There is T2 hyperintensity and T1 hypointensity in this region. While this could represent residual infection, this is markedly improved compared to 07/26/2021. The distal phalanx also is markedly improved. There is also deformity of the second toe proximal phalanx with a superior displaced fracture through the proximal phalangeal neck. There is mild edema and T1-weighted marrow replacement in the proximal phalanx which is improved since the prior exam. No acute abnormality is seen in the third through fifth toes or the remainder of the imaged forefoot. The Lisfranc ligament is intact. There is mild generalized muscular atrophy which may be neurogenic. Edema and enhancement in the soft tissues about the fluid has markedly improved since the prior study. No rim-enhancing fluid collection is seen. There is mild subcutaneous edema dorsal to the metatarsophalangeal joints. IMPRESSION: 1. Chronic fracture deformities of the first and second proximal phalanges. There may be mild residual osteomyelitis in the proximal phalanges, but findings have significantly improved compared to 07/26/2021. No new fracture or new osteomyelitis seen. No rim-enhancing soft tissue fluid collection. Dictated by: Dictated on workstation # [id number]
== END ==
LOC: RAD 14:45
PROVIDERS: ATTEND Family Medicine
DX: M86.171 Other acute osteomyelitis, right ankle and foot (principal); M21.6X1 Other acquired deformities of right foot
CPT/HCPCS: 73720

== ENCOUNTER → 2021-10-02 | Outpatient (CLI) | payer OTHER ==
[~2021-10-02] MED LIST changes: -GADOTERATE 0.5 MMOL/ML (CLARISCAN) 20 ML VIAL IV ONE
== END ==
LOC: WOUNDCARE 15:15
PROVIDERS: ATTEND Family Medicine
DX: R94.5 Abnormal results of liver function studies (principal); I10 Essential (primary) hypertension
CPT/HCPCS: 99212

== ENCOUNTER → 2022-06-27 | Outpatient (CLI) | payer OTHER ==
[~2022-06-27] MED LIST changes: +LEVO750T PO; -LEVO750T39 PO
--- NOTE | 2022-06-27 18:21 | Diagnostic Imaging Report ---
EXAMINATION: Right knee radiographs, 4 views. Left knee radiographs, 4 views. COMPARISON: None. HISTORY: 61-year-old male, bilateral knee pain. FINDINGS: The right and left patella are normally positioned. These are not weight-bearing images for optimal assessment of bone alignment otherwise. There is severe narrowing of the medial compartment joint spaces of the right and left knees. There is chondrocalcinosis. There is no right knee joint effusion. There is mild joint space loss and osteophyte formation at the patellofemoral compartment on the right and severe patellofemoral compartment joint space loss and osteophyte formation on the left. There is no right or left knee joint effusion. There is no identified acute fracture. IMPRESSION: 1. Severe medial and patellofemoral compartment osteoarthritis of the left knee without left knee joint effusion. 2. Severe medial and mild patellofemoral compartment arthritis of the right knee without right knee joint effusion. Dictated by: Dictated on workstation # [id number]
== END ==
LOC: ORTHO 11:44
PROVIDERS: ATTEND Orthopaedic Surgery
DX: M17.12 Unilateral primary osteoarthritis, left knee (principal); M13.861 Other specified arthritis, right knee
CPT/HCPCS: 73564; G0463; 99203

== ENCOUNTER → 2022-07-11 | Outpatient (CLI) | payer SELFPAY ==
[~2022-07-11] VITALS: Ht 180.3 cm; Wt 94.1 kg
[~2022-07-11] MED LIST changes: +ATOR10TA66 PO; +HYDR25TA4 PO; +LISI40TA9 PO
[2022-07-11 09:00] VITALS: BP 143/98
[2022-07-11 11:26] LABS: BILIRUBIN,URINE NEGATIVE (NEGATIVE); CLARITY,URINE CLEAR; COLOR,URINE YELLOW; GLUCOSE, URINE (UA) 1+ (NEGATIVE); KETONES,URINE NEGATIVE (NEGATIVE); LEUKOCYTE ESTERASE ,URINE NEGATIVE (NEGATIVE); NITRITE,URINE NEGATIVE (NEGATIVE); PROTEIN,URINE NEGATIVE (NEGATIVE)
[2022-07-11 11:28] LABS: BASOPHILS % (AUTO) 0 % (0-10); EOSINOPHILS # (AUTO) 0.1 10^3/uL (0.0-0.3); EOSINOPHILS % (AUTO) 2 % (0-10); HEMATOCRIT 47 % (40-54); HEMOGLOBIN 15.8 g/dL (13.3-17.7); LYMPHOCYTES # (AUTO) 1.8 10^3/uL (1.0-4.0); LYMPHOCYTES % (AUTO) 32 % (12-44); MEAN CORPUSCULAR HEMOGLOBIN 28 pg (25-34); MEAN CORPUSCULAR HGB CONC 34 g/dL (32-36); MEAN CORPUSCULAR VOLUME 85 fL (80-99); MEAN PLATELET VOLUME 11.9 fL (9.0-12.2); MONOCYTES # (AUTO) 0.9 10^3/uL (0.0-1.0); MONOCYTES % (AUTO) 16 % (0-12); NEUTROPHILS # (AUTO) 2.9 10^3/uL (1.8-7.8); NEUTROPHILS % (AUTO) 51 % (42-75); PLATELET COUNT 228 10^3/uL (130-400); WHITE BLOOD COUNT 5.7 10^3/uL (4.3-11.0)
[2022-07-11 11:42] LABS: BACTERIA,URINE NEGATIVE /HPF; HYALINE CASTS, URINE RARE /LPF
[2022-07-11 11:52] LABS: CALCIUM 9.5 MG/DL (8.5-10.1); CREATININE SERUM 0.73 MG/DL (0.60-1.30); POTASSIUM 3.7 MMOL/L (3.6-5.0)
--- NOTE | 2022-07-11 16:35 | Diagnostic Imaging Report ---
INDICATION: Preop knee arthroplasty. FINDINGS: There is mild elevation of the right hemidiaphragm with subjacent partial atelectasis. No edema or pneumonia apparent. Heart size and vascularity are normal. IMPRESSION: Elevated right diaphragm and slight basilar atelectasis. Dictated by: Dictated on workstation # [id number]
== END ==
LOC: PREOP 08:56
PROVIDERS: ATTEND Orthopaedic Surgery
DX: Z01.812 Encounter for preprocedural laboratory examination (principal); Z01.810 Encounter for preprocedural cardiovascular examination; M17.12 Unilateral primary osteoarthritis, left knee; J98.11 Atelectasis; J98.6 Disorders of diaphragm
CPT/HCPCS: 36415; 71046; 80048; 81000; 85025; 87081; 93005

== ENCOUNTER 2022-07-23 05:48 | Day surgery (SDC) | payer OTHER ==
[2022-07-23] VITALS (12 sets, daily range): BP systolic 89–184; BP diastolic 61–110
[~2022-07-23] VITALS: Ht 180.3 cm; Wt 94.1 kg
[2022-07-23] MEDS ORDERED: ceFAZolin INJECTION 2,000 MG in NS (IVPB) 50 ML IV ONE (06:15)
[2022-07-23] MEDS: LACTATED RINGERS 1,000 ML IV PRN ×2 (06:40→07:30)
[2022-07-23] MEDS ORDERED: fentaNYL INJ 100 MCG/2 ML AMP ONE (06:59)
[2022-07-23] MEDS ORDERED: PROPOFOL INJECTION 50 ML IV ONE (07:00)
[2022-07-23] MEDS ORDERED: MIDAZOLAM 2 MG/2 ML (VERSED) VIAL ONE (07:00)
--- NOTE | 2022-07-23 07:11 | Progress Note-Pre Operative ---
Pre-Operative Progress Note Date of Available H&P: Jun 27, 2022 Date H&P Reviewed: Jul 23, 2022 Time H&P Reviewed: 07:05 History & Physical: H&P Reviewed, Patient Examed, No changes noted Pre-Operative Diagnosis: Left Knee Primary Osteoarthritis IKER GALLAGHER MD Jul 23, 2022 07:11
[2022-07-23] MEDS ORDERED: TRANEXAMIC ACID 100 MG/ML 10 ML INJECTION ONE (07:37)
[2022-07-23] MEDS ORDERED: proPOfol 200 MG/20 ML (DIPRIVAN) VIAL IV ONE (08:19)
[2022-07-23] MEDS ORDERED: BUPIVACAINE 0.5% 30 ML (SENSORCAINE) VIAL ONE (09:34)
[2022-07-23] MEDS ORDERED: ONDANSETRON 4 MG/2 ML (SDV) Z0FRAN IVP PRN (09:45)
--- NOTE | 2022-07-23 09:48 | Operative Report - Ortho ---
Operative Report Surgeon (s)/Blasting Coal Miner (s) Surgeon IKER GALLAGHER MD Blasting Coal Miner n/a Pre-Operative Diagnosis Left Knee Primary Osteoarthritis Post-Operative Diagnosis same Operative Report Date of Procedure: Jul 23, 2022 Name of Procedure Performed: Left Total Knee Arthroplasty Description & Findings After obtaining informed consent and marking the patient in the preoperative holding area, the patient did receive IV antibiotics. Patient was taken to the operating room and anesthesia was induced. Surgical timeout was taken. The left lower extremity was prepped and draped in the usual sterile fashion. Incision was made and carried down to fascia. Arthrotomy was performed on the medial side of the patella. Patella was retracted laterally and knee was flexed. Found to have circumferential osteophtye around the distal femur as well as exposed bone in the medial compartment. Hole was made in the distal femur for the intramedullary distal femoral cutting guide. Resection was made then the femur was sized as a 6. 4-in-1 block for a size [address]. Anterior cut was made and there was no notch. Posterior cut was made followed by the chamfers. Box cut was performed. Lug holes were drilled. Attention was turned to the tibial side, extramedullary tibial guide was put into place and aligned with the tibial crest. It was set to take 2 mm off of the affected medial side. Drop shiva was used to confirm alignment. Resection was made and was parallel to the joint line. Tibial bone block was removed. Lamina lamination inspector was put into place and the menisci and posterior osteophytes were removed. The knee was trialed with a size 6 femur and a size 6 tibia with an 11 mm poly trial. It was found to come out to full extension and flexed beyond 120 degrees. It was stable to varus and valgus stress throughout its range of motion. This was accepted. Knee was brought out into extension and the patella was prepared for an inset patellar button. Trial patella was placed and tracked well. Trial implants were removed. Tibial tray was pinned and punched. Tibial press fit guide was placed and holes were drilled. The cut bone surfaces were lavaged with pulsatile normal saline. Implants were opened and assembled on the back table. A size 6 press fit tibial component was impacted into place. A size 6 press fit femoral component was impacted into place. Tibial tray was lavaged with saline. An 11 mm thick polyethylene component was locked into placed and the locking mechanism was checked. Knee was brought into extension. Betadine soak was performed and then, the knee was irrigated with normal saline. The knee was once again trialed; found to come to full extension, flexed beyond 120 degrees, and was stable to varus and valgus stress. Tourniquet was dropped and electrocautery was used for hemostasis. Fascial layer was closed with #2 Stratafix. The subcutaneous layer was closed with 2-0 Vicryl. The skin was closed with a running subcuticular 3-0 V-loc. Wound was dressed with steri- strips, xeroform, 4x4s, ABD, webril, and RICCARDO wrap. Patient tolerated the procedure well and was stable to the recovery room. Anesthesia Type Spinal Estimated Blood Loss 150 mL Specimen(s) collected/removed None IKER GALLAGHER MD Jul 23, 2022 09:47
[2022-07-23] MEDS ORDERED: MILK OF MAGNESIA 400 MG/5 ML 30 ML UDC PO PRN (10:00)
[2022-07-23] MEDS ORDERED: ACETAMINOPHEN 500 MG TAB (TYLENOL) PO PRN (10:00)
[2022-07-23] MEDS ORDERED: BISACODYL 5 MG (DULCOLAX) TABLET PO PRN (10:00)
[2022-07-23] MEDS ORDERED: ONDANSETRON 4 MG/2 ML (SDV) Z0FRAN IV PRN (10:00)
--- NOTE | 2022-07-23 10:16 | Diagnostic Imaging Report ---
INDICATION: Left knee pain AP and lateral views of the left knee show postoperative changes from joint arthroplasty. There is no evidence of loosening or periprosthetic fracture. IMPRESSION: Good alignment left knee following joint arthroplasty. Dictated by: Dictated on workstation # [id number]
[2022-07-23] MEDS: NS IV 1000 ML 1,000 ML IV SCH ×2 (11:22→20:21)
[2022-07-23] MEDS ORDERED: CATHETER FLUSH 10 ML SYR IVP PRN (13:00)
[2022-07-23] MEDS: morphine INJ 10 MG/ML 1ML (SYR OR VIAL) IVP PRN ×5 (13:30→22:34)
--- NOTE | 2022-07-23 14:21 | Physical Therapy Evaluation ---
PT Evaluation-General Medical Diagnosis Admission Date July 23, 2022 Medical Diagnosis: left knee OA Onset Date: Jul 23, 2022 Therapy Diagnosis Therapy Diagnosis: debility/weakness Height/Weight Height (Feet): 5 Height (Inches): 7.00 Weight (Pounds): 200 Precautions Precautions/Isolations: Fall Prevention, Standard Precautions Weight Bear Status Right Lower Extremity: Right Full Weight Bearing Left Lower Extremity: Left Weight Bearing/Tolerated Referral Physician: Zuleima Reason for Referral: Evaluation/Treatment Medical History Pertinent Medical History: OA Current History s/p elective left TKR Reviewed History: Yes Social History Home: Single Level Current Living Status: Spouse Prior Prior Level of Function SCALE: Activities may be completed with or without assistive devices. 0-Feotarbmcz-abzrnmb completes the activity by him/herself with no assistance from a helper. 5-Set-up or Clean-up Assistance-helper sets up or cleans up; patient completes activity. [place] assists only prior to or following the activity. 4-Supervision or Touching Assistance-helper provides verbal cues and/or touching/steadying and/or contact guard assistance as patient completes activity. Assistance may be provided throughout the activity or intermittently. 3-Partial/Moderate Assistance-helper does LESS THAN HALF the effort. [place] lifts, holds or supports trunk or limbs, but provides less than half the effort. 2-Substantial/Maximal Assistance-helper does MORE THAN HALF the effort. [place] lifts or holds trunk or limbs and provides more than half the effort. 2-Nlnppcvyv-dxqucl does ALL the effort. Patient does none of the effort to comp lete the activity. Or, the assistance of 2 or more helpers is required for the patient to complete the activity. If activity was not attempted, code reason: 7-Patient Refused. 9-Not Applicable-not attempted and the patient did not perform the activity before the current illness, exacerbation or injury. 10-Not Attempted due to Environmental Limitations-(lack of equipment, weather restraints, etc.). 88-Not Attempted due to Medical Conditions or Safety Concerns. Bed Mobility: 6 Transfers (B,C,W/C): 6 Gait: 6 Stairs: 6 Indoor Mobility (Ambulation): Independent Stairs: Independent Prior Devices Use: None PT Evaluation-Current Subjective Patient agrees to PT. Family present. Pain Numeric Pain Scale: 8 Location: Left Location Body Site: Knee Pain Description: Acute Objective Patient Orientation: Normal For Age Attachments: Howell Catheter, IV ROM/Strength ROM Lower Extremities left knee flexion 70 degrees/extension 10 degrees right LE WFL Strength Lower Extremities left LE 3+/5 grossly/right LE 5/5 Integumentary/Posture Bowel Incontinence: No Bladder Incontinence: Howell Cath Posture WFL Neuromuscular (Tone, Coordination, Reflexes) grossly intact Sensory Vision: Functional Hearing: Functional Transfers Lying to Sitting/Side of Bed(Q: 4 Sit to Stand (QC): 4 Chair/Cbk-dz-Joilk Xfer(QC): 4 Gait Mode of Locomotion: Walk Anticipated Mode of Locomotion: Walk Walk 10 feet (QC): 4 Walk 50 ft with 2 Turns(QC): 4 Distance: 50' Gait Assistive Device: FWW Comments/Gait Description antalgic Balance Sitting Static: Normal Sitting Dynamic: Normal Standing Static: Normal Standing Dynamic: Normal Assessment/Needs Patient will benefit from skilled PT to address functional strength and mobility to improve current LOF to safely return to home with family at maximum LOF. Rehab Potential: Good PT Snf Goals Rail Express Clerk Goals PT Rail Express Clerk Goals Time Frame: Jul 28, 2022 Roll Left & Right (QC): 6 Sit to Lying (QC): 6 Lying-Sitting on Side/Bed(QC): 6 Sit to Stand (QC): 6 Chair/Opk-li-Uvxzi Xfer(QC): 6 Toilet Transfer (QC): 6 Walk 10 feet (QC): 6 Walk 50ft with 2 Turns (QC): 6 Walk 150 ft (QC): 6 PT Plan Problem List Problem List: Activity Tolerance, Safety, Gait, Transfer, Bed Mobility, ROM Treatment/Plan Treatment Plan: Continue Plan of Care Treatment Plan: Bed Mobility, Education, Functional Activity Alice, Functional Strength, Gait, Safety, Therapeutic Exercise, Transfers Treatment Duration: Jul 28, 2022 Frequency: 11 times per week Estimated Hrs Per Day: .5 hour per day Patient and/or Family Agrees t: Yes Time Time In: 1300 Time Out: 1321 DATE: Jul 23, 2022 Total Billed Treatment Time: 21 Total Billed Treatment 1 visit EVMod 21 min YESENIA ANGEL PT Jul 23, 2022 14:21
[2022-07-23] MEDS: ASPIRIN E.C. 81 MG (ECOTRIN) TAB PO SCH (17:38)
--- NOTE | 2022-07-23 18:44 | Consultation ---
HPI History of Present Illness: HPI/Chief Complaint CC: Medical management following left knee replacement HPI: This is a 61yoHM who presents following left knee replacement by Dr Dewey. 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 He speaks minimal Upper Sorbian so I communicate with him in medical Yoruba. Currently we are having pain issues managed by Dr Dewey and elevated BP will require Norvasc addition. Source: patient, family Exam Limitations: language barrier Date Seen 07/23/22 Attending Physician [place] PCP Admitting Physician: Attending Physician: Yan Dewey MD Referring Physician Date of Admission Home Medications & Allergies Home Medications Reviewed patient Home Medication Reconciliation performed by pharmacy medication reconciliations facility technician and/or nursing. Patients Allergies have been reviewed. Allergies Allergies Coded Allergies No Known Drug Allergies (Unverified07/11/22) Past Djbwvon-Tuxmsj-Wfxfyf Hx Past Med/Social Hx: Reviewed Nursing Past Med/Soc Hx, Reviewed and Corrections made Patient Social History Marrital Status: Employed/Student: employed Alcohol Use: Rarely Uses Recreational Drug Use: Yes (QUIT SMOKING 2 YEARS AGO) Smoking Status: Former Smoker Former Smoker, Quit: May 27, 2009 2nd Hand Smoke Exposure: No Recent Foreign Travel: No Contact w/other who traveled: No Recent Hopitalizations: No Immunizations Up To Date Tetanus Booster (TDap): Unknown Date of Influenza Vaccine: Mar 07, 2022 Seasonal Allergies Seasonal Allergies: No Past Medical History Surgeries: Orthopedic Currently Using CPAP: No Currently Using BIPAP: No Cardiac: High Cholesterol, Hypertension Psychosocial: Anxiety History of Blood Disorders: No Family History Family history: Hypertension 09 BROTHER 09 SISTER No Pertinent Family Hx Review of Systems Constitutional: see HPI Musculoskeletal: joint pain Physical Exam Physical Exam Vital Signs Vital Signs - First Documented 07/23/22 06:35 Temp 36.3 Pulse 101 Resp 20 B/P (MAP) 146/103 (117) Pulse Ox 96 O2 Delivery Room Air Capillary Refill : Height, Weight, BMI Height: 5'7.00" Weight: 200lbs. oz. [id number]; 28.94 BMI Method:Stated General Appearance: WD/WN, Mild Distress Eyes: Bilateral Eye Normal Inspection, Bilateral Eye PERRL HEENT: PERRL/EOMI, Normal ENT Inspection, Pharynx Normal Neck: Full Range of Motion, Normal Inspection, Non Tender, Supple, Carotid Bruit Respiratory: Chest Non Tender, Lungs Clear, Normal Breath Sounds, No Accessory Muscle Use, No Respiratory Distress Cardiovascular: Regular Rate, Rhythm, No Edema, No Gallop, No JVD, No Murmur, Normal Peripheral Pulses Gastrointestinal: Normal Bowel Sounds, No Organomegaly, No Pulsatile Mass, Non Tender, Soft Back: Normal Inspection, No CVA Tenderness, No Vertebral Tenderness Extremity: Normal Capillary Refill, Normal Inspection, Normal Range of Motion (except left leg), Non Tender, No Calf Tenderness, No Pedal Edema Neurologic/Psychiatric: Alert, Oriented x3, No Motor/Sensory Deficits, Normal Mood/Affect Skin: Normal Color, Warm/Dry Lymphatic: No Adenopathy Results Results/Procedures Labs Patient resulted labs reviewed. Assessment/Plan Assessment and Plan Assess & Plan/Chief Complaint Assessment: s/p left knee replacement uncomplicated by Dr Dewey POD # 0 HTN OOC Former smoker HLP Plan: [facility] Monitor labs Pain control ADA BATISTA DO Jul 23, 2022 18:43
[2022-07-23] MEDS ORDERED: amLODIPine 5 MG (NORVASC) TAB PO NR (18:45)
[2022-07-23] MEDS: AtorvaSTATin TABLET 10 MG TABLET PO SCH (20:20)
[2022-07-23] MEDS: CELECOXIB 100 MG (CeleBREX) CAP PO SCH (20:20)
[2022-07-23] MEDS: DOCUSATE SODIUM 100 MG (COLACE) CAP PO SCH (20:21)
[2022-07-23] MEDS: ceFAZolin INJECTION 2,000 MG in NS (IVPB) 50 ML IV SCH (20:25)
[2022-07-23] MEDS ORDERED: cloNIDine 0.1 MG (CATAPRES) TAB PO PRN ×2 (22:30→22:45)
[2022-07-23] MEDS ORDERED: cloNIDine 0.1 MG (CATAPRES) TAB ONE (22:32)
[2022-07-24] VITALS (8 sets, daily range): BP systolic 120–184; BP diastolic 68–111
[2022-07-24] MEDS: morphine INJ 10 MG/ML 1ML (SYR OR VIAL) IVP PRN ×3 (01:07→23:53)
[2022-07-24] MEDS: MULTIVIT W/MINERALS TAB (THERAGRAN M) PO SCH (05:18)
[2022-07-24] MEDS: ceFAZolin INJECTION 2,000 MG in NS (IVPB) 50 ML IV SCH (05:18)
[2022-07-24 05:26] LABS: BASOPHILS % (AUTO) 0 % (0-10); EOSINOPHILS % (AUTO) 0 % (0-10); HEMATOCRIT 40 % (40-54); HEMOGLOBIN 13.8 g/dL (13.3-17.7); LYMPHOCYTES # (AUTO) 1.3 10^3/uL (1.0-4.0); LYMPHOCYTES % (AUTO) 13 % (12-44); MEAN CORPUSCULAR HEMOGLOBIN 29 pg (25-34); MEAN CORPUSCULAR HGB CONC 35 g/dL (32-36); MEAN CORPUSCULAR VOLUME 83 fL (80-99); MONOCYTES # (AUTO) 1.5 10^3/uL (0.0-1.0); MONOCYTES % (AUTO) 16 % (0-12); NEUTROPHILS # (AUTO) 6.6 10^3/uL (1.8-7.8); NEUTROPHILS % (AUTO) 70 % (42-75); PLATELET COUNT 241 10^3/uL (130-400); WHITE BLOOD COUNT 9.5 10^3/uL (4.3-11.0)
[2022-07-24 05:41] LABS: ALBUMIN 3.5 GM/DL (3.2-4.5); BILIRUBIN,TOTAL 1.2 MG/DL (0.1-1.0); CALCIUM 8.7 MG/DL (8.5-10.1); CREATININE SERUM 0.62 MG/DL (0.60-1.30); POTASSIUM 3.5 MMOL/L (3.6-5.0); TOTAL PROTEIN 5.9 GM/DL (6.4-8.2)
[2022-07-24] MEDS: NS IV 1000 ML 1,000 ML IV SCH (06:28)
[2022-07-24] MEDS: ASPIRIN E.C. 81 MG (ECOTRIN) TAB PO SCH ×2 (08:54→17:34)
[2022-07-24] MEDS: CELECOXIB 100 MG (CeleBREX) CAP PO SCH ×2 (08:55→20:30)
[2022-07-24] MEDS: amLODIPine 5 MG (NORVASC) TAB PO SCH (08:55)
[2022-07-24] MEDS: hydrOXYzine (VISTARIL/ATARAX) 25 MG capsule/tablet PO SCH (08:55)
[2022-07-24] MEDS: lisINopril 40 MG (PRINIVIL) TABLET PO SCH (08:55)
[2022-07-24] MEDS: DOCUSATE SODIUM 100 MG (COLACE) CAP PO SCH ×2 (08:55→20:30)
--- NOTE | 2022-07-24 09:11 | Anesthesia-Regional Post-Op ---
Regional Patient Condition Mental Status: Alert, Oriented x3 Circulation: Same as Pre-Op Headache: Absent Sensation: Full Recovery Motor Block: Absent Post Op Complications Complications None Follow Up Care/Instructions Patient Instructions None needed. Anesthesia/Patient Condition Patient is doing well, no complaints, stable vital signs, no apparent adverse anesthesia problems. No complications reported per nursing. ADDI RANDLE CRNA Jul 24, 2022 09:11
--- NOTE | 2022-07-24 09:30 | Physical Therapy Daily Note ---
PT Daily Note-Current Subjective Patient agrees to PT. Family present Pain Numeric Pain Scale: 6 Location: Left Location Body Site: Knee Pain Description: Acute Section J - Health Conditions 1. Rarely or not at all 2. Occasionally 3. Frequently 4. Almost constantly 8. Unable to answer Pain Effect on Sleep: 2 Pain Interference with Therapy: 2 Pain Interference w/Day-to-Day: 2 Mental Status Patient Orientation: Normal For Age Attachments: IV Transfers SCALE: Activities may be completed with or without assistive devices. 8-Abnkfnvqmr-jyrfrqg completes the activity by him/herself with no assistance from a helper. 5-Set-up or Clean-up Assistance-helper sets up or cleans up; patient completes activity. [place] assists only prior to or following the activity. 4-Supervision or Touching Assistance-helper provides verbal cues and/or touching/steadying and/or contact guard assistance as patient completes activity. Assistance may be provided throughout the activity or intermittently. 3-Partial/Moderate Assistance-helper does LESS THAN HALF the effort. [place] lifts, holds or supports trunk or limbs, but provides less than half the effort. 2-Substantial/Maximal Assistance-helper does MORE THAN HALF the effort. [place] lifts or holds trunk or limbs and provides more than half the effort. 8-Phrehlxbf-gbejhk does ALL the effort. Patient does none of the effort to complete the activity. Or, the assistance of 2 or more helpers is required for the patient to complete the activity. If activity was not attempted, code reason: 7-Patient Refused. 9-Not Applicable-not attempted and the patient did not perform the activity before the current illness, exacerbation or injury. 10-Not Attempted due to Environmental Limitations-(lack of equipment, weather restraints, etc.). 88-Not Attempted due to Medical Conditions or Safety Concerns. Lying to Sitting/Side of Bed(Q: 4 Sit to Stand (QC): 4 Chair/Hpm-za-Pvanb Xfer(QC): 4 Weight Bearing Right Lower Extremity: Right Full Weight Bearing Left Lower Extremity: Left Weight Bearing/Tolerated Gait Training Distance: 150' Walk 10 feet (QC): 4 Walk 50 ft with 2 Turns(QC): 4 Walk 150 ft (QC): 4 Gait Assistive Device: FWW slow, antalgic, reciprocal pattern Exercises Supine Ex: Ankle pumps, Quad Set, Heel Slides, Straight leg raise Supine Reps: 15 (AAROM left LE) Seated Therapy Exercises: Long arc quads Seated Reps: 15 (AAROM left LE) Assessment Patient progressing with treatment plan, however, does appear to self limit due to left knee pain. PT to increase activity as tolerated by patient. PT Fdc Goals Fdc Goals PT Demurrage Man Goals Time Frame: Jul 28, 2022 Roll Left & Right (QC): 6 Sit to Lying (QC): 6 Lying-Sitting on Side/Bed(QC): 6 Sit to Stand (QC): 6 Chair/Yez-aa-Gsplh Xfer(QC): 6 Toilet Transfer (QC): 6 Walk 10 feet (QC): 6 Walk 50ft with 2 Turns (QC): 6 Walk 150 ft (QC): 6 PT Plan Treatment/Plan Treatment Plan: Continue Plan of Care Treatment Plan: Bed Mobility, Education, Functional Activity Alice, Functional Strength, Gait, Safety, Therapeutic Exercise, Transfers Treatment Duration: Jul 28, 2022 Frequency: 11 times per week Estimated Hrs Per Day: .5 hour per day Patient and/or Family Agrees t: Yes Time Time In: 825 Time Out: 848 DATE: Jul 24, 2022 Total Billed Treatment Time: 23 Total Billed Treatment 1 visit EX 14 min GT 9 min YESENIA ANGEL PT Jul 24, 2022 09:30
[2022-07-24] MEDS ORDERED: KCL 20 MEQ TAB (K-DUR) PO NR (10:00)
--- NOTE | 2022-07-24 10:03 | Progress Note - Ortho ---
Progress Note Subjective Date of Exam 07/24/22 Chief Complaint POD #1 L TKA HPI/Events since last exam some issues with pain control, better this AM, overall doing okay Review of Systems - Allergies: Coded Allergies: No Known Drug Allergies (Unverified , 07/11/22) Home Meds Reported Medications Hydrochlorothiazide (Hydrochlorothiazide) 25 Mg Tablet, 25 MG PO DAILY, TAB 07/11/22 Atorvastatin Calcium (Atorvastatin Calcium) 10 Mg Tablet, 10 MG PO HS, TAB 07/11/22 Lisinopril (Lisinopril) 40 Mg Tablet, 40 MG PO DAILY, TAB 07/11/22 Hydroxyzine HCl (Hydroxyzine HCl) 25 Mg Tablet, 25 MG PO DAILY, TAB 08/04/21 Objective Exam L Knee: Dressing C/D/I, +DF of ankle, no s/s of DVT Vital Signs Vital Signs Date Time Temp Pulse Resp B/P (MAP) Pulse Ox O2 Delivery O2 Flow Rate FiO2 07/24/22 09:00 98 Room Air 07/24/22 08:23 36.8 105 18 132/94 (107) 96 Room Air 07/24/22 05:16 111 151/97 (115) 07/24/22 04:19 36.9 109 18 163/98 (119) 94 Room Air 07/24/22 00:15 37.0 117 20 184/111 (135) 92 Room Air 07/23/22 22:26 120 180/110 (133) 07/23/22 20:36 Room Air 07/23/22 19:39 36.5 118 20 184/108 (133) 95 Room Air 07/23/22 16:50 36.7 105 18 160/86 (110) 95 Room Air 07/23/22 11:03 98 Room Air 07/23/22 11:00 35.9 81 18 122/79 (93) 96 Room Air 07/23/22 10:35 Room Air 07/23/22 10:30 36.3 18 115/81 (92) 98 Room Air 07/23/22 10:20 Room Air 07/23/22 10:20 18 105/81 (89) 98 Room Air 07/23/22 10:10 20 111/73 (86) 99 Room Air 07/23/22 10:05 Room Air I & O 07/24/22 07:00 Intake Total 5120 ml Output Total 2905 ml Balance 2215 ml Lab Results Laboratory Tests 07/24/22 05:05: White Blood Count 9.5, Red Blood Count 4.81, Hemoglobin 13.8, Hematocrit 40, Mean Corpuscular Volume 83, Mean Corpuscular Hemoglobin 29, Mean Corpuscular Hemoglobin Concent 35, Red Cell Distribution Width 12.9, Platelet Count 241, Mean Platelet Volume 12.0, Immature Granulocyte % (Auto) 0, Neutrophils (%) (Auto) 70, Lymphocytes (%) (Auto) 13, Monocytes (%) (Auto) 16H, Eosinophils (%) (Auto) 0, Basophils (%) (Auto) 0, Neutrophils # (Auto) 6.6, Lymphocytes # (Auto) 1.3, Monocytes # (Auto) 1.5H, Eosinophils # (Auto) 0.0, Basophils # (Auto) 0.0, Immature Granulocyte # (Auto) 0.0, Sodium Level 133L, Potassium Level 3.5L, Chloride Level 100, Carbon Dioxide Level 23, Anion Gap 10, Blood Urea Nitrogen 8, Creatinine 0.62, Estimat Glomerular Filtration Rate 107, BUN/Creatinine Ratio 13, Glucose Level 164H, Calcium Level 8.7, Corrected Calcium 9.1, Total Bilirubin 1.2H, Aspartate Amino Transf (AST/SGOT) 35H, Alanine Aminotransferase (ALT/SGPT) 32, Alkaline Phosphatase 70, Total Protein 5.9L, Albumin 3.5 Imaging 2 postop views of the left knee dated 07/23/22 were reviewed from PACS and demonstrated prior total knee arthroplasty with components in good position Assessment and Plan Assessment Left Knee Primary Osteoarthritis s/p Left Total Knee Arthroplasty Problem List Left Knee Primary Osteoarthritis s/p Left Total Knee Arthroplasty Plan PT/OT DVT Prophylaxis Home tomorrow with therapy either home health or outpatient as able to arrange Final Diagonsis Left Knee Primary Osteoarthritis s/p Left Total Knee Arthroplasty Level of the visit: Level 3 (global) IKER GALLAGHER MD Jul 24, 2022 10:03
--- NOTE | 2022-07-24 11:05 | Progress Note ---
ROSA ERAZO 07/24/22 1105: Subjective Date Seen by a Provider: Jul 24, 2022 Time Seen by a Provider: 09:00 Subjective/Events-last exam Patient seen at bedside this AM. He is resting comfortably in bed. He reports pain is much better controlled today with the worst being 5/10. His byrd was removed and he has been out of bed and used the restroom already. No gas/BMs yet. Has been able to eat without any nausea or discomfort. No other complaints. Objective Exam Last Set of Vital Signs Vital Signs Date Time Temp Pulse Resp B/P (MAP) Pulse Ox O2 Delivery O2 Flow Rate FiO2 07/24/22 09:00 98 Room Air 07/24/22 08:23 36.8 105 18 132/94 (107) 07/23/22 09:50 2.00 Capillary Refill : I&O Intake and Output 07/24/22 00:00 Intake Total 3470 ml Output Total 1605 ml Balance 1865 ml Intake Oral 820 ml IV Total 2650 ml Output Urine Total 1605 ml General: Alert, Oriented X3, No Acute Distress HEENT: Atraumatic Heart: Regular Rate, Normal S1, Normal S2, No Murmurs Abdomen: Normal Bowel Sounds, Soft Extremities: No Edema, Other (Left knee - post-operative dressings.) Neuro: Normal Speech Psych/Mental Status: Mental Status NL, Mood NL Results Lab Laboratory Tests 07/24/22 05:05: White Blood Count 9.5, Red Blood Count 4.81, Hemoglobin 13.8, Hematocrit 40, Mean Corpuscular Volume 83, Mean Corpuscular Hemoglobin 29, Mean Corpuscular Hemoglobin Concent 35, Red Cell Distribution Width 12.9, Platelet Count 241, Mean Platelet Volume 12.0, Immature Granulocyte % (Auto) 0, Neutrophils (%) (Auto) 70, Lymphocytes (%) (Auto) 13, Monocytes (%) (Auto) 16H, Eosinophils (%) (Auto) 0, Basophils (%) (Auto) 0, Neutrophils # (Auto) 6.6, Lymphocytes # (Auto) 1.3, Monocytes # (Auto) 1.5H, Eosinophils # (Auto) 0.0, Basophils # (Auto) 0.0, Immature Granulocyte # (Auto) 0.0, Sodium Level 133L, Potassium Level 3.5L, Chloride Level 100, Carbon Dioxide Level 23, Anion Gap 10, Blood Urea Nitrogen 8, Creatinine 0.62, Estimat Glomerular Filtration Rate 107, BUN/Creatinine Ratio 13, Glucose Level 164H, Calcium Level 8.7, Corrected Calcium 9.1, Total Bilirubin 1.2H, Aspartate Amino Transf (AST/SGOT) 35H, Alanine Aminotransferase (ALT/SGPT) 32, Alkaline Phosphatase 70, Total Protein 5.9L, Albumin 3.5 Radiology NAME: [facility] REC#: [id number] PT STATUS: REG [facility] : 1960 PHYSICIAN: IKER GALLAGHER MD ADMIT DATE: 07/23/22 Signed Date of Exam:07/23/22 KNEE, LEFT, 2 VIEWS (AP & LAT) INDICATION: Left knee pain AP and lateral views of the left knee show postoperative changes from joint arthroplasty. There is no evidence of loosening or periprosthetic fracture. IMPRESSION: Good alignment left knee following joint arthroplasty. Dictated by: Dictated on workstation # [id number] Dict: 07/23/22 1009 Trans: 07/23/22 1123 [facility] [id number] Interpreted by: YOHANA BRADLEY MD Electronically signed by: YOHANA BRADLEY MD 07/23/22 1123 Assessment/Plan Assessment/Plan Assess & Plan/Chief Complaint Assessment: 61 y/o male s/p uncomplicated left knee replacement with Dr. Gallagher now POD#1. HTN, uncontrolled Former smoker HLP Plan: Uncontrolled HTN - Improved on Norvasc overnight - Continue home meds today (lisinopril, HCTZ), will continue Norvasc once home. - Labs WNL Post-operative Cares - Encouraged out of bed/ambulation - Encouraged PO intake - Pain control is adequate this AM. - Byrd out, voiding spontaneously - Continue bowel regimen - Planned to DC to home today with PT/OT by surgery team SAVANNAH BATISTA DO 07/25/22 0438: Supervisory-Addendum Brief Verification & Attestation Participated in pt care: history, MDM, physical Personally performed: exam, history, MDM, supervision of care Care discussed with: Medical Student Procedures: n/a Results interpretation: Verified all documentation Verification and Attestation of Medical Student E/M Service A medical student performed and documented this service in my presence. I reviewed and verified all information documented by the medical student and made modifications to such information, when appropriate. I personally performed the physical exam and medical decision making. Savannah Batista, Jul 25, 2022,04:38 ROSA ERAZO Jul 24, 2022 11:05 SAVANNAH BATISTA DO Jul 25, 2022 04:38
--- NOTE | 2022-07-24 11:27 | Occ Therapy Progress Note ---
Therapy Progress Note OT assessed Patient w/ PT, interview w/ patient and family, observed patient ambulate in [place] w/ ADs Modified Independently. Discontinue OT order no OT needs indicated CHRISTIANO ALMODOVAR OT Jul 24, 2022 11:27
--- NOTE | 2022-07-24 14:20 | Physical Therapy Daily Note ---
PT Daily Note-Current Subjective Patient agrees to PT. Pain Numeric Pain Scale: 5-Moderate Pain Location: Left Location Body Site: Knee Pain Description: Acute Section J - Health Conditions 1. Rarely or not at all 2. Occasionally 3. Frequently 4. Almost constantly 8. Unable to answer Pain Effect on Sleep: 2 Pain Interference with Therapy: 2 Pain Interference w/Day-to-Day: 2 Mental Status Patient Orientation: Normal For Age Transfers SCALE: Activities may be completed with or without assistive devices. 6-Anzosgdpik-itybxsv completes the activity by him/herself with no assistance from a helper. 5-Set-up or Clean-up Assistance-helper sets up or cleans up; patient completes activity. [place] assists only prior to or following the activity. 4-Supervision or Touching Assistance-helper provides verbal cues and/or touching/steadying and/or contact guard assistance as patient completes activity. Assistance may be provided throughout the activity or intermittently. 3-Partial/Moderate Assistance-helper does LESS THAN HALF the effort. [place] lifts, holds or supports trunk or limbs, but provides less than half the effort. 2-Substantial/Maximal Assistance-helper does MORE THAN HALF the effort. [place] lifts or holds trunk or limbs and provides more than half the effort. 4-Uaqpohjrp-lvwhbh does ALL the effort. Patient does none of the effort to complete the activity. Or, the assistance of 2 or more helpers is required for the patient to complete the activity. If activity was not attempted, code reason: 7-Patient Refused. 9-Not Applicable-not attempted and the patient did not perform the activity before the current illness, exacerbation or injury. 10-Not Attempted due to Environmental Limitations-(lack of equipment, weather restraints, etc.). 88-Not Attempted due to Medical Conditions or Safety Concerns. Sit to Lying (QC): 6 Lying to Sitting/Side of Bed(Q: 6 Sit to Stand (QC): 6 Chair/Hqn-tn-Eyzge Xfer(QC): 6 Weight Bearing Right Lower Extremity: Right Full Weight Bearing Left Lower Extremity: Left Weight Bearing/Tolerated Gait Training Distance: 250' Walk 10 feet (QC): 5 Walk 50 ft with 2 Turns(QC): 5 Walk 150 ft (QC): 5 Gait Assistive Device: FWW slow,steady, antalgic Exercises Supine Ex: Ankle pumps, Quad Set, Heel Slides, Straight leg raise Supine Reps: 15 Seated Therapy Exercises: Long arc quads Seated Reps: 15 Assessment Patient progressing with treatment plan. Patient continues to have difficulty with activating left quad for SLR and LAQ. PT to increase activity as tolerated by patient. PT Group Home Goals Cardiac Cath Technician Goals PT Group Home Goals Time Frame: Jul 28, 2022 Roll Left & Right (QC): 6 Sit to Lying (QC): 6 Lying-Sitting on Side/Bed(QC): 6 Sit to Stand (QC): 6 Chair/Agw-he-Dhnma Xfer(QC): 6 Toilet Transfer (QC): 6 Walk 10 feet (QC): 6 Walk 50ft with 2 Turns (QC): 6 Walk 150 ft (QC): 6 PT Plan Treatment/Plan Treatment Plan: Continue Plan of Care Treatment Plan: Bed Mobility, Education, Functional Activity Alice, Functional Strength, Gait, Safety, Therapeutic Exercise, Transfers Treatment Duration: Jul 28, 2022 Frequency: 11 times per week Estimated Hrs Per Day: .5 hour per day Patient and/or Family Agrees t: Yes Time Time In: 1250 Time Out: 1314 DATE: Jul 24, 2022 Total Billed Treatment Time: 24 Total Billed Treatment 1 visit EX 14 min GT 10 min YESENIA ANGEL PT Jul 24, 2022 14:20
[2022-07-24] MEDS: AtorvaSTATin TABLET 10 MG TABLET PO SCH (20:30)
[2022-07-25 04:23] VITALS: BP 123/78
[2022-07-25] MEDS: morphine INJ 10 MG/ML 1ML (SYR OR VIAL) IVP PRN (05:46)
[2022-07-25] MEDS: MULTIVIT W/MINERALS TAB (THERAGRAN M) PO SCH (05:46)
[2022-07-25 06:06] LABS: BASOPHILS % (AUTO) 0 % (0-10); EOSINOPHILS # (AUTO) 0.1 10^3/uL (0.0-0.3); EOSINOPHILS % (AUTO) 1 % (0-10); HEMATOCRIT 38 % (40-54); HEMOGLOBIN 13.1 g/dL (13.3-17.7); LYMPHOCYTES # (AUTO) 1.3 10^3/uL (1.0-4.0); LYMPHOCYTES % (AUTO) 16 % (12-44); MEAN CORPUSCULAR HEMOGLOBIN 28 pg (25-34); MEAN CORPUSCULAR HGB CONC 34 g/dL (32-36); MEAN CORPUSCULAR VOLUME 83 fL (80-99); MONOCYTES # (AUTO) 1.2 10^3/uL (0.0-1.0); MONOCYTES % (AUTO) 15 % (0-12); NEUTROPHILS # (AUTO) 5.5 10^3/uL (1.8-7.8); NEUTROPHILS % (AUTO) 68 % (42-75); PLATELET COUNT 191 10^3/uL (130-400); WHITE BLOOD COUNT 8.2 10^3/uL (4.3-11.0)
[2022-07-25 06:32] LABS: ALBUMIN 3.3 GM/DL (3.2-4.5); BILIRUBIN,TOTAL 1.3 MG/DL (0.1-1.0); CALCIUM 8.8 MG/DL (8.5-10.1); CREATININE SERUM 0.59 MG/DL (0.60-1.30); POTASSIUM 3.4 MMOL/L (3.6-5.0); TOTAL PROTEIN 5.8 GM/DL (6.4-8.2)
[2022-07-25 07:06] VITALS: BP 137/82
[2022-07-25] MEDS: CELECOXIB 100 MG (CeleBREX) CAP PO SCH (08:18)
[2022-07-25] MEDS: amLODIPine 5 MG (NORVASC) TAB PO SCH (08:19)
[2022-07-25] MEDS: DOCUSATE SODIUM 100 MG (COLACE) CAP PO SCH (08:19)
[2022-07-25] MEDS: hydrOXYzine (VISTARIL/ATARAX) 25 MG capsule/tablet PO SCH (08:19)
[2022-07-25] MEDS: ASPIRIN E.C. 81 MG (ECOTRIN) TAB PO SCH (08:19)
[2022-07-25] MEDS: lisINopril 40 MG (PRINIVIL) TABLET PO SCH (08:20)
--- NOTE | 2022-07-25 09:32 | Physical Therapy Daily Note ---
PT Daily Note-Current Subjective Patient lying supine in bed upon PT arrival, agreeable to treatment. Rates pain in left knee at 8/10 currently. Pain Section J - Health Conditions 1. Rarely or not at all 2. Occasionally 3. Frequently 4. Almost constantly 8. Unable to answer Pain Effect on Sleep: 2 Pain Interference with Therapy: 2 Pain Interference w/Day-to-Day: 2 Transfers SCALE: Activities may be completed with or without assistive devices. 7-Cwdilunzwa-noofjyg completes the activity by him/herself with no assistance from a helper. 5-Set-up or Clean-up Assistance-helper sets up or cleans up; patient completes activity. [place] assists only prior to or following the activity. 4-Supervision or Touching Assistance-helper provides verbal cues and/or touching/steadying and/or contact guard assistance as patient completes activity. Assistance may be provided throughout the activity or intermittently. 3-Partial/Moderate Assistance-helper does LESS THAN HALF the effort. [place] lifts, holds or supports trunk or limbs, but provides less than half the effort. 2-Substantial/Maximal Assistance-helper does MORE THAN HALF the effort. [place] lifts or holds trunk or limbs and provides more than half the effort. 3-Plctmjvgw-kqeypt does ALL the effort. Patient does none of the effort to complete the activity. Or, the assistance of 2 or more helpers is required for the patient to complete the activity. If activity was not attempted, code reason: 7-Patient Refused. 9-Not Applicable-not attempted and the patient did not perform the activity before the current illness, exacerbation or injury. 10-Not Attempted due to Environmental Limitations-(lack of equipment, weather restraints, etc.). 88-Not Attempted due to Medical Conditions or Safety Concerns. Roll Left & Right (QC): 4 Sit to Lying (QC): 4 Lying to Sitting/Side of Bed(Q: 4 Sit to Stand (QC): 3 Chair/Sed-jv-Ypkkk Xfer(QC): 4 Weight Bearing Right Lower Extremity: Right Full Weight Bearing Left Lower Extremity: Left Weight Bearing/Tolerated Gait Training Does the Patient Walk?: Yes Distance: 150 feet Walk 10 feet (QC): 4 Walk 50 ft with 2 Turns(QC): 4 Walk 150 ft (QC): 4 Gait Persons Needed: 1 Gait Assistive Device: FWW Exercises Supine Ex: Ankle pumps, Quad Set, Heel Slides, Straight leg raise, Hip abd/add Supine Reps: 20 Assessment Current Status: Fair Progress Patient tolerated treatment fair. Appears to be in more pain due to guarding of left knee. Patient performs LE exercise as listed above. Patient performs all bed mobility and transfers with CGA. Patient ambulates 150 feet with FWW, with SBA and verbal cues for safety, progression, balance and conservation of energy. Patient in bed post treatment with all needs met, nursing notified, call light in reach and in the room. PT Care Home Goals Arts And Crafts Teacher Goals PT Care Home Goals Time Frame: Jul 28, 2022 Roll Left & Right (QC): 6 Sit to Lying (QC): 6 Lying-Sitting on Side/Bed(QC): 6 Sit to Stand (QC): 6 Chair/Dhf-iz-Kicpj Xfer(QC): 6 Toilet Transfer (QC): 6 Walk 10 feet (QC): 6 Walk 50ft with 2 Turns (QC): 6 Walk 150 ft (QC): 6 PT Plan Treatment/Plan Treatment Plan: Continue Plan of Care Treatment Plan: Bed Mobility, Education, Functional Activity Alice, Functional Strength, Gait, Safety, Therapeutic Exercise, Transfers Treatment Duration: Jul 28, 2022 Frequency: 11 times per week Estimated Hrs Per Day: .5 hour per day Patient and/or Family Agrees t: Yes Safety Risks/Education Patient Education: Gait Training, Transfer Techniques Teaching Recipient: Patient Teaching Methods: Demonstration, Discussion Response to Teaching: Verbalize Understanding, Return Demonstration Time Time In: 858 Time Out: 924 DATE: Jul 25, 2022 Total Billed Treatment Time: 26 Total Billed Treatment Visit, EX, Gait GORAN FERRARO PT Jul 25, 2022 09:32
[2022-07-25] MEDS ORDERED: OXC5T PO (09:57)
[2022-07-25] MEDS ORDERED: ASPI-1238 PO (09:57)
--- NOTE | 2022-07-25 10:01 | Discharge Summary ---
Discharge Summary Hospital Course Hospital Course Date of Admission: 07/23/22 Admission Diagnosis : Left Knee Primary Osteoarthritis [facility] Date [facility]: 07/25/22 Discharge Diagnosis: [Left Knee Primary Osteoarthritis] Hospital Course: [On 07/23/22, patient underwent left total knee arthroplasty. Tolerated the procedure well and was transferred to the regular floor. On the day of surgery, began mechanical DVT prophylaxis and started to work with therapy. On POD #1, made good progress with therapy and began chemical DVT prophylaxis. On POD #2, continued to make progress with therapy and outpatient therapy arrangements were made. Patient was ready for discharge home. ] Labs and Pending Lab Test: Laboratory Tests 07/25/22 05:40: White Blood Count 8.2, Red Blood Count 4.61, Hemoglobin 13.1L, Hematocrit 38L, Mean Corpuscular Volume 83, Mean Corpuscular Hemoglobin 28, Mean Corpuscular Hemoglobin Concent 34, Red Cell Distribution Width 13.2, Platelet Count 191, Mean Platelet Volume 12.0, Immature Granulocyte % (Auto) 0, Neutrophils (%) (Auto) 68, Lymphocytes (%) (Auto) 16, Monocytes (%) (Auto) 15H, Eosinophils (%) (Auto) 1, Basophils (%) (Auto) 0, Neutrophils # (Auto) 5.5, Lymphocytes # (Auto) 1.3, Monocytes # (Auto) 1.2H, Eosinophils # (Auto) 0.1, Basophils # (Auto) 0.0, Immature Granulocyte # (Auto) 0.0, Sodium Level 133L, Potassium Level 3.4L, Chloride Level 99, Carbon Dioxide Level 25, Anion Gap 9, Blood Urea Nitrogen 6L, Creatinine 0.59L, Estimat Glomerular Filtration Rate 109, BUN/Creatinine Ratio 10, Glucose Level 138H, Calcium Level 8.8, Corrected Calcium 9.4, Total Bilirubin 1.3H, Aspartate Amino Transf (AST/SGOT) 80H, Alanine Aminotransferase (ALT/SGPT) 41, Alkaline Phosphatase 82, Total Protein 5.8L, Albumin 3.3 Home Meds Active Oxyir Tablet (Oxycodone HCl) 5 Mg Tab 5 Mg PO Q4H PRN 7 Days Aspirin EC (Aspirin) 81 Mg Tablet.dr 81 Mg PO BID WITH MEALS 14 Days Reported Hydrochlorothiazide 25 Mg Tablet 25 Mg PO DAILY Atorvastatin Calcium 10 Mg Tablet 10 Mg PO HS Lisinopril 40 Mg Tablet 40 Mg PO DAILY Hydroxyzine HCl 25 Mg Tablet 25 Mg PO DAILY Assessment/Pt Instructions WBAT on Left Leg. Walker for assist. Dry telfa to left knee daily. Outpatient therapy to start Saturday at [facility]. F/U with Dr. Iker Dewey in 3 weeks. Discharge Instructions Discharge Diet: Regular Diet Discharge Physical Examination Vital Signs Vital Signs Date Time Temp Pulse Resp B/P (MAP) Pulse Ox O2 Delivery O2 Flow Rate FiO2 07/25/22 09:00 94 Room Air 2.00 07/25/22 07:06 36.3 114 18 137/82 (100) Extremity: Other (L Knee: Incision C/D/I, +DF of ankle, no s/s of DVT) Allergies: Coded Allergies: No Known Drug Allergies (Unverified , 07/11/22) Discharge Summary Date of Admission Date of Discharge IKER DEWEY MD Jul 25, 2022 10:01
--- NOTE | 2022-07-25 10:51 | Progress Note ---
SUNITA SANTANA 07/25/22 1051: Subjective Date Seen by a Provider: Jul 25, 2022 Time Seen by a Provider: 09:00 Subjective/Events-last exam Néstor was up walking before visit today. He says his pain level is still high despite receiving oxy at 4AM and morphine at 5:23 this morning. He rates his pa in at a level 8/10. He says he has not had a bowel movement yet and is not passing gas. Denies N/V. He is ready to go home Review of Systems General: No Chills, No Night Sweats HEENT: No Head Aches Pulmonary: No Dyspnea, No Cough Cardiovascular: No: Chest Pain Gastrointestinal: No: Nausea, Vomiting, Abdominal Pain Musculoskeletal: leg pain Objective Exam Last Set of Vital Signs Vital Signs Date Time Temp Pulse Resp B/P (MAP) Pulse Ox O2 Delivery O2 Flow Rate FiO2 07/25/22 09:00 94 Room Air 2.00 07/25/22 07:06 36.3 114 18 137/82 (100) Capillary Refill : I&O Intake and Output 07/25/22 00:00 Intake Total 3300 ml Output Total 1300 ml Balance 2000 ml Intake Oral 2250 ml IV Total 1050 ml Output Urine Total 1300 ml # Voids 9 # Bowel Movements 1 General: Alert, Oriented X3, Cooperative, No Acute Distress HEENT: Atraumatic, PERRLA, EOMI, Mucous Memb Moist/[place] Neck: Supple, No JVD Lungs: Clear to Auscultation, Normal Air Movement Heart: Normal S1, Normal S2, Other (tachycardic) Abdomen: Soft, No Tenderness Extremities: No Clubbing, No Cyanosis, Normal Pulses Skin: No Rashes, No Significant Lesion Neuro: Normal Tone, Cranial Nerves 3-12 NL Psych/Mental Status: Mental Status NL Results Lab Laboratory Tests 07/25/22 05:40: White Blood Count 8.2, Red Blood Count 4.61, Hemoglobin 13.1L, Hematocrit 38L, Mean Corpuscular Volume 83, Mean Corpuscular Hemoglobin 28, Mean Corpuscular Hemoglobin Concent 34, Red Cell Distribution Width 13.2, Platelet Count 191, Mean Platelet Volume 12.0, Immature Granulocyte % (Auto) 0, Neutrophils (%) (Auto) 68, Lymphocytes (%) (Auto) 16, Monocytes (%) (Auto) 15H, Eosinophils (%) (Auto) 1, Basophils (%) (Auto) 0, Neutrophils # (Auto) 5.5, Lymphocytes # (Auto) 1.3, Monocytes # (Auto) 1.2H, Eosinophils # (Auto) 0.1, Basophils # (Auto) 0.0, Immature Granulocyte # (Auto) 0.0, Sodium Level 133L, Potassium Level 3.4L, Chloride Level 99, Carbon Dioxide Level 25, Anion Gap 9, Blood Urea Nitrogen 6L, Creatinine 0.59L, Estimat Glomerular Filtration Rate 109, BUN/Creatinine Ratio 10, Glucose Level 138H, Calcium Level 8.8, Corrected Calcium 9.4, Total Bilirubin 1.3H, Aspartate Amino Transf (AST/SGOT) 80H, Alanine Aminotransferase (ALT/SGPT) 41, Alkaline Phosphatase 82, Total Protein 5.8L, Albumin 3.3 Assessment/Plan Assessment/Plan Assess & Plan/Chief Complaint Uncontrolled HTN - on Norvasc 5 mg, lisinopril 40mg, hctz - controlled this AM - monitoring Post-operative Cares - Encouraged out of bed/ambulation - Encouraged PO intake - not passing gas, bm , but bowel sounds active - on bowel regimen - on morphine and oxy for pain Dispo: Dc to home. SAVANNAH BATISTA DO 07/26/22 0440: Supervisory-Addendum Brief Verification & Attestation Participated in pt care: history, MDM, physical Personally performed: exam, history, MDM, supervision of care Care discussed with: Medical Student Procedures: n/a Results interpretation: Verified all documentation Verification and Attestation of Medical Student E/M Service A medical student performed and documented this service in my presence. I reviewed and verified all information documented by the medical student and made modifications to such information, when appropriate. I personally performed the physical exam and medical decision making. Savannah Batista Jul 26, 2022,04:40 SUNITA SANTANA Jul 25, 2022 10:51 SAVANNAH BATISTA DO Jul 26, 2022 04:40
[2022-07-25 11:40] VITALS: BP 135/77
[2022-07-25 13:25] VITALS: BP 135/77
== END 2022-07-25 13:25 | disposition home or self-care (01) ==
LOC: SDC 05:48 → EDSTATUS 07:30 → 4TH 10:47 → SDC 07-25 13:25
PROVIDERS: ATTEND Orthopaedic Surgery
DX: M17.0 Bilateral primary osteoarthritis of knee (principal); G89.18 Other acute postprocedural pain
CPT/HCPCS: 27447; 64447; 73560; 80053; 85025; 97110 ×2; 97116 ×2; 97162; C1776 ×4; 36415

== ENCOUNTER → 2022-08-14 | Outpatient (CLI) | payer OTHER ==
[~2022-08-14] MED LIST changes: +ASPI-1238 PO; +OXC5T PO
== END ==
LOC: ORTHO 10:23
PROVIDERS: ATTEND Orthopaedic Surgery
DX: Z47.89 Encounter for other orthopedic aftercare (principal); I10 Essential (primary) hypertension; E78.00 Pure hypercholesterolemia, unspecified

== ENCOUNTER 2022-08-23 11:03 | Outpatient (RCR) | payer OTHER | END 2022-08-24 | disposition still patient (30) | PROVIDERS: ATTEND Orthopaedic Surgery | DX: Z47.1 Aftercare following joint replacement surgery (principal); Z96.652 Presence of left artificial knee joint ==

== ENCOUNTER 2022-09-06 11:15 | Outpatient (RCR) | payer OTHER | END 2022-09-23 | disposition home or self-care (01) | PROVIDERS: ATTEND Orthopaedic Surgery | DX: M25.562 Pain in left knee (principal); M25.462 Effusion, left knee; R26.89 Other abnormalities of gait and mobility; Z96.652 Presence of left artificial knee joint ==

== ENCOUNTER → 2022-09-06 | Outpatient (CLI) | payer OTHER ==
--- NOTE | 2022-09-06 08:39 | Diagnostic Imaging Report ---
INDICATION: Left knee pain. TECHNIQUE/COMPARISON: AP and lateral views of the left knee were obtained and compared to 07/23/2022. FINDINGS: There is no change in the alignment and appearance of the left knee prosthesis. There is no sign of fracture or device loosening. IMPRESSION: Well aligned left knee prosthesis with no acute abnormality. Dictated by: Dictated on workstation # [id number]
== END ==
LOC: ORTHO 08:05
PROVIDERS: ATTEND Orthopaedic Surgery
DX: M25.562 Pain in left knee (principal); Z96.652 Presence of left artificial knee joint
CPT/HCPCS: 73560

== ENCOUNTER → 2022-10-17 | Outpatient (CLI) | payer OTHER | LOC: ORTHO 08:39 | PROVIDERS: ATTEND Orthopaedic Surgery | DX: Z47.89 Encounter for other orthopedic aftercare (principal) ==

== ENCOUNTER → 2022-11-28 | Outpatient (CLI) | payer SELFPAY | LOC: ORTHO 11:58 | PROVIDERS: ATTEND Orthopaedic Surgery | DX: M17.11 Unilateral primary osteoarthritis, right knee (principal); E78.00 Pure hypercholesterolemia, unspecified; I10 Essential (primary) hypertension | CPT/HCPCS: 99213 ==

== ENCOUNTER → 2023-01-29 | Outpatient (CLI) | payer SELFPAY ==
[2023-01-29 15:53] LABS: BASOPHILS % (AUTO) 0 % (0-10); EOSINOPHILS # (AUTO) 0.1 10^3/uL (0.0-0.3); EOSINOPHILS % (AUTO) 2 % (0-10); HEMATOCRIT 45 % (40-54); LYMPHOCYTES # (AUTO) 2.1 10^3/uL (1.0-4.0); LYMPHOCYTES % (AUTO) 31 % (12-44); MEAN CORPUSCULAR HEMOGLOBIN 30 pg (25-34); MEAN CORPUSCULAR HGB CONC 35 g/dL (32-36); MEAN CORPUSCULAR VOLUME 85 fL (80-99); MEAN PLATELET VOLUME 11.5 fL (9.0-12.2); MONOCYTES # (AUTO) 0.9 10^3/uL (0.0-1.0); MONOCYTES % (AUTO) 14 % (0-12); NEUTROPHILS # (AUTO) 3.5 10^3/uL (1.8-7.8); NEUTROPHILS % (AUTO) 52 % (42-75); PLATELET COUNT 216 10^3/uL (130-400); WHITE BLOOD COUNT 6.8 10^3/uL (4.3-11.0)
[2023-01-29 16:05] LABS: CLARITY,URINE CLEAR; COLOR,URINE YELLOW
[2023-01-29 16:06] LABS: BACTERIA,URINE NEGATIVE /HPF; BILIRUBIN,URINE NEGATIVE (NEGATIVE); GLUCOSE, URINE (UA) TRACE (NEGATIVE); KETONES,URINE NEGATIVE (NEGATIVE); LEUKOCYTE ESTERASE ,URINE NEGATIVE (NEGATIVE); NITRITE,URINE NEGATIVE (NEGATIVE); PH,URINE 6.5 (5-9); PROTEIN,URINE NEGATIVE (NEGATIVE)
[2023-01-29 16:09] LABS: CALCIUM 9.5 MG/DL (8.5-10.1); CREATININE SERUM 0.74 MG/DL (0.60-1.30); POTASSIUM 3.8 MMOL/L (3.6-5.0)
== END ==
LOC: ORTHO 15:17
PROVIDERS: ATTEND Orthopaedic Surgery
DX: M17.11 Unilateral primary osteoarthritis, right knee (principal)
CPT/HCPCS: 36415; 80048; 81000; 85025

== ENCOUNTER 2023-02-11 08:18 | Outpatient (CLI) | payer SELFPAY ==
[~2023-02-11] VITALS: Ht 175.3 cm; Wt 93.1 kg
[2023-02-11 09:06] VITALS: BP 155/106
== END 2023-02-11 09:22 | disposition home or self-care (01) ==
LOC: PREOP 08:18
PROVIDERS: ATTEND Orthopaedic Surgery
DX: Z01.818 Encounter for other preprocedural examination (principal)

== ENCOUNTER → 2023-03-05 | Outpatient (CLI) | payer SELFPAY ==
[~2023-03-05] MED LIST changes: +CHLO25TA22 PO; +CYCL10TA25 PO; +LISI20TA26 PO; +METO-333 PO
== END ==
LOC: ORTHO 12:45
PROVIDERS: ATTEND Orthopaedic Surgery
DX: Z47.89 Encounter for other orthopedic aftercare (principal)

== ENCOUNTER 2023-03-25 08:00 | Outpatient (RCR) | payer SELFPAY | END 2023-03-25 09:00 | disposition home or self-care (01) | PROVIDERS: ATTEND Orthopaedic Surgery | DX: Z47.1 Aftercare following joint replacement surgery (principal); Z96.651 Presence of right artificial knee joint; R60.0 Localized edema; R26.89 Other abnormalities of gait and mobility; I10 Essential (primary) hypertension ==

== ENCOUNTER → 2023-04-04 | Outpatient (CLI) | payer OTHER ==
--- NOTE | 2023-04-04 13:29 | Diagnostic Imaging Report ---
Examination: Right knee two views COMPARISON: 02/18/2023. FINDINGS: There is right total knee arthroplasty. There is a moderate effusion. No fracture. No dislocation. IMPRESSION: 1. Moderate effusion and soft tissue swelling without fracture. Dictated by: Dictated on workstation # [id number]
== END ==
LOC: ORTHO 11:22
PROVIDERS: ATTEND Orthopaedic Surgery
DX: Z47.89 Encounter for other orthopedic aftercare (principal)
CPT/HCPCS: 73560